=== PATIENT | female | born 1990 | race Caucasian/White ===

== ENCOUNTER 2016-12-01 09:09 | Emergency (ER) | payer OTHER ==
[2016-12-01 09:19] VITALS: RESP 18
--- NOTE | 2016-12-01 09:49 | ED ---
General Adult HPI - General Chief complaint: ENT Stated complaint: Cough/sore throat/headaches Time Seen by Provider: 12/01/16 09:20 Source: patient, RN notes reviewed Mode of arrival: ambulatory Limitations: no limitations - History of Present Illness Initial comments: 26-year-old female presents emergency Department with chief complaint of URI symptoms. Patient states that she just generally does not feel well. She is complaining of body aches, headaches, runny nose, sore throat, cough. She states she has asthma states she has not been wheezing. She's been using her Qvar daily as directed. Patient denies any known fever but states she does feel hot and cold. Patient denies any nausea vomiting diarrhea constipation. Patient denies any ubma-foe-umyrlmh medication use. - Related Data Home Medications Medication Instructions Recorded Confirmed Ibuprofen [Motrin] 200 mg PO ONCE PRN 12/01/16 12/01/16 Previous Rx's Medication Instructions Recorded Promethaz-Cod 6.25-10 mg/5 ml 5 ml PO Q6HR PRN #120 ml 12/01/16 [Phenergan with Codeine] methylPREDNISolone [Medrol Dose 4 mg PO DIRECTED #1 pack 12/01/16 Pack] Allergies Allergy/AdvReac Type Severity Reaction Status Date / Time egg Allergy Unknown Verified 12/01/16 10:24 milk Allergy Unknown Verified 02/14/16 14:38 peanut Allergy Unknown Verified 12/01/16 10:24 pineapple Allergy Swelling Verified 09/11/15 16:25 Review of Systems ROS Statement: Those systems with pertinent positive or pertinent negative responses have been documented in the HPI. ROS Other: All systems not noted in ROS Statement are negative. Past Medical History Additional Past Medical History / Comment(s): BRONCHTIS History of Any Multi-Drug Resistant Organisms: None Reported Past Surgical History: Section Past Psychological History: No Psychological Hx Reported Smoking Status: Former smoker Past Alcohol Use History: Rare Past Drug Use History: None Reported General Exam Limitations: no limitations General appearance: alert, in no apparent distress Head exam: Present: atraumatic, normocephalic, normal inspection Eye exam: Present: normal appearance, PERRL, EOMI. Absent: scleral icterus, conjunctival injection, periorbital swelling ENT exam: Present: normal exam, normal oropharynx, mucous membranes moist, TM's normal bilaterally, normal external ear exam Neck exam: Present: normal inspection, full ROM. Absent: tenderness, meningismus, lymphadenopathy Respiratory exam: Present: normal lung sounds bilaterally. Absent: respiratory distress, wheezes, rales, rhonchi, stridor Cardiovascular Exam: Present: regular rate, normal rhythm, normal heart sounds. Absent: systolic murmur, diastolic murmur, rubs, gallop, clicks GI/Abdominal exam: Present: soft, normal bowel sounds. Absent: distended, tenderness, guarding, rebound, rigid Course Vital Signs 12/01/16 09:17 Temperature 98.2 F Pulse Rate 89 Respiratory 18 Rate Blood Pressure 127/75 O2 Sat by Pulse 98 Oximetry Medical Decision Making - Lab Data Lab Results 12/01/16 12/01/16 Range/Units 09:40 09:40 Influenza Type A RNA Not Detected (Not Detectd) Influenza Type B (PCR) Not Detected (Not Detectd) Group A Strep Rapid Negative (Negative) Disposition Clinical Impression: URI (upper respiratory infection), Asthma Disposition: HOME SELF-CARE Condition: Stable Instructions: Asthma (ED) Additional Instructions: Please return to the Emergency Department if symptoms worsen or any other concerns. Prescriptions: Promethaz-Cod 6.25-10 mg/5 ml [Phenergan with Codeine] 5 ml PO Q6HR PRN #120 ml PRN Reason: Cough methylPREDNISolone [Medrol Dose Pack] 4 mg PO DIRECTED #1 pack Time of Disposition: 11:39
--- NOTE | 2016-12-01 11:22 | XR ---
EXAMINATION TYPE: XR chest 2V DATE OF EXAM: 12/01/2016 10:19 AM COMPARISON: NONE INDICATION: Pain cough congestion TECHNIQUE: Single frontal view of the chest is obtained. FINDINGS: The heart size is normal. The pulmonary vasculature is normal. The lungs are clear. IMPRESSION: 1. No acute pulmonary process.
[2016-12-01 11:52] VITALS: BP 146/67; PULSE 93; TEMP 98.1
== END 2016-12-01 11:52 | disposition home or self-care (01) ==
LOC: EC 09:09
DX: J06.9 Acute upper respiratory infection, unspecified (principal); J45.909 Unspecified asthma, uncomplicated; Z79.51 Long term (current) use of inhaled steroids; Z91.012 Allergy to eggs; Z91.011 Allergy to milk products; Z91.010 Allergy to peanuts; Z91.018 Allergy to other foods; Z87.891 Personal history of nicotine dependence
CPT/HCPCS: 71020; 87081; 87430; 87502; 99283; 99284

== ENCOUNTER 2017-04-12 21:33 | Emergency (ER) | payer OTHER ==
[2017-04-12 21:44] VITALS: TEMP 98.6
[2017-04-12] MEDS ORDERED: SODIUM CHLORIDE 0.9% 500 ML IV STA (21:48)
[2017-04-12] MEDS ORDERED: DICYCLOMINE 20 MG TAB PO STA (21:48)
--- NOTE | 2017-04-12 21:55 | ED ---
Abdominal Pain HPI - General Chief Complaint: Abdominal Pain Stated Complaint: abdominal and back pain Time Seen by Provider: 04/12/17 21:45 Source: patient, RN notes reviewed Mode of arrival: ambulatory Limitations: no limitations - History of Present Illness Initial Comments: 27 -year-old female presents emergency Department chief complaint of abdominal pain over the last few days. Patient states started with left flank pain and now has progressed to diffuse abdominal discomfort. She denies any nausea vomiting diarrhea constipation. She states she initially thought she just slept wrong because she slept in a chair. Patient states that she's had no fever or chills. She states nothing seems to make her symptoms feel better or worse. She does have a history of GERD states that she is having no difficulty with that at this time. Patient states that she has been trying to increase her fluid intake. Patient denies any chest pain, shortness breath some dysuria or hematuria. Denies any chance . Patient did 2 prior sections no other abdominal surgeries. - Related Data Home Medications Medication Instructions Recorded Confirmed Albuterol Sulfate [Ventolin Hfa] 1 - 2 puff INHALATION RT-Q6H PRN 04/12/1704/12 Beclomethasone Dipropionate [Qvar 1 puff INHALATION RT-BID 04/12/17 04/12/17 80 mcg] Previous Rx's Medication Instructions Recorded Dicyclomine [Bentyl] 20 mg PO TID #30 tablet 04/12/17 Allergies Allergy/AdvReac Type Severity Reaction Status Date / Time egg Allergy Unknown Verified 04/12/17 21:46 milk Allergy Unknown Verified 04/12/17 21:46 peanut Allergy Unknown Verified 04/12/17 21:46 pineapple Allergy Swelling Verified 04/12/17 21:46 Review of Systems ROS Statement: Those systems with pertinent positive or pertinent negative responses have been documented in the HPI. ROS Other: All systems not noted in ROS Statement are negative. Past Medical History Past Medical History: Asthma Additional Past Medical History / Comment(s): BRONCHTIS History of Any Multi-Drug Resistant Organisms: None Reported Past Surgical History: Section Additional Past Surgical History / Comment(s): c-sect x 2 Past Psychological History: No Psychological Hx Reported Smoking Status: Current every day smoker Past Alcohol Use History: Rare Past Drug Use History: Marijuana General Exam Limitations: no limitations General appearance: alert, in no apparent distress Neck exam: Present: normal inspection. Absent: tenderness, meningismus, lymphadenopathy Respiratory exam: Present: normal lung sounds bilaterally. Absent: respiratory distress, wheezes, rales, rhonchi, stridor Cardiovascular Exam: Present: regular rate, normal rhythm, normal heart sounds. Absent: systolic murmur, diastolic murmur, rubs, gallop, clicks GI/Abdominal exam: Present: soft, tenderness (mild diffuse), normal bowel sounds. Absent: distended, guarding, rebound, rigid Back exam: Absent: CVA tenderness (R), CVA tenderness (L) Neurological exam: Present: alert, oriented X3, CN II-XII intact Skin exam: Present: warm, dry, intact, normal color. Absent: rash Course Vital Signs 04/12/17 21:40 Temperature 98.6 F Pulse Rate 69 Respiratory 18 Rate Blood Pressure 116/67 O2 Sat by Pulse 98 Oximetry Medical Decision Making - Medical Decision Making 27-year-old female presented emergency from for abdominal pain which is mild in nature and diffuse. This most likely is a viral illness enteritis type picture. Patient lab work within normal limits. Patient be discharged on Bentyl advise increased fluids return parameters were discussed. - Lab Data Result diagrams: 04/12/17 21:55 04/12/17 21:55 Lab Results 04/12/17 04/12/17 04/12/17 Range/Units 21:55 21:55 21:55 WBC 7.7 (3.8-10.6) k/uL RBC 4.51 (3.80-5.40) m/uL Hgb 12.7 (11.4-16.0) gm/dL Hct 38.4 (34.0-46.0) % MCV 85.1 (80.0-100.0) fL MCH 28.2 (25.0-35.0) pg MCHC 33.1 (31.0-37.0) g/dL RDW 14.2 (11.5-15.5) % Plt Count 207 (150-450) k/uL Neutrophils % 67 % Lymphocytes % 23 % Monocytes % 4 % Eosinophils % 5 % Basophils % 0 % Neutrophils # 5.1 (1.3-7.7) k/uL Lymphocytes # 1.8 (1.0-4.8) k/uL Monocytes # 0.3 (0-1.0) k/uL Eosinophils # 0.4 (0-0.7) k/uL Basophils # 0.0 (0-0.2) k/uL Sodium 139 (137-145) mmol/L Potassium 4.2 (3.5-5.1) mmol/L Chloride 110 H (98-107) mmol/L Carbon Dioxide 20 L (22-30) mmol/L Anion Gap 9 mmol/L BUN 12 (7-17) mg/dL Creatinine 0.70 (0.52-1.04) mg/dL Est GFR (MDRD) Af Amer >60 (>60 ml/min/1.73 sqM) Est GFR (MDRD) Non-Af >60 (>60 ml/min/1.73 sqM) Glucose 94 (74-99) mg/dL Calcium 9.1 (8.4-10.2) mg/dL Total Bilirubin 0.4 (0.2-1.3) mg/dL AST 19 (14-36) U/L ALT 28 (9-52) U/L Alkaline Phosphatase 65 (38-126) U/L Total Protein 6.7 (6.3-8.2) g/dL Albumin 4.0 (3.5-5.0) g/dL Amylase 35 (30-110) U/L Lipase 35 (23-300) U/L Urine Color Urine Appearance (Clear) Urine pH (5.0-8.0) Ur Specific [place] (1.001-1.035) Urine Protein (Negative) Urine Glucose (UA) (Negative) Urine Ketones (Negative) Urine Blood (Negative) Urine Nitrite (Negative) Urine Bilirubin (Negative) Urine Urobilinogen (<2.0) mg/dL Ur Leukocyte Esterase (Negative) Urine HCG, Qual Not Detected (Not Detectd) 04/12/17 Range/Units 21:55 WBC (3.8-10.6) k/uL RBC (3.80-5.40) m/uL Hgb (11.4-16.0) gm/dL Hct (34.0-46.0) % MCV (80.0-100.0) fL MCH (25.0-35.0) pg MCHC (31.0-37.0) g/dL RDW (11.5-15.5) % Plt Count (150-450) k/uL Neutrophils % % Lymphocytes % % Monocytes % % Eosinophils % % Basophils % % Neutrophils # (1.3-7.7) k/uL Lymphocytes # (1.0-4.8) k/uL Monocytes # (0-1.0) k/uL Eosinophils # (0-0.7) k/uL Basophils # (0-0.2) k/uL Sodium (137-145) mmol/L Potassium (3.5-5.1) mmol/L Chloride (98-107) mmol/L Carbon Dioxide (22-30) mmol/L Anion Gap mmol/L BUN (7-17) mg/dL Creatinine (0.52-1.04) mg/dL Est GFR (MDRD) Af Amer (>60 ml/min/1.73 sqM) Est GFR (MDRD) Non-Af (>60 ml/min/1.73 sqM) Glucose (74-99) mg/dL Calcium (8.4-10.2) mg/dL Total Bilirubin (0.2-1.3) mg/dL AST (14-36) U/L ALT (9-52) U/L Alkaline Phosphatase (38-126) U/L Total Protein (6.3-8.2) g/dL Albumin (3.5-5.0) g/dL Amylase (30-110) U/L Lipase (23-300) U/L Urine Color Yellow Urine Appearance Clear (Clear) Urine pH 6.0 (5.0-8.0) Ur Specific [place] 1.027 (1.001-1.035) Urine Protein Trace H (Negative) Urine Glucose (UA) Negative (Negative) Urine Ketones Negative (Negative) Urine Blood Negative (Negative) Urine Nitrite Negative (Negative) Urine Bilirubin Negative (Negative) Urine Urobilinogen 2.0 (<2.0) mg/dL Ur Leukocyte Esterase Negative (Negative) Urine HCG, Qual (Not Detectd) Disposition Clinical Impression: Abdominal pain Disposition: HOME SELF-CARE Condition: Stable Instructions: Abdominal Pain (ED) Additional Instructions: Please return to the Emergency Department if symptoms worsen or any other concerns. Prescriptions: Dicyclomine [Bentyl] 20 mg PO TID #30 tablet Referrals: Chace Meng MD [Primary Care Provider] - 1-2 days Time of Disposition: 22:45
[2017-04-12 22:12] LABS: Appearance,Urine Clear (Clear); Bilirubin,Urine Negative (Negative); Glucose,Urine (UA) Negative (Negative); Ketones,Urine Negative (Negative); Leukocyte Esterase,Urine Negative (Negative); Nitrite,Urine Negative (Negative); Protein,Urine Trace (Negative); Specific Gravity,Urine 1.027 (1.001-1.035); UA Billing (MACRO vs. MICRO) CHEM
[2017-04-12 22:14] LABS: Basophils % (A) 0 %; CH 27.9; Eosinophils # (A) 0.4 k/uL (0-0.7); Eosinophils % (A) 5 %; HCT 38.4 % (34.0-46.0); HDW 2.52; HGB 12.7 gm/dL (11.4-16.0); Luc % (Auto) 1; Lymphocytes # (A) 1.8 k/uL (1.0-4.8); Lymphocytes % (A) 23 %; MCH 28.2 pg (25.0-35.0); MCHC 33.1 g/dL (31.0-37.0); MCV 85.1 fL (80.0-100.0); Mean Platelet Volume 8.5; Monocytes # (A) 0.3 k/uL (0-1.0); Monocytes % (A) 4 %; Neutrophils # (A) 5.1 k/uL (1.3-7.7); Neutrophils % (A) 67 %; RBC 4.51 m/uL (3.80-5.40); RDW 14.2 % (11.5-15.5); WBC 7.7 k/uL (3.8-10.6); WBC (Perox) 8.14
[2017-04-12 22:22] LABS: ALT 28 U/L (9-52); AST 19 U/L (14-36); Alkaline Phosphatase 65 U/L (38-126); Amylase 35 U/L (30-110); Anion Gap 9 mmol/L; Blood Urea Nitrogen 12 mg/dL (7-17); Calcium 9.1 mg/dL (8.4-10.2); Carbon Dioxide 20 mmol/L (22-30); Chloride 110 mmol/L (98-107); Glucose 94 mg/dL (74-99); Non-African American GFR(MDRD) >60 (>60 ml/min/1.73 sqM); Potassium 4.2 mmol/L (3.5-5.1); Sodium 139 mmol/L (137-145); Total Bilirubin 0.4 mg/dL (0.2-1.3); Total Protein 6.7 g/dL (6.3-8.2)
[2017-04-12 23:08] VITALS: BP 111/74; PULSE 77; RESP 16
--- NOTE | 2017-04-13 02:58 | XR ---
EXAM: XR Abdomen, 1 View. CLINICAL HISTORY: Reason: abdominal pain TECHNIQUE: Frontal supine view of the abdomen/pelvis. COMPARISON: No relevant prior studies available. FINDINGS: Gastrointestinal tract: Unremarkable. No dilation. Bones: Unremarkable. No acute fracture. IMPRESSION: Normal abdomen and pelvis.
== END 2017-04-12 23:07 | disposition home or self-care (01) ==
LOC: EC 21:33
DX: R10.84 Generalized abdominal pain (principal); J45.909 Unspecified asthma, uncomplicated; Z79.51 Long term (current) use of inhaled steroids; F17.200 Nicotine dependence, unspecified, uncomplicated; Z91.010 Allergy to peanuts; Z91.011 Allergy to milk products; Z91.012 Allergy to eggs; Z91.018 Allergy to other foods
CPT/HCPCS: 36415; 74000; 80053; 81003; 81025; 82150; 83690; 85025; 96360; 99284

== ENCOUNTER 2017-04-28 18:30 | Emergency (ER) | payer OTHER ==
[2017-04-28 18:39] VITALS: BP 128/63; PULSE 76; RESP 18; TEMP 97.5
--- NOTE | 2017-04-28 18:49 | ED ---
General Adult HPI - General Chief complaint: Dental/Oral Stated complaint: Dental Time Seen by Provider: 04/28/17 18:40 Source: patient, RN notes reviewed Mode of arrival: ambulatory Limitations: no limitations - History of Present Illness Initial comments: 19-year-old female presents emergency room chief complaint of left-sided dental pain. Patient states this started about 3 days ago. Patient states that she continues to have throbbing and irritation to the left side of her mouth. Patient states that there is been no drainage or discharge patient denies any fever or chills. Patient states she doesn't currently have dental insurance. Patient was concerned due to her symptoms so she thought that she should be evaluated. Patient states she is not currently having any other symptoms at this time.Patient denies any recent fever, chills, shortness of breath, chest pain, back pain, abdominal pain, nausea vomiting, numbness or tingling, dysuria or hematuria, constipation or diarrhea, headaches or visual changes, or any other current symptoms. - Related Data Home Medications Medication Instructions Recorded Confirmed Albuterol Sulfate [Ventolin Hfa] 1 - 2 puff INHALATION RT-Q6H PRN 04/12/1704/12 Beclomethasone Dipropionate [Qvar 1 puff INHALATION RT-BID 04/12/17 04/12/17 80 mcg] Previous Rx's Medication Instructions Recorded Dicyclomine [Bentyl] 20 mg PO TID #30 tablet 04/12/17 Penicillin V Potassium [Pen Vee K] 500 mg PO TID #40 tab 04/28/17 traMADol HCl [Ultram] 50 mg PO Q4H PRN #20 tab 04/28/17 Allergies Allergy/AdvReac Type Severity Reaction Status Date / Time egg Allergy Unknown Verified 04/28/17 18:39 milk Allergy Unknown Verified 04/28/17 18:39 peanut Allergy Unknown Verified 04/28/17 18:39 pineapple Allergy Swelling Verified 04/28/17 18:39 Review of Systems ROS Statement: Those systems with pertinent positive or pertinent negative responses have been documented in the HPI. ROS Other: All systems not noted in ROS Statement are negative. Past Medical History Past Medical History: Asthma Additional Past Medical History / Comment(s): BRONCHITIS History of Any Multi-Drug Resistant Organisms: None Reported Past Surgical History: Section Additional Past Surgical History / Comment(s): c-sect x 2 Past Psychological History: No Psychological Hx Reported Smoking Status: Current every day smoker Past Alcohol Use History: Occasional Past Drug Use History: Marijuana General Exam Limitations: no limitations General appearance: alert Head exam: Present: atraumatic, normocephalic, normal inspection ENT exam: Present: normal exam, mucous membranes moist, other (Patient does appear to have a fracture to tooth #16 no obvious abscess identified) Neck exam: Present: normal inspection. Absent: tenderness, meningismus, lymphadenopathy Respiratory exam: Present: normal lung sounds bilaterally. Absent: respiratory distress, wheezes, rales, rhonchi, stridor Cardiovascular Exam: Present: regular rate, normal rhythm, normal heart sounds. Absent: systolic murmur, diastolic murmur, rubs, gallop, clicks Neurological exam: Present: alert, oriented X3 Psychiatric exam: Present: normal affect, normal mood Skin exam: Present: warm, dry, intact, normal color. Absent: rash Course Vital Signs 04/28/17 18:36 Temperature 97.5 F L Pulse Rate 76 Respiratory 18 Rate Blood Pressure 128/63 O2 Sat by Pulse 98 Oximetry Medical Decision Making - Medical Decision Making 19-year-old female presents for dental pain. This and will start her on antibiotics and pain medication. We did discuss close follow-up with the dentist we did discuss return parameters all the questions. She stated that she understood and she is in splint. This time patient will be discharged home. Disposition Clinical Impression: Dental caries Disposition: HOME SELF-CARE Condition: Stable Instructions: Dental Caries (ED) Additional Instructions: Please use medication as discussed. Please follow up with family doctor if symptoms have not improved over the next two days. Please return to the emergency room if your symptoms increase or worsen or for any other concerns. [facility] [place] [address] [phone] (existing clients only) For new clients: [phone] 1st consult: $50 (includes Xrays) Usually 30% less then private dentist for visits after. [employer] Have to pay $50 for Xrays anmd rest is covered. [phone] Prescriptions: Penicillin V Potassium [Pen Vee K] 500 mg PO TID #40 tab traMADol HCl [Ultram] 50 mg PO Q4H PRN #20 tab PRN Reason: Pain Referrals: Chace Meng MD [Primary Care Provider] - 1-2 days Time of Disposition: 18:49
== END 2017-04-28 18:55 | disposition home or self-care (01) ==
LOC: EC 18:30
DX: K02.9 Dental caries, unspecified (principal); J45.909 Unspecified asthma, uncomplicated; F17.200 Nicotine dependence, unspecified, uncomplicated; Z79.51 Long term (current) use of inhaled steroids; Z91.012 Allergy to eggs; Z91.011 Allergy to milk products; Z91.010 Allergy to peanuts; Z91.018 Allergy to other foods
CPT/HCPCS: 99282

== ENCOUNTER 2017-05-22 10:46 | Emergency (ER) | payer BC, OTHER ==
[2017-05-22 12:34] VITALS: PULSE 74; TEMP 98.2
[2017-05-22 12:50] LABS: Basophils % (A) 0 %; CH 28.9; CHCM 33.5; Eosinophils # (A) 0.4 k/uL (0-0.7); Eosinophils % (A) 5 %; HCT 38.9 % (34.0-46.0); HDW 2.29; HGB 13.1 gm/dL (11.4-16.0); Luc # (Auto) 0.08; Luc % (Auto) 1; Lymphocytes # (A) 1.5 k/uL (1.0-4.8); Lymphocytes % (A) 20 %; MCH 29.3 pg (25.0-35.0); MCHC 33.7 g/dL (31.0-37.0); MCV 86.7 fL (80.0-100.0); Mean Platelet Volume 8.3; Monocytes # (A) 0.3 k/uL (0-1.0); Monocytes % (A) 4 %; Neutrophils # (A) 5.1 k/uL (1.3-7.7); Neutrophils % (A) 69 %; RBC 4.49 m/uL (3.80-5.40); RDW 14.7 % (11.5-15.5); WBC 7.3 k/uL (3.8-10.6); WBC (Perox) 7.44
[2017-05-22 13:31] LABS: Appearance,Urine Cloudy (Clear); Bilirubin,Urine Negative (Negative); Glucose,Urine (UA) Negative (Negative); Ketones,Urine Negative (Negative); Leukocyte Esterase,Urine Trace (Negative); Mucus,Urine Occasional /hpf; Nitrite,Urine Negative (Negative); PH, Urine 6.5 (5.0-8.0); Particle Count 5044; Protein,Urine 1+ (Negative); RBC,Urine 19 /hpf (0-5); Specific Gravity,Urine 1.021 (1.001-1.035); Squamous Epithelial Cell,Urine 8 /hpf (0-4); UA Billing (MACRO vs. MICRO) MICRO; WBC,Urine 3 /hpf (0-5)
--- NOTE | 2017-05-22 13:40 | US ---
EXAMINATION TYPE: US OB <= 14 wk fetus DATE OF EXAM: 05/22/2017 COMPARISON: NONE CLINICAL HISTORY: Pain. Pelvic cramping and bleeding x 1 day, 6, para 3, 1, miscarri age 1, history of 2 c-sections EXAM PERFORMED: Transabdominal (TA) EXAM MEASUREMENTS: GESTATIONAL AGE / DATING Physician Established: ( 8 weeks/5 days) EDC: 12/27/2017 Dates by LMP: Unknown Dates by First Scan: No previous Dates by Current Scan for: (9 weeks/1 days) EDC: 12/24/2017 MATERNAL ANATOMY Uterus: 12.3 x 6.1 x 6.9cm, anteverted Right Ovary: 3.2 x 1.5 x 1.7cm Left Ovary: 2.7 x 1.6 x 2.8cm Post CDS / Adnexa: wnl Presence of free fluid: no Presence of corpus luteal cyst: left ovary: 1.4 x 1.2 x 1.1cm hypoechoic area with peripheral vascula rity, probable corpus luteum Presence of subchorionic bleed: 2.5 x 1.0 x 2.2cm hypoechoic area inferior to gestational sac, relati ng to subchorionic hemorrhage GESTATION / SURVEY CRL: 2.5cm (9 weeks/1 days) Yolk Sac (normal less than 6mm): 3.7mm Heart Rate: 175 bpm Rhythm: Normal IUP: Viable IUP Date of LMP: Unknown Beta HcG (if available): Not available at time of exam Viable single IUP measuring 9 weeks 1 day with a heart rate of 175bpm and an estimated delivery date of 12/24/2017, 2.5cm hypoechoic area inferior to gestational sac, probable subchorionic bleed. IMPRESSION: 1. Single live intrauterine with a sonographic age of 9 weeks and 1 day and estimated date of delivery of 12/24/2017. Small subchorionic hemorrhage is seen that is approximately 25% the gestati onal sac diameter.
[2017-05-22] MEDS ORDERED: Rhogam IMMUNE GLOBULIN 1,500 UNIT/1 ML IM ONE (13:49)
--- NOTE | 2017-05-22 13:49 | ED ---
Female Urogenital HPI - General Chief complaint: Vaginal Bleeding Stated complaint: poss miscarrage Time Seen by Provider: 05/22/17 12:04 Source: patient, RN notes reviewed, old records reviewed Mode of arrival: ambulatory Limitations: no limitations - History of Present Illness Initial comments: This is a female with CC of vaginal bleeding for one day. She states that she is 8 weeks . She reports she came home from work, and that she had a sudden hua of vaginal bleeding. Patient reports that her OBGYN is Dr. Tineo, but she has not been seen by her for this . She states that her bleeding seemed to slow down. She denies any abdominal pain, and denies any nausea, vomiting. Denies any heavy lifting or trauma to cause the bleeding. She states that she has a negative blood type. Last Menstrual Period: 03/22/17 - Related Data Home Medications Medication Instructions Recorded Confirmed Albuterol Sulfate [Ventolin Hfa] 1 - 2 puff INHALATION RT-QID PRN 04/12/1705/22 Beclomethasone Dipropionate [Qvar 1 - 2 puff INHALATION RT-BID 04/12/17 05/22/17 80 mcg] Allergies Allergy/AdvReac Type Severity Reaction Status Date / Time egg Allergy Unknown Verified 05/22/17 12:45 milk Allergy Unknown Verified 05/22/17 12:45 peanut Allergy Unknown Verified 05/22/17 12:45 pineapple Allergy Swelling Verified 05/22/17 12:45 Review of Systems ROS Statement: Those systems with pertinent positive or pertinent negative responses have been documented in the HPI. ROS Other: All systems not noted in ROS Statement are negative. Past Medical History Past Medical History: Asthma Additional Past Medical History / Comment(s): BRONCHITIS History of Any Multi-Drug Resistant Organisms: None Reported Past Surgical History: Section Additional Past Surgical History / Comment(s): c-sect x 2 Past Psychological History: No Psychological Hx Reported Smoking Status: Current every day smoker Past Alcohol Use History: Occasional Past Drug Use History: Marijuana General Exam - General Exam Comments Initial Comments: This is a well appearing 27 year old female, no distress. Limitations: no limitations General appearance: alert, in no apparent distress Head exam: Present: atraumatic, normocephalic, normal inspection Eye exam: Present: normal appearance, PERRL, EOMI. Absent: scleral icterus, conjunctival injection, periorbital swelling ENT exam: Present: normal exam, mucous membranes moist Neck exam: Present: normal inspection. Absent: tenderness, meningismus, lymphadenopathy Respiratory exam: Present: normal lung sounds bilaterally. Absent: respiratory distress, wheezes, rales, rhonchi, stridor Cardiovascular Exam: Present: regular rate, normal rhythm, normal heart sounds. Absent: systolic murmur, diastolic murmur, rubs, gallop, clicks External exam: Present: normal external exam Speculum exam: Present: vaginal bleeding (cervix appears closed, but there is some bleeding from os.). Absent: normal speculum exam Extremities exam: Present: normal inspection, full ROM, normal capillary refill. Absent: tenderness, pedal edema, joint swelling, calf tenderness Back exam: Present: normal inspection Neurological exam: Present: alert, oriented X3, CN II-XII intact Psychiatric exam: Present: normal affect, normal mood Skin exam: Present: warm, dry, intact, normal color. Absent: rash Course Vital Signs 05/22/17 05/22/17 05/22/17 11:18 12:34 15:06 Temperature 98.3 F 98.2 F Pulse Rate 98 74 74 Respiratory 20 18 17 Rate Blood Pressure 145/78 114/53 116/64 O2 Sat by Pulse 99 97 100 Oximetry Medical Decision Making - Medical Decision Making Thisis a 27 year old female with vaginal bleedling for one day. Pt states that she is around 8 weeks . She is taking prenatals. She states that she had a sudden hua of blood, has no abdominal tenderness, and no severe cramping. Patient cervix is closed, and there is some mild bleeding from the cervical os. Patient Hcg is 111,457, and blood type is O-. US shows Single live intrauterine with sonographic age of 9 weeks 1 day. Estimated date of delivery is 12/22/2017. Small subchorionic hemorrhage at the scene approximately 25% the gestational sac name. Given bleeding with , and negative Rh, patient is given Rhogam. Discussed that patient needs to repeat Hcg in 2 days. Patient informed that due to subchorionic bleed, that can be due to the bleeding at this time, however she can still be miscarrying. Patient advised on pelvic rest and that she needs to follow up with PCP. REturn parameters discussed. - Lab Data Result diagrams: 05/22/17 12:28 Lab Results 05/22/17 05/22/17 05/22/17 Range/Units 12:28 12:28 12:28 WBC 7.3 (3.8-10.6) k/uL RBC 4.49 (3.80-5.40) m/uL Hgb 13.1 (11.4-16.0) gm/dL Hct 38.9 (34.0-46.0) % MCV 86.7 (80.0-100.0) fL MCH 29.3 (25.0-35.0) pg MCHC 33.7 (31.0-37.0) g/dL RDW 14.7 (11.5-15.5) % Plt Count 215 (150-450) k/uL Neutrophils % 69 % Lymphocytes % 20 % Monocytes % 4 % Eosinophils % 5 % Basophils % 0 % Neutrophils # 5.1 (1.3-7.7) k/uL Lymphocytes # 1.5 (1.0-4.8) k/uL Monocytes # 0.3 (0-1.0) k/uL Eosinophils # 0.4 (0-0.7) k/uL Basophils # 0.0 (0-0.2) k/uL HCG, Quant 307994.0 mIU/mL Urine Color Urine Appearance (Clear) Urine pH (5.0-8.0) Ur Specific [place] (1.001-1.035) Urine Protein (Negative) Urine Glucose (UA) (Negative) Urine Ketones (Negative) Urine Blood (Negative) Urine Nitrite (Negative) Urine Bilirubin (Negative) Urine Urobilinogen (<2.0) mg/dL Ur Leukocyte Esterase (Negative) Urine RBC (0-5) /hpf Urine WBC (0-5) /hpf Ur Squamous Epith Cells (0-4) /hpf Urine Mucus (None) /hpf Blood Type O Negative Blood Type Recheck O Neg Antibody Screen 05/22/17 05/22/17 Range/Units 12:28 13:49 WBC (3.8-10.6) k/uL RBC (3.80-5.40) m/uL Hgb (11.4-16.0) gm/dL Hct (34.0-46.0) % MCV (80.0-100.0) fL MCH (25.0-35.0) pg MCHC (31.0-37.0) g/dL RDW (11.5-15.5) % Plt Count (150-450) k/uL Neutrophils % % Lymphocytes % % Monocytes % % Eosinophils % % Basophils % % Neutrophils # (1.3-7.7) k/uL Lymphocytes # (1.0-4.8) k/uL Monocytes # (0-1.0) k/uL Eosinophils # (0-0.7) k/uL Basophils # (0-0.2) k/uL HCG, Quant mIU/mL Urine Color Yellow Urine Appearance Cloudy H (Clear) Urine pH 6.5 (5.0-8.0) Ur Specific [place] 1.021 (1.001-1.035) Urine Protein 1+ H (Negative) Urine Glucose (UA) Negative (Negative) Urine Ketones Negative (Negative) Urine Blood Large H (Negative) Urine Nitrite Negative (Negative) Urine Bilirubin Negative (Negative) Urine Urobilinogen 2.0 (<2.0) mg/dL Ur Leukocyte Esterase Trace H (Negative) Urine RBC 19 H (0-5) /hpf Urine WBC 3 (0-5) /hpf Ur Squamous Epith Cells 8 H (0-4) /hpf Urine Mucus Occasional H (None) /hpf Blood Type Blood Type Recheck Antibody Screen NEGATIVE - Radiology Data Radiology results: report reviewed Single live intrauterine with sonographic age of 9 weeks 1 day. Estimated date of delivery is 12/22/2017. Small subchorionic hemorrhage at the scene approximately 25% the gestational sac name. Disposition Clinical Impression: Threatened miscarriage, Subchorionic hemorrhage in first trimester Disposition: HOME SELF-CARE Condition: Good Instructions: Miscarriage (ED) Additional Instructions: Patient needs pelvic rest, until following up with MEDICAL TECHNOLOGIST GENERALIST. No heavy lifting. Repeat blood work in 2 days. Return to the emergency department if any alarming signs or symptoms occur. Referrals: Chace Meng MD [Primary Care Provider] - 1-2 days Ruba Tineo DO [Doctor of Osteopathic Medicine] - 1-2 days Time of Disposition: 14:32
[2017-05-22 15:07] VITALS: BP 116/64; RESP 17
== END 2017-05-22 15:07 | disposition home or self-care (01) ==
LOC: EC 10:46
DX: O20.0 Threatened abortion (principal); O99.89 Other specified diseases and conditions complicating pregnancy, childbirth and the puerperium; R93.5 Abnormal findings on diagnostic imaging of other abdominal regions, including retroperitoneum; O99.331 Smoking (tobacco) complicating pregnancy, first trimester; F17.200 Nicotine dependence, unspecified, uncomplicated; Z3A.09 9 weeks gestation of pregnancy; Z91.010 Allergy to peanuts; Z91.011 Allergy to milk products; Z91.012 Allergy to eggs; Z91.018 Allergy to other foods; Z79.899 Other long term (current) drug therapy
CPT/HCPCS: 99284; 96372; 36415; 86900; 86901; 85025; 86850; 81001; 84702; 76801; J2791

== ENCOUNTER → 2017-05-24 | Outpatient (CLI) | payer BC, OTHER | END | disposition home or self-care (01) | LOC: LABMAIN 12:29 | PROVIDERS: ATTEND Family Medicine | DX: O20.0 Threatened abortion (principal) | CPT/HCPCS: 36415; 84702 ==

== ENCOUNTER 2017-06-07 22:48 | Emergency (ER) | payer BC, OTHER ==
[2017-06-07] MEDS ORDERED: IPRATROPIUM 0.5 MG/2.5 ML NEBU INHALATION STA (23:47)
[2017-06-07] MEDS ORDERED: predniSONE 20 MG TAB PO STA (23:47)
[2017-06-07] MEDS ORDERED: ALBUTEROL NEBULIZED 2.5 MG/3 ML INHALATION STA (23:47)
--- NOTE | 2017-06-07 23:50 | ED ---
General Adult HPI - General Chief complaint: Shortness of Breath Stated complaint: SOB Time Seen by Provider: 06/07/17 23:39 Source: patient, RN notes reviewed Mode of arrival: ambulatory Limitations: no limitations - History of Present Illness Initial comments: 27-year-old female presents for evaluation of cough and difficulty breathing. Patient has past medical history of asthma. She's had proximally one month history of cough and difficulty breathing. She has been using her inhaler and nebulizer peak control with minimal relief. She has not been any steroids or antibiotics. Denies fever. Denies chest pain. Patient is currently 12 weeks . Denies any abdominal pain or vaginal bleeding. Patient's cough is occasionally productive with clear phlegm. She has been hospitalized for her asthma in the past, no ICU admissions, no intubations. Patient's primary care doctor did prescribe inhaled steroids, however the patient's insurance does not cover this medication. - Related Data Home Medications Medication Instructions Recorded Confirmed Albuterol Sulfate [Ventolin Hfa] 1 - 2 puff INHALATION RT-QID PRN 04/12/1706/07 Beclomethasone Dipropionate [Qvar 1 - 2 puff INHALATION RT-BID 04/12/17 06/07/17 80 mcg] Cetirizine HCl 10 mg PO DAILY 06/07/17 06/07/17 Hab-Rvcu-Kkykn Acid 1 cap PO DAILY 06/07/17 06/07/17 [-U Capsule (formulary)] Previous Rx's Medication Instructions Recorded predniSONE 50 mg PO DAILY #5 tablet 06/08/17 Allergies Allergy/AdvReac Type Severity Reaction Status Date / Time egg Allergy Unknown Verified 06/07/17 23:34 milk Allergy Unknown Verified 06/07/17 23:34 peanut Allergy Unknown Verified 06/07/17 23:34 pineapple Allergy Swelling Verified 06/07/17 23:34 Review of Systems ROS Statement: Those systems with pertinent positive or pertinent negative responses have been documented in the HPI. ROS Other: All systems not noted in ROS Statement are negative. Past Medical History Past Medical History: Asthma Additional Past Medical History / Comment(s): BRONCHITIS History of Any Multi-Drug Resistant Organisms: None Reported Past Surgical History: Section Additional Past Surgical History / Comment(s): c-sect x 2 Past Psychological History: No Psychological Hx Reported Smoking Status: Current every day smoker Past Alcohol Use History: Occasional Past Drug Use History: Marijuana General Exam Limitations: no limitations General appearance: alert, in no apparent distress Head exam: Present: atraumatic, normocephalic Eye exam: Present: normal appearance, PERRL ENT exam: Present: normal exam, mucous membranes moist Neck exam: Present: normal inspection Respiratory exam: Present: wheezes, other (Patient has good air entry, bronchospastic cough, and scattered wheezing throughout). Absent: rales, rhonchi, accessory muscle use Cardiovascular Exam: Present: normal rhythm, tachycardia GI/Abdominal exam: Present: soft. Absent: distended, tenderness Extremities exam: Present: normal inspection, normal capillary refill. Absent: pedal edema, calf tenderness Back exam: Present: normal inspection Neurological exam: Present: alert, oriented X3 Psychiatric exam: Present: normal affect, normal mood Skin exam: Present: warm, dry. Absent: cyanosis, diaphoretic Course Vital Signs 06/07/17 06/08/17 06/08/17 23:14 00:19 00:30 Temperature 99.2 F Pulse Rate 107 H 108 H 112 H Respiratory 22 Rate Blood Pressure 130/85 O2 Sat by Pulse 100 Oximetry - Reevaluation(s) Reevaluation #1: 06/08/17 00:44 On reevaluation, patient is feeling better, good air entry bilaterally with only scattered wheeze. Medical Decision Making - Medical Decision Making 27-year-old female with history of asthma presenting with a one-month history of cough and difficulty breathing. This has significantly worsened over the past 5 days. On initial evaluation patient does have pronounced bronchospastic cough, and except for wheeze. There is no respiratory distress. She is given albuterol, Atrovent, and prednisone emergency department. On reevaluation patient has improved air entry, improve cough, there is no retractions or accessory muscle use. Patient has no conversational dyspnea. She will be given a prescription for 5 days of prednisone. She'll follow-up with her primary care physician. She states she does have both a rescue inhaler and advised albuterol at home. Diagnosis: Asthma exacerbation Disposition Clinical Impression: Asthma with exacerbation Disposition: HOME SELF-CARE Condition: Good Instructions: Asthma (ED) Prescriptions: predniSONE 50 mg PO DAILY #5 tablet Referrals: Chace Meng MD [Primary Care Provider] - 1-2 days Time of Disposition: 00:47
[2017-06-08 00:57] VITALS: BP 118/70; PULSE 78; RESP 16; TEMP 97.8
== END 2017-06-08 00:55 | disposition home or self-care (01) ==
LOC: EC 22:48
DX: O99.511 Diseases of the respiratory system complicating pregnancy, first trimester (principal); J45.901 Unspecified asthma with (acute) exacerbation; O99.331 Smoking (tobacco) complicating pregnancy, first trimester; F17.200 Nicotine dependence, unspecified, uncomplicated; Z79.51 Long term (current) use of inhaled steroids; Z79.899 Other long term (current) drug therapy; Z91.010 Allergy to peanuts; Z91.011 Allergy to milk products; Z91.012 Allergy to eggs; Z91.018 Allergy to other foods; Z3A.12 12 weeks gestation of pregnancy
CPT/HCPCS: 94640; 99284; J7512

== ENCOUNTER → 2017-06-29 | Outpatient (CLI) | payer OTHER ==
[2017-06-29 09:28] LABS: CH 29.8; HCT 38.8 % (34.0-46.0); HDW 2.61; HGB 12.5 gm/dL (11.4-16.0); MCH 29.4 pg (25.0-35.0); MCHC 32.3 g/dL (31.0-37.0); MCV 90.9 fL (80.0-100.0); Mean Platelet Volume 7.9; RBC 4.27 m/uL (3.80-5.40)
[2017-06-29 09:55] LABS: Glucose 89 mg/dL (74-99); Non-African American GFR(MDRD) >60 (>60 ml/min/1.73 sqM)
[2017-06-29 10:16] LABS: Hepatitis B Surface Ag Index 0.06
[2017-06-29 17:01] LABS: Treponemal Ab Non-Reactive (Non-Reactive)
== END | disposition home or self-care (01) ==
LOC: LABWHC1 08:43
PROVIDERS: ATTEND Obstetrics & Gynecology
DX: Z34.81 Encounter for supervision of other normal pregnancy, first trimester (principal); Z3A.00 Weeks of gestation of pregnancy not specified
CPT/HCPCS: 36415; 82565; 82947; 85027; 86762; 86780; 86850; 86870; 86880; 86900; 86901; 87340; 87390

== ENCOUNTER 2017-06-30 12:29 | Inpatient (IN) | payer OTHER ==
[2017-06-30] MEDS ORDERED: IPRATROPIUM-ALBUTEROL 3 ML NEB INHALATION STA (13:11)
--- NOTE | 2017-06-30 14:11 | XR ---
EXAMINATION TYPE: XR chest 2V DATE OF EXAM: 06/30/2017 COMPARISON: Chest x-ray December 01, 2016 HISTORY: History of asthma presents with shortness of breath. Patient orally second trimester pregnan cy. TECHNIQUE: Frontal and lateral views of the chest are obtained. FINDINGS: There is suspicious airspace opacity in the left lung base near heart border on frontal vi ew likely within the lingula on lateral view. Silhouetting of left heart border is noted. Right lung is clear. No large pleural effusion or pneumothorax is seen. The cardiac silhouette size is within no rmal limits. The osseous structures are intact. IMPRESSION: New suspicious lingular infiltrate confirmed on 2 views.
--- NOTE | 2017-06-30 14:19 | ED ---
General Adult HPI - General Source: patient, RN notes reviewed Mode of arrival: wheelchair Limitations: no limitations <Missael Mcgee - Last Filed: 06/30/17 15:09> <Ruy Whiting - Last Filed: 07/01/17 00:49> - General Chief complaint: Chest Pain Stated complaint: Chest pain/sob Time Seen by Provider: 06/30/17 12:58 - History of Present Illness Initial comments: This a 27-year-old female presents emergency Department with chief complaint of shortness breath, cough or chest congestion. Patient states she's been sick for last month. Patient states she's been having problems with her asthma. Patient is currently approximately 12 weeks. Patient states that they have been trying to switch her inhalers and updraft she's had no relief. Patient states that she has been wheezing tremendously and symptoms do get worse when she goes outside. Patient denies any current fever, chills. Denies any abdominal pain including vaginal bleeding or vaginal discharge. (Missael Mcgee) - Related Data Home Medications Medication Instructions Recorded Confirmed Albuterol Sulfate [Ventolin Hfa] 2 puff INHALATION RT-QID PRN 04/12/17 06/30/17 Beclomethasone Dipropionate [Qvar 2 puff INHALATION RT-BID 04/12/17 06/30/17 80 mcg] Cetirizine HCl 10 mg PO HS 06/07/17 06/30/17 Albuterol Nebulized [Ventolin 2.5 mg INHALATION RT-QID 06/30/17 06/30/17 Nebulized] Ipratropium Nebulized [Atrovent 0.5 mg INHALATION RT-QID 06/30/17 06/30/17 Nebulized] Allergies Allergy/AdvReac Type Severity Reaction Status Date / Time egg Allergy Unknown Verified 06/30/17 14:04 milk Allergy Unknown Verified 06/30/17 14:04 peanut Allergy Unknown Verified 06/30/17 14:04 pineapple Allergy Swelling Verified 06/30/17 14:04 Review of Systems ROS Other: All systems not noted in ROS Statement are negative. <Missael Mcgee - Last Filed: 06/30/17 15:09> ROS Other: All systems not noted in ROS Statement are negative. <Ruy Whiting - Last Filed: 07/01/17 00:49> ROS Statement: Those systems with pertinent positive or pertinent negative responses have been documented in the HPI. Past Medical History Past Medical History: Asthma Additional Past Medical History / Comment(s): BRONCHITIS History of Any Multi-Drug Resistant Organisms: None Reported Past Surgical History: Section Additional Past Surgical History / Comment(s): c-sect x 2 Past Psychological History: No Psychological Hx Reported Smoking Status: Former smoker Past Alcohol Use History: None Reported Past Drug Use History: None Reported <Missael Mcgee - Last Filed: 06/30/17 15:09> - Past Family History Mother Family Medical History: Asthma, Thyroid Disorder Additional Family Medical History / Comment(s): cholecystitis Father Family Medical History: Unable to Obtain <Ruy Whiting - Last Filed: 07/01/17 00:49> General Exam Limitations: no limitations General appearance: alert, in no apparent distress Head exam: Present: atraumatic, normocephalic, normal inspection Eye exam: Present: normal appearance, PERRL, EOMI. Absent: scleral icterus, conjunctival injection, periorbital swelling ENT exam: Present: normal exam, normal oropharynx, mucous membranes moist, TM's normal bilaterally, normal external ear exam Neck exam: Present: normal inspection, full ROM. Absent: tenderness, meningismus, lymphadenopathy Respiratory exam: Present: respiratory distress (Mild), wheezes (Diffuse bilateral). Absent: normal lung sounds bilaterally, rales, rhonchi, stridor Cardiovascular Exam: Present: normal rhythm, tachycardia, normal heart sounds. Absent: systolic murmur, diastolic murmur, rubs, gallop, clicks GI/Abdominal exam: Present: soft, normal bowel sounds. Absent: distended, tenderness, guarding, rebound, rigid Neurological exam: Present: alert, oriented X3, CN II-XII intact Skin exam: Present: warm, dry, intact, normal color. Absent: rash <Missael Mcgee - Last Filed: 06/30/17 15:09> Medical Decision Making <Missael Mcgee - Last Filed: 06/30/17 15:09> - Lab Data Result diagrams: 06/30/17 15:00 06/30/17 15:00 <Ruy Whiting - Last Filed: 07/01/17 00:49> - Medical Decision Making 27-year-old female presents from for shortness of breath, asthma. Patient appears to have lingular pneumonia. Patient is also having an asthma exacerbation. She's been minimally with treatments in the emergency department. Patient be admitted for further treatment, antibiotics and steroids. (Missael Mcgee) 19-year-old female with history of asthma presents with cough and dyspnea. Chest x-ray does show lingular pneumonia. Patient feels improved with this treatment of albuterol and Atrovent. She will be admitted for further steroids and nebulized albuterol. (Ruy Whiting) Disposition <Missael Mcgee - Last Filed: 06/30/17 15:09> <Ruy Whiting - Last Filed: 07/01/17 00:49> Clinical Impression: Asthma with exacerbation, Pneumonia, Disposition: ADMITTED IP TO THIS HOSP Condition: Fair
[2017-06-30] MEDS ORDERED: SODIUM CHLORIDE 0.9% 1,000 ML IV ONE (14:31)
[2017-06-30] MEDS ORDERED: AZITHROMYCIN 500 MG in SODIUM CHLORIDE 0.9% 250 ML IVPB STA (14:34)
[2017-06-30] MEDS ORDERED: methylPREDNISolone SOD SUCCI 125 MG/2 ML VIAL IV STA (14:36)
[2017-06-30] MEDS ORDERED: NALOXONE 0.4 MG/ML 1 ML VIAL IV PRN (15:11)
[2017-06-30] MEDS ORDERED: LEVALBUTEROL NEB 1.25 MG/3 ML AMP INHALATION PRN (15:12)
[2017-06-30] MEDS ORDERED: SODIUM CHLORIDE 0.9% 1,000 ML IV SCH (15:15)
[2017-06-30] MEDS: IPRATROPIUM-ALBUTEROL 3 ML NEB INHALATION SCH ×3 (15:19→23:44)
[2017-06-30 15:22] LABS: Appearance,Urine Clear (Clear); Bilirubin,Urine Negative (Negative); Glucose,Urine (UA) Negative (Negative); Ketones,Urine 3+ (Negative); Leukocyte Esterase,Urine Negative (Negative); Nitrite,Urine Negative (Negative); Protein,Urine Negative (Negative); Specific Gravity,Urine 1.004 (1.001-1.035); UA Billing (MACRO vs. MICRO) CHEM; Urobilinogen,Urine <2.0 mg/dL (<2.0)
[2017-06-30 15:24] LABS: Basophils % (A) 0 %; CH 30.1; CHCM 34.1; Eosinophils # (A) 0.4 k/uL (0-0.7); Eosinophils % (A) 3 %; HCT 39.2 % (34.0-46.0); HDW 2.65; HGB 12.8 gm/dL (11.4-16.0); Luc # (Auto) 0.06; Luc % (Auto) 1; Lymphocytes # (A) 0.9 k/uL (1.0-4.8); Lymphocytes % (A) 7 %; MCH 28.9 pg (25.0-35.0); MCHC 32.6 g/dL (31.0-37.0); MCV 88.5 fL (80.0-100.0); Monocytes # (A) 0.3 k/uL (0-1.0); Monocytes % (A) 2 %; Neutrophils # (A) 10.3 k/uL (1.3-7.7); Neutrophils % (A) 87 %; RBC 4.43 m/uL (3.80-5.40); RDW 14.9 % (11.5-15.5); WBC 11.9 k/uL (3.8-10.6); WBC (Perox) 12.68
[2017-06-30 15:31] LABS: ALT 33 U/L (9-52); AST 22 U/L (14-36); Alkaline Phosphatase 96 U/L (38-126); Anion Gap 13 mmol/L; Blood Urea Nitrogen 5 mg/dL (7-17); Calcium 9.2 mg/dL (8.4-10.2); Carbon Dioxide 19 mmol/L (22-30); Chloride 106 mmol/L (98-107); Glucose 85 mg/dL (74-99); Non-African American GFR(MDRD) >60 (>60 ml/min/1.73 sqM); Potassium 4.1 mmol/L (3.5-5.1); Sodium 138 mmol/L (137-145); Total Bilirubin 0.5 mg/dL (0.2-1.3); Total Protein 7.4 g/dL (6.3-8.2)
[2017-06-30] MEDS ORDERED: LEVALBUTEROL NEB 1.25 MG/3 ML AMP INHALATION SCH (20:00)
[2017-06-30 20:07] VITALS: BMI 32.1
[2017-07-01] MEDS: IPRATROPIUM-ALBUTEROL 3 ML NEB INHALATION SCH ×6 (03:43→23:49)
--- NOTE | 2017-07-01 18:51 | HP ---
HISTORY AND PHYSICAL CHIEF COMPLAINT: Difficulty breathing. HISTORY OF PRESENT ILLNESS: The patient is a 27-year-old white male who has has chronic persistent asthma. She is awake with her asthma 5 or 6 times a week. She is on a fairly good program but still has continuous trouble day and night. She came to the emergency room where she could not be reversed. REVIEW OF SYSTEMS: She denies any headaches, chest pain, cough, hemoptysis, sputum production, etc. PAST MEDICAL HISTORY, FAMILY HISTORY AND PERSONAL AND SOCIAL HISTORIES: Otherwise unremarkable and noncontributory but she does have a history of hypertension. ALLERGIC: None. MEDICATIONS: Pulmicort 180 two puffs twice a day, Ventolin HFA 2 puffs q.i.d. p.r.n., albuterol nebulizer q.i.d. p.r.n., Qvar 80 mcg 2 puffs b.i.d. She has had 4 pregnancies and 3 deliveries. She does not smoke any longer. PHYSICAL EXAM: Blood pressure 130/80 with a pulse of 94, respirations of 46 and she is afebrile. She appears slightly pale and not definitely short of breath. She had audible wheezing. Head ears eyes, nose, mouth and throat were normal. There are no neck masses. Chest demonstrated decreased breath sounds with prolonged expiratory phase. Anterior and inspiratory and expiratory wheezing. There are rales scattered throughout. Cardiac exam is normal, tachycardia. The abdomen is soft nontender. Extremities normal. Neurologic is intact. She is admitted to the hospital. DIAGNOSIS: Status asthmaticus with chronic persistent asthma. PLAN: 1. Bed rest. 2. IV fluids. 3. IV and inhaled steroids. 4. Possible candidate for Xolair after hospitalization. MMODL / IJN: [id number] /
--- NOTE | 2017-07-01 18:54 | PN ---
PROGRESS NOTE CHIEF COMPLAINT: Status asthmaticus and chronic persistent asthma. HISTORY OF PRESENT ILLNESS: This lady's a little bit better but still tight and wheezy. She has had no fever, chills, or chest pain,. PHYSICAL EXAM: He still has inspiratory and expiratory wheezing. No rales, rhonchi. Cardiac exam is normal. IMPRESSION: 1. Status asthmaticus and reactive airway disease. 2. Chronic persistent asthma. PLAN: Continue on current program. She is a candidate for [facility]. MMODL / IJN: [id number] /
[2017-07-01] MEDS ORDERED: MONTELUKAST 10 MG TAB PO SCH (21:00)
[2017-07-01] MEDS: ACETAMINOPHEN TAB 325 MG TAB PO PRN (22:28)
[2017-07-02] MEDS: IPRATROPIUM-ALBUTEROL 3 ML NEB INHALATION SCH ×3 (04:16→12:25)
[2017-07-02] MEDS: ACETAMINOPHEN TAB 325 MG TAB PO PRN (06:34)
[2017-07-02 12:44] VITALS: BP 110/63; PULSE 95; RESP 16; TEMP 98.4
--- NOTE | 2017-07-02 16:10 | DS ---
DISCHARGE SUMMARY CHIEF COMPLAINT: Status asthmaticus. HISTORY OF PRESENT ILLNESS AND PHYSICAL EXAM: Details of this lady's history and physical can be found in the initial workup. LABORATORY STUDIES: While she was in the hospital she had laboratory studies, the details of which can be found in the laboratory section of the chart. COURSE IN THE HOSPITAL: After admission, she was placed on bed rest and started on intravenous fluids and updrafts. She was improved and was up and about and feeling that she could be discharged on the . She will go home on her usual activity and diet and medications and she will continue on her updrafts and MDIs. She has felt that QVAR has not helped her, so we will see her in the office in a day or 2 and consider a different steroid inhaler. FINAL DIAGNOSES: 1. Status asthmaticus. 2. Intrauterine . OPERATIONS: None. CONSULTATIONS: None. She is improved. JOLYNN / FLYNN: [id number] /
== END 2017-07-02 12:50 | disposition home or self-care (01) | DRG 781 ==
LOC: EC 12:29 → 6PED 14:57
PROVIDERS: ADMIT Family Medicine; ATTEND Family Medicine
DX: O99.511 Diseases of the respiratory system complicating pregnancy, first trimester (principal); J45.902 Unspecified asthma with status asthmaticus; O34.211 Maternal care for low transverse scar from previous cesarean delivery; Z79.51 Long term (current) use of inhaled steroids; Z87.891 Personal history of nicotine dependence; Z3A.12 12 weeks gestation of pregnancy; Z82.5 Family history of asthma and other chronic lower respiratory diseases
CPT/HCPCS: 71020; 80053; 81003; 85025; 87040; 93005; 94640; 94760; 96365; 96366; 96367; 96375; 99285

== ENCOUNTER 2017-08-22 18:27 | Emergency (ER) | payer OTHER ==
[2017-08-22] MEDS ORDERED: IPRATROPIUM-ALBUTEROL 3 ML NEB INHALATION STA (18:36)
[2017-08-22] MEDS ORDERED: ALBUTEROL NEBULIZED 2.5 MG/3 ML INHALATION STA (18:40)
[2017-08-22] MEDS ORDERED: IPRATROPIUM 0.5 MG/2.5 ML NEBU INHALATION STA (18:40)
[2017-08-22] MEDS ORDERED: methylPREDNISolone SOD SUCCI 125 MG/2 ML VIAL IV STA (18:40)
--- NOTE | 2017-08-22 18:46 | ED ---
General Adult HPI - General Chief complaint: Shortness of Breath Stated complaint: Diff Breathing Time Seen by Provider: 08/22/17 18:35 Source: patient, RN notes reviewed Mode of arrival: ambulatory Limitations: no limitations - History of Present Illness Initial comments: 27 yo female presents to the ER with cc of shortness of breath. Patient is 22 weeks . She suffers from asthma. She's been doing with asthma exacerbations and has been at home after being placed for 1 week for about one month. She was getting better they took her off her steroids she was doing left breathing treatments and then her asthma has flared up. She states that now she is feeling very short of breath she's having dizzy episodes at home. Patient states that her breathing treatments at home were not helping. She states that she just feels like she's having very hard time breathing so she thought that she should be seen.Patient denies any recent fever, chills, chest pain, back pain, abdominal pain, nausea vomiting, numbness or tingling, dysuria or hematuria, constipation or diarrhea, headaches or visual changes, or any other current symptoms. - Related Data Home Medications Medication Instructions Recorded Confirmed Albuterol Sulfate [Ventolin HFA] 2 puff INHALATION RT-QID PRN 04/12/17 08/22/17 Cetirizine HCl 10 mg PO HS 06/07/17 08/22/17 Albuterol Nebulized [Ventolin 2.5 mg INHALATION RT-QID 06/30/17 08/22/17 Nebulized] Ipratropium Nebulized [Atrovent 0.5 mg INHALATION RT-QID 06/30/17 08/22/17 Nebulized] Budesonide [Pulmicort Flexhaler] 2 puff INHALATION RT-BID 08/22/17 08/22/17 Pnv No.95/Ferrous Fum/Folic AC 1 tab PO HS 08/22/17 08/22/17 [ Multivitamin Tablet] Previous Rx's Medication Instructions Recorded Ipratropium-Albuterol Nebulize 3 ml INHALATION RT-QID #120 neb 07/10/17 [Duoneb 0.5 mg-3 mg/3 ml Soln] Montelukast [Singulair] 10 mg PO HS #30 tab 07/10/17 predniSONE 20 mg PO DAILY #10 tab 07/10/17 predniSONE 50 mg PO DAILY #5 tab 08/22/17 Allergies Allergy/AdvReac Type Severity Reaction Status Date / Time bee venom protein (honey bee) AdvReac Anaphylaxis Verified 08/22/17 19:39 Review of Systems ROS Statement: Those systems with pertinent positive or pertinent negative responses have been documented in the HPI. ROS Other: All systems not noted in ROS Statement are negative. Past Medical History Past Medical History: Asthma Additional Past Medical History / Comment(s): BRONCHITIS History of Any Multi-Drug Resistant Organisms: None Reported Past Surgical History: Section Additional Past Surgical History / Comment(s): c-sect x 2 Past Anesthesia/Blood Transfusion Reactions: No Reported Reaction Past Psychological History: No Psychological Hx Reported Smoking Status: Former smoker Past Alcohol Use History: None Reported Past Drug Use History: None Reported - Past Family History Mother Family Medical History: Asthma, Thyroid Disorder Additional Family Medical History / Comment(s): cholecystitis Father Family Medical History: Unable to Obtain General Exam - General Exam Comments Initial Comments: General: The patient is awake and alert, in no distress, and does not appear acutely ill. Eye: Pupils are equal, round and reactive to light, extra-ocular movements are intact; there is normal conjunctiva bilaterally. No signs of icterus. Ears, nose, mouth and throat: There are moist mucous membranes. Neck: The neck is supple, there is no tenderness. Cardiovascular: There is a regular rate and rhythm. No murmur, rub or gallop is appreciated. Respiratory: Patient's lung sounds are diminished with diffuse wheeze. Patient does appear to have labored breathing. Gastrointestinal: Soft, non-distended, non-tender abdomen without masses or organomegaly noted. There is no rebound or guarding present. No CVA tenderness. Bowel sounds are unremarkable. Back: There is no tenderness to palpation in the midline. There is no obvious deformity. No rashes noted. Musculoskeletal: Normal ROM, no tenderness, There is no pedal edema. There is no calf tenderness or swelling. Sensation intact. Pulses equal bilaterally 2+. Neurological: CN II-XII intact, There are no obvious motor or sensory deficits. Coordination appears grossly intact. Speech is normal. Skin: Skin is warm and dry and no rashes or lesions are noted. Psychiatric: Cooperative, appropriate mood & affect, normal judgment. Limitations: no limitations Course Vital Signs 08/22/17 08/22/17 08/22/17 18:29 18:44 19:08 Temperature 98.8 F Pulse Rate 129 H 130 H 130 H Respiratory 28 H Rate Blood Pressure 135/72 O2 Sat by Pulse 95 Oximetry 08/22/17 08/22/17 19:11 19:17 Temperature 98.3 F Pulse Rate 144 H 121 H Respiratory 22 22 Rate Blood Pressure 141/76 O2 Sat by Pulse 97 99 Oximetry Medical Decision Making - Medical Decision Making 27-year-old female presents for asthma exacerbation. At this time the patient was reassessed and is feeling much better. Patient is no longer any distress and wheezing has cleared. This time did discuss that we could contact her admitting physician to look into admission however she states she symmetrically home. We will put her on steroids for home. We discussed the risk of these in . This and the patient is negative this plan all questions have been answered. She'll be discharged. - Lab Data Result diagrams: 08/22/17 19:15 08/22/17 19:15 Lab Results 08/22/17 08/22/17 08/22/17 Range/Units 19:15 19:15 19:15 WBC 10.8 H (3.8-10.6) k/uL RBC 3.96 (3.80-5.40) m/uL Hgb 11.6 (11.4-16.0) gm/dL Hct 34.4 (34.0-46.0) % MCV 87.0 (80.0-100.0) fL MCH 29.4 (25.0-35.0) pg MCHC 33.8 (31.0-37.0) g/dL RDW 14.1 (11.5-15.5) % Plt Count 197 (150-450) k/uL Neutrophils % 76 % Lymphocytes % 15 % Monocytes % 3 % Eosinophils % 5 % Basophils % 0 % Neutrophils # 8.2 H (1.3-7.7) k/uL Lymphocytes # 1.6 (1.0-4.8) k/uL Monocytes # 0.4 (0-1.0) k/uL Eosinophils # 0.5 (0-0.7) k/uL Basophils # 0.0 (0-0.2) k/uL Sodium 137 (137-145) mmol/L Potassium 4.0 (3.5-5.1) mmol/L Chloride 107 (98-107) mmol/L Carbon Dioxide 20 L (22-30) mmol/L Anion Gap 10 mmol/L BUN 8 (7-17) mg/dL Creatinine 0.50 L (0.52-1.04) mg/dL Est GFR (MDRD) Af Amer >60 (>60 ml/min/1.73 sqM) Est GFR (MDRD) Non-Af >60 (>60 ml/min/1.73 sqM) Glucose 107 H (74-99) mg/dL Calcium 9.1 (8.4-10.2) mg/dL Total Bilirubin 0.3 (0.2-1.3) mg/dL AST 18 (14-36) U/L ALT 25 (9-52) U/L Alkaline Phosphatase 59 (38-126) U/L Total Protein 6.3 (6.3-8.2) g/dL Albumin 3.4 L (3.5-5.0) g/dL Urine Color Yellow Urine Appearance Clear (Clear) Urine pH 6.0 (5.0-8.0) Ur Specific [place] 1.013 (1.001-1.035) Urine Protein Negative (Negative) Urine Glucose (UA) Negative (Negative) Urine Ketones Negative (Negative) Urine Blood Negative (Negative) Urine Nitrite Negative (Negative) Urine Bilirubin Negative (Negative) Urine Urobilinogen <2.0 (<2.0) mg/dL Ur Leukocyte Esterase Negative (Negative) Disposition Clinical Impression: Asthma with exacerbation Disposition: HOME SELF-CARE Condition: Stable Instructions: Asthma (ED) Additional Instructions: Please use medication as discussed. Please follow up with family doctor if symptoms have not improved over the next two days. Please return to the emergency room if your symptoms increase or worsen or for any other concerns. Prescriptions: predniSONE 50 mg PO DAILY #5 tab Referrals: Chace Meng MD [Primary Care Provider] - 1-2 days Time of Disposition: 20:29
[2017-08-22 19:32] LABS: Basophils % (A) 0 %; CH 29.4; Eosinophils # (A) 0.5 k/uL (0-0.7); Eosinophils % (A) 5 %; HCT 34.4 % (34.0-46.0); HDW 2.75; HGB 11.6 gm/dL (11.4-16.0); Luc % (Auto) 1; Lymphocytes # (A) 1.6 k/uL (1.0-4.8); Lymphocytes % (A) 15 %; MCH 29.4 pg (25.0-35.0); MCHC 33.8 g/dL (31.0-37.0); Mean Platelet Volume 8.1; Monocytes # (A) 0.4 k/uL (0-1.0); Monocytes % (A) 3 %; Neutrophils # (A) 8.2 k/uL (1.3-7.7); Neutrophils % (A) 76 %; RBC 3.96 m/uL (3.80-5.40); RDW 14.1 % (11.5-15.5); WBC 10.8 k/uL (3.8-10.6); WBC (Perox) 10.39
[2017-08-22 19:46] LABS: ALT 25 U/L (9-52); AST 18 U/L (14-36); Alkaline Phosphatase 59 U/L (38-126); Anion Gap 10 mmol/L; Blood Urea Nitrogen 8 mg/dL (7-17); Calcium 9.1 mg/dL (8.4-10.2); Carbon Dioxide 20 mmol/L (22-30); Chloride 107 mmol/L (98-107); Glucose 107 mg/dL (74-99); Non-African American GFR(MDRD) >60 (>60 ml/min/1.73 sqM); Sodium 137 mmol/L (137-145); Total Bilirubin 0.3 mg/dL (0.2-1.3); Total Protein 6.3 g/dL (6.3-8.2)
[2017-08-22 19:48] LABS: Appearance,Urine Clear (Clear); Bilirubin,Urine Negative (Negative); Glucose,Urine (UA) Negative (Negative); Ketones,Urine Negative (Negative); Leukocyte Esterase,Urine Negative (Negative); Nitrite,Urine Negative (Negative); Protein,Urine Negative (Negative); Specific Gravity,Urine 1.013 (1.001-1.035); UA Billing (MACRO vs. MICRO) CHEM; Urobilinogen,Urine <2.0 mg/dL (<2.0)
[2017-08-22 20:30] VITALS: BP 132/83; PULSE 133; RESP 18; TEMP 97.6
== END 2017-08-22 20:38 | disposition home or self-care (01) ==
LOC: EC 18:27
DX: O99.512 Diseases of the respiratory system complicating pregnancy, second trimester (principal); J45.901 Unspecified asthma with (acute) exacerbation; Z87.891 Personal history of nicotine dependence; Z79.51 Long term (current) use of inhaled steroids; Z79.899 Other long term (current) drug therapy; Z91.030 Bee allergy status; Z3A.22 22 weeks gestation of pregnancy
CPT/HCPCS: 36415; 94640; 80053; 85025; 81003; 87086; 99285; 96374; J2930

== ENCOUNTER 2017-09-22 18:36 | Emergency (ER) | payer OTHER ==
[2017-09-22] MEDS ORDERED: IPRATROPIUM 0.5 MG/2.5 ML NEBU INHALATION STA (19:18)
[2017-09-22] MEDS ORDERED: ALBUTEROL NEBULIZED 2.5 MG/3 ML INHALATION STA (19:18)
--- NOTE | 2017-09-22 19:23 | ED ---
General Adult HPI - General Chief complaint: Shortness of Breath Stated complaint: Sob Time Seen by Provider: 09/22/17 19:13 Source: patient, RN notes reviewed Mode of arrival: ambulatory Limitations: no limitations - History of Present Illness Initial comments: 27 yo female presents to the ER with cc of SOB. Patient has a long history of asthma and has been having this asthma throughout this . She was seen here last month for this and she received and treatment and steroids and it cleared up. She states that it seems to be flaring up again at this time. SHe was concerned because her breathing just does not seem to be getting better. THere has been no nausea or vomiting. She states she did cough hard once causing left sided rib pain that radiates into the abdomen. She is and has already been cleared by mother baby. She states she tried her inhaler and treatments at home without improvement. THey were concerned due to continued symptoms and SOB so she thought jos we could help her. Patient denies any recent fever, chills, chest pain, back pain, abdominal pain, nausea vomiting, numbness or tingling, dysuria or hematuria, constipation or diarrhea, headaches or visual changes, or any other current symptoms. - Related Data Home Medications Medication Instructions Recorded Confirmed Albuterol Sulfate [Ventolin HFA] 2 puff INHALATION RT-QID PRN 04/12/17 09/22/17 Cetirizine HCl 10 mg PO HS 06/07/17 09/22/17 Budesonide [Pulmicort Flexhaler] 2 puff INHALATION RT-BID 08/22/17 09/22/17 Pnv No.95/Ferrous Fum/Folic AC 1 tab PO HS 08/22/17 09/22/17 [ Multivitamin Tablet] Previous Rx's Medication Instructions Recorded Ipratropium-Albuterol Nebulize 3 ml INHALATION RT-QID #120 neb 07/10/17 [Duoneb 0.5 mg-3 mg/3 ml Soln] Montelukast [Singulair] 10 mg PO HS #30 tab 07/10/17 Albuterol Nebulized [Ventolin 2.5 mg INHALATION Q4H #20 nebu 09/22/17 Nebulized] predniSONE 50 mg PO DAILY #5 tab 09/22/17 Allergies Allergy/AdvReac Type Severity Reaction Status Date / Time bee venom protein (honey bee) AdvReac Anaphylaxis Verified 09/22/17 19:15 Review of Systems ROS Statement: Those systems with pertinent positive or pertinent negative responses have been documented in the HPI. ROS Other: All systems not noted in ROS Statement are negative. Past Medical History Past Medical History: Asthma Additional Past Medical History / Comment(s): BRONCHITIS History of Any Multi-Drug Resistant Organisms: None Reported Past Surgical History: Section Additional Past Surgical History / Comment(s): c-sect x 2 Past Anesthesia/Blood Transfusion Reactions: No Reported Reaction Past Psychological History: No Psychological Hx Reported Smoking Status: Former smoker Past Alcohol Use History: None Reported Past Drug Use History: None Reported - Past Family History Mother Family Medical History: Asthma, Thyroid Disorder Additional Family Medical History / Comment(s): cholecystitis Father Family Medical History: Unable to Obtain General Exam - General Exam Comments Initial Comments: General: The patient is awake and alert, in no distress, and does not appear acutely ill. Eye: Pupils are equal, round and reactive to light. Ears, nose, mouth and throat: There are moist mucous membranes. Neck: The neck is supple, there is no tenderness. Cardiovascular: There is a regular rate and rhythm. No murmur, rub or gallop is appreciated. Respiratory: Lungs are clear to auscultation, respirations are non-labored, breath sounds are equal. Diffuse inspiratory and expiratory wheeze, no stridor , rales, or rhonchi. Gastrointestinal: Soft, non-distended, non-tender abdomen without masses or organomegaly noted. There is no rebound or guarding present. No CVA tenderness. Bowel sounds are unremarkable. Back: There is no tenderness to palpation in the midline. There is no obvious deformity. No rashes noted. Musculoskeletal: Normal ROM, no tenderness, There is no pedal edema. There is no calf tenderness or swelling. Sensation intact. Pulses equal bilaterally 2+. Neurological: CN II-XII intact, There are no obvious motor or sensory deficits. Coordination appears grossly intact. Speech is normal. Skin: Skin is warm and dry and no rashes or lesions are noted. Psychiatric: Cooperative, appropriate mood & affect, normal judgment. Limitations: no limitations Course Vital Signs 09/22/17 09/22/17 09/22/17 19:00 19:29 20:01 Temperature 99.0 F Pulse Rate 126 H 118 H 118 H Respiratory 24 Rate Blood Pressure 131/58 O2 Sat by Pulse 95 Oximetry 09/22/17 09/22/17 09/22/17 21:02 21:28 21:43 Temperature Pulse Rate 122 H 120 H 120 H Respiratory 24 Rate Blood Pressure 141/65 O2 Sat by Pulse 95 Oximetry 09/22/17 22:16 Temperature Pulse Rate 124 H Respiratory Rate Blood Pressure O2 Sat by Pulse Oximetry Medical Decision Making - Medical Decision Making 27-year-old female presents for shortness of breath. This patient has had 2 breathing treatments and she is about 94 and room air during my examination. At this time she is feeling better and she was given a dose of time.. We did discuss that we would like to keep her for continued breathing treatments and steroids. She states that she does not want states she's feeling much better she has machine at home and the treatment that she can do at home. She states she just would like her prescription for steroids. We did discuss this could worsen and that she requires hospitalization. We did discuss that if anything worsens she wakes up with any shortness of breath that she needs to return immediately. The patient does agree with this plan and all of her questions have been answered. She will leave even though we have requested her to be admitted. We will respect her wishes. At this time patient will be discharged with prescription for steroids. - Lab Data Result diagrams: 09/22/17 20:27 09/22/17 20:27 Lab Results 09/22/17 09/22/17 Range/Units 20:27 20:27 WBC 9.1 (3.8-10.6) k/uL RBC 4.00 (3.80-5.40) m/uL Hgb 11.7 (11.4-16.0) gm/dL Hct 35.8 (34.0-46.0) % MCV 89.5 (80.0-100.0) fL MCH 29.2 (25.0-35.0) pg MCHC 32.6 (31.0-37.0) g/dL RDW 15.6 H (11.5-15.5) % Plt Count 224 (150-450) k/uL Neutrophils % 76 % Lymphocytes % 15 % Monocytes % 3 % Eosinophils % 6 % Basophils % 0 % Neutrophils # 6.9 (1.3-7.7) k/uL Lymphocytes # 1.3 (1.0-4.8) k/uL Monocytes # 0.3 (0-1.0) k/uL Eosinophils # 0.5 (0-0.7) k/uL Basophils # 0.0 (0-0.2) k/uL Sodium 139 (137-145) mmol/L Potassium 3.7 (3.5-5.1) mmol/L Chloride 107 (98-107) mmol/L Carbon Dioxide 24 (22-30) mmol/L Anion Gap 8 mmol/L BUN 6 L (7-17) mg/dL Creatinine 0.50 L (0.52-1.04) mg/dL Est GFR (MDRD) Af Amer >60 (>60 ml/min/1.73 sqM) Est GFR (MDRD) Non-Af >60 (>60 ml/min/1.73 sqM) Glucose 110 H (74-99) mg/dL Calcium 8.9 (8.4-10.2) mg/dL Total Bilirubin 0.2 (0.2-1.3) mg/dL AST 18 (14-36) U/L ALT 28 (9-52) U/L Alkaline Phosphatase 72 (38-126) U/L Total Protein 6.4 (6.3-8.2) g/dL Albumin 3.5 (3.5-5.0) g/dL Disposition Clinical Impression: Asthma with exacerbation Disposition: HOME SELF-CARE Condition: Stable Instructions: Asthma (ED) Additional Instructions: Please use medication as discussed. Please follow up with family doctor if symptoms have not improved over the next two days. Please return to the emergency room if your symptoms increase or worsen or for any other concerns. Prescriptions: Albuterol Nebulized [Ventolin Nebulized] 2.5 mg INHALATION Q4H #20 nebu predniSONE 50 mg PO DAILY #5 tab Referrals: Chace Meng MD [Primary Care Provider] - 1-2 days Time of Disposition: 22:34
[2017-09-22] MEDS ORDERED: methylPREDNISolone SOD SUCCI 125 MG/2 ML VIAL IV STA (20:15)
[2017-09-22 20:34] LABS: Basophils % (A) 0 %; CH 29.2; CHCM 32.9; Eosinophils # (A) 0.5 k/uL (0-0.7); Eosinophils % (A) 6 %; HCT 35.8 % (34.0-46.0); HDW 2.74; HGB 11.7 gm/dL (11.4-16.0); Luc # (Auto) 0.05; Luc % (Auto) 1; Lymphocytes # (A) 1.3 k/uL (1.0-4.8); Lymphocytes % (A) 15 %; MCH 29.2 pg (25.0-35.0); MCHC 32.6 g/dL (31.0-37.0); MCV 89.5 fL (80.0-100.0); Mean Platelet Volume 8.5; Monocytes # (A) 0.3 k/uL (0-1.0); Monocytes % (A) 3 %; Neutrophils # (A) 6.9 k/uL (1.3-7.7); Neutrophils % (A) 76 %; RDW 15.6 % (11.5-15.5); WBC 9.1 k/uL (3.8-10.6); WBC (Perox) 9.67
[2017-09-22 20:48] LABS: ALT 28 U/L (9-52); AST 18 U/L (14-36); Alkaline Phosphatase 72 U/L (38-126); Anion Gap 8 mmol/L; Blood Urea Nitrogen 6 mg/dL (7-17); Calcium 8.9 mg/dL (8.4-10.2); Carbon Dioxide 24 mmol/L (22-30); Chloride 107 mmol/L (98-107); Glucose 110 mg/dL (74-99); Non-African American GFR(MDRD) >60 (>60 ml/min/1.73 sqM); Potassium 3.7 mmol/L (3.5-5.1); Sodium 139 mmol/L (137-145); Total Bilirubin 0.2 mg/dL (0.2-1.3); Total Protein 6.4 g/dL (6.3-8.2)
[2017-09-22] MEDS ORDERED: ALBUTEROL NEBULIZED 7.5 MG, IPRATROPIUM NEBULIZED 0.5 MG, SODIUM CHLORIDE 0.9% NEBULIZ ... INHALATION ONE ×3 (21:07)
[2017-09-22 22:45] VITALS: BP 137/87; PULSE 125; RESP 20; TEMP 98.6
== END 2017-09-22 22:40 | disposition home or self-care (01) ==
LOC: EC 18:36
DX: O99.512 Diseases of the respiratory system complicating pregnancy, second trimester (principal); J45.901 Unspecified asthma with (acute) exacerbation; Z3A.27 27 weeks gestation of pregnancy; Z87.891 Personal history of nicotine dependence; Z79.51 Long term (current) use of inhaled steroids; Z79.899 Other long term (current) drug therapy; Z91.030 Bee allergy status
CPT/HCPCS: 36415; 94640; 94644; 80053; 85025; 99285; 96374; J2930

== ENCOUNTER 2017-11-09 16:58 | Outpatient (CLI) | payer OTHER ==
[2017-11-09 17:19] LABS: Glucose,Whole Blood 83 mg/dL (75-99)
[2017-11-09 17:43] VITALS: BP 138/69; PULSE 104; RESP 18; TEMP 98.7
--- NOTE | 2017-11-10 06:44 | P.MSEPDOC ---
Presenting Problems - Arrival Data Date of Arrival on Unit: 11/09/17 Time of Arrival on Unit: 17:00 Mode of Transport: Ambulatory - Complaint OB-Reason for Admission/Chief Complaint: Rule Out SROM Comment: leaking fluid all day, + intercourse this morning, NST in office earlier today Medical History - Information : 4 Para: 3 Term: 3 : 0 Abortions: Spontaneous or Elective: 0 Number of Living Children: 3 - Gestational Age Gestational Age by AILIN (wks/days): 33 Weeks and 4 Days - History Complications: GDM, Prior Comment: + asthma on steroids Review of Systems - Review of Systems Constitutional: No problems Breast: No problems ENT: No problems Cardiovascular: No problems Respiratory: No problems Gastrointestinal: No problems Genitourinary: No problems Musculoskeletal: No problems Neurological: No problems Skin: No problems Vital Signs - Temperature Temperature: 98.7 F Temperature Source: Oral - Pulse Right Sitting Brachial Pulse Rate: 104 Pulse Assessment Method: Automatic Cuff - Respirations Respiratory Rate: 18 Oxygen Delivery Method: Room Air O2 Sat by Pulse Oximetry: 95 - Blood Pressure Right Arm Sitting Blood Pressure: 138/69 Blood Pressure Mean: 92 Blood Pressure Source: Automatic Cuff Medical Screen Scoring (Pre) - Cervical Exam Dilation: 0 cm = 0 Membranes: Intact - Uterine Contractions Frequency: > 5 minutes apart = 1 Duration: N/A Intensity: N/A - Maternal Vital Signs Maternal Temperature: N/A Maternal Blood Pressure: N/A Signs of Preeclampsia: N/A Maternal Respirations: N/A - Pain Assessment Pain Scale Used: Numeric (1 - 10) Pain Intensity: 3 Pain Description: Cramping Pain Frequency: Intermittent Pain Behavior: None Exhibited - Maternal Trauma Maternal Trauma: N/A - Assessment Baseline FHR: 135 Heart Rate - NICHD Category: Category I (Normal) = 0 NST: Reactive Position: N/A Station: N/A - Total Score Total Score (Pre): 1 - Level of Risk Level of Risk: Low (0-5) Physician Notification (Pre) - Physician Notified Physician Notified Date: 11/09/17 Physician Notified Time: 17:42 Physician/Practitioner Notifed:: Dr Lopez Spoke With: Dr Lopez New Order Received: Yes - Notification Comment Comment: amnisure neg, ok to discharge home after reactive NST. Disposition - Disposition OB Disposition: Discharge to home Discharge Date: 11/09/17 Discharge Time: 17:42 I agree with the RN Medical Screening Exam: Yes Risk & Benefit of care provided described in d/c instruction: Yes Diagnosis: FALSE LABOR AT OR AFTER 37 COMPLETED WEEKS OF GESTATION
== END 2017-11-09 17:52 | disposition home or self-care (01) ==
LOC: FBPOP 16:58
PROVIDERS: ATTEND Obstetrics & Gynecology
DX: O47.1 False labor at or after 37 completed weeks of gestation (principal); Z3A.33 33 weeks gestation of pregnancy
CPT/HCPCS: 59025; 84112; G0463; 99213

== ENCOUNTER 2017-11-29 19:20 | Outpatient (CLI) | payer OTHER ==
[2017-11-29 21:08] VITALS: BP 129/76; PULSE 114; RESP 16; TEMP 97.8
--- NOTE | 2017-11-30 06:24 | P.MSEPDOC ---
Presenting Problems - Arrival Data Date of Arrival on Unit: 11/29/17 Time of Arrival on Unit: 19:24 Mode of Transport: Ambulatory - Complaint OB-Reason for Admission/Chief Complaint: Possible Onset of Labor Comment: 5 contx in the last hour, pelvic pressure and lower back pain. Medical History - Information : 4 Para: 3 Term: 3 : 0 Abortions: Spontaneous or Elective: 0 Number of Living Children: 3 - Gestational Age Gestational Age by AILIN (wks/days): 36 Weeks and 3 Days - History Complications: GDM, Prior Review of Systems - Review of Systems Constitutional: No problems Breast: No problems ENT: No problems Cardiovascular: No problems Respiratory: No problems Gastrointestinal: No problems Genitourinary: No problems Musculoskeletal: No problems Neurological: No problems Skin: No problems Vital Signs - Temperature Temperature: 97.8 F Temperature Source: Temporal Artery Scan - Pulse Right Sitting Brachial Pulse Rate: 114 Pulse Assessment Method: Automatic Cuff - Respirations Respiratory Rate: 16 Oxygen Delivery Method: Room Air O2 Sat by Pulse Oximetry: 97 - Blood Pressure Right Arm Sitting Blood Pressure: 129/76 Blood Pressure Mean: 93 Blood Pressure Source: Automatic Cuff Medical Screen Scoring (Pre) - Cervical Exam Dilation: 0 cm = 0 Membranes: Intact - Uterine Contractions Frequency: > 5 minutes apart = 1 Duration: > 40 seconds = 2 - Pain Assessment Pain Location and Character: Lower, Back Pain Scale Used: Numeric (1 - 10) Pain Intensity: 10 Pain Management Goal: 4 Pain Description: Cramping Pain Radiation Location: n/a Pain Frequency: Intermittent Pain Duration: 1 Pain Duration Units: Hours Pain Behavior: Vocalization Pain Aggravating Factors: Activity Non-Pharmacological Interventions: Position/Reposition - Assessment Baseline FHR: 135 Heart Rate - NICHD Category: Category I (Normal) = 0 NST: Reactive - Total Score Total Score (Pre): 3 - Level of Risk Level of Risk: Low (0-5) Physician Notification (Pre) - Physician Notified Physician Notified Date: 11/29/17 Physician Notified Time: 20:42 Physician/Practitioner Notifed:: edie Spoke With: edie New Order Received: Yes - Notification Comment Comment: discharge home. f/u at scheduled apt with jamir tomorrow. Disposition - Disposition OB Disposition: Discharge to home Discharge Date: 11/29/17 Discharge Time: 20:50 I agree with the RN Medical Screening Exam: Yes Risk & Benefit of care provided described in d/c instruction: Yes Diagnosis: FALSE LABOR AT OR AFTER 37 COMPLETED WEEKS OF GESTATION
== END 2017-11-29 20:50 | disposition home or self-care (01) ==
LOC: FBPOP 19:20
PROVIDERS: ATTEND Obstetrics & Gynecology
DX: O47.03 False labor before 37 completed weeks of gestation, third trimester (principal); Z3A.36 36 weeks gestation of pregnancy
CPT/HCPCS: 59025; G0463; 99213

== ENCOUNTER 2017-12-17 05:52 | Inpatient (IN) | payer OTHER ==
[2017-12-15 12:11] VITALS: BMI 40.0
--- NOTE | 2017-12-16 20:34 | P.HPOB ---
History of Present Illness H&P Date: 12/16/17 Chief Complaint: Scheduled repeat section with tubal This is a 27-year-old female 5 para 3, with an estimated date of confinement of 12/24/2017, estimated gestational age of 39-0/7 weeks, who presents for scheduled repeat section with bilateral partial salpingectomy for family planning. She admits to good movement. She has been feeling frequent irregular contractions. Her has been complicated by gestational diabetes on insulin. She also has history of severe asthma and has been treated with steroids throughout her . labs: GC/Chlamydia-negative HIV-nonreactive Rubella-immune Syphilis antibody-nonreactive Random glucose-89 Hepatitis B surface antigen-negative Hemoglobin-12.5 Blood type-O- Antibody screen-positive due to RhoGAM, antibody screen negative at 28 weeks and RhoGAM was given Obstetrical ultrasound-normal anatomy One hour Glucola-160 Group B streptococcus-negative Obstetrical history: . History of 3 sections and 1 miscarriage. Gynecologic history: No history of sexual transmitted diseases. Social history: She is engaged and currently not working. Review of Systems Constitutional: Denies chills, Denies fever Eyes: denies blurred vision, denies pain Ears, nose, mouth and throat: Denies headache, Denies sore throat Cardiovascular: Denies chest pain, Denies shortness of breath Respiratory: Denies cough Gastrointestinal: Reports abdominal pain (Irregular contractions) Genitourinary: Reports pelvic pain, Reports Musculoskeletal: Reports low back pain Integumentary: Reports as per HPI Neurological: Denies numbness, Denies weakness Psychiatric: Denies anxiety, Denies depression Past Medical History Past Medical History: Asthma, Diabetes Mellitus Additional Past Medical History / Comment(s): BRONCHITIS. GESTATIONAL DIABETES History of Any Multi-Drug Resistant Organisms: None Reported Past Surgical History: Section Additional Past Surgical History / Comment(s): c-sect x 2 Past Anesthesia/Blood Transfusion Reactions: No Reported Reaction Past Psychological History: No Psychological Hx Reported Smoking Status: Former smoker Past Alcohol Use History: None Reported Past Drug Use History: None Reported - Past Family History Mother Family Medical History: Asthma, Thyroid Disorder Additional Family Medical History / Comment(s): cholecystitis Father Family Medical History: Unable to Obtain Medications and Allergies Home Medications Medication Instructions Recorded Confirmed Type Albuterol Sulfate [Ventolin HFA] 2 puff INHALATION RT-QID PRN 04/12/17 12/15/17 History Cetirizine HCl 10 mg PO HS 06/07/17 12/15/17 History Montelukast [Singulair] 10 mg PO HS #30 tab 07/10/17 12/15/17 Rx Budesonide [Pulmicort Flexhaler] 2 puff INHALATION RT-BID 08/22/17 12/15/17 History Pnv No.95/Ferrous Fum/Folic AC 1 tab PO HS 08/22/17 12/15/17 History [ Multivitamin Tablet] Ergocalciferol (Vitamin D2) 1 tab PO WEEKLY 11/29/17 12/15/17 History [Vitamin D2] predniSONE 12.5 mg PO DAILY 11/29/17 12/15/17 History Insulin Regular [HumuLIN R] 16 units SQ BID 12/15/17 12/15/17 History Allergies Allergy/AdvReac Type Severity Reaction Status Date / Time bee venom protein (honey bee) AdvReac Anaphylaxis Verified 12/15/17 12:05 Exam Osteopathic Statement: *. No significant issues noted on an osteopathic structural exam other than those noted in the History and Physical/Consult. HEENT: Within normal limits Heart: Regular rate and rhythm Lungs: Clear to auscultation bilaterally Abdomen: Cervix: Closed/50%/-3 heart tones: 140s by Doppler Extremities: Negative Homans Assessment and Plan (1) 39 weeks gestation of Status: Acute Code(s): Z3A.39 - 39 WEEKS GESTATION OF SNOMED Code( s): 88924635 (2) Previous delivery affecting Status: Acute Code(s): O34.219 - MATERNAL CARE FOR UNSP TYPE SCAR FROM PREVIOUS DEL SNOMED Code(s): 686602434 (3) Family planning Status: Acute Code(s): Z30.09 - ENCOUNTER FOR OTH GENERAL CNSL AND ADVICE ON CONTRACEPTION SNOMED Code(s): 500494595 Plan: Proceed with repeat section with bilateral partial salpingectomy. Will give stress dose steroids. I have discussed the risks, benefits, and alternative therapies for the above- mentioned procedure and for both sedation/anesthesia as well as necessary blood products administration, if indicated, as they pertain to this patient. The patient has indicated her understanding and acceptance of the risks and procedures discussed.
[2017-12-17] MEDS ORDERED: ceFAZolin IN SWFI 2 GM/20 ML SYRINGE IVP ONE (05:59)
[2017-12-17] MEDS ORDERED: methylPREDNISolone SOD SUCCI 250 MG in SODIUM CHLORIDE 0.9% 100 ML IVPB STA (05:59)
[2017-12-17] MEDS ORDERED: CITRIC ACID-SODIUM CITRATE 15 ML CUP PO ONE (05:59)
[2017-12-17] MEDS ORDERED: LIDOCAINE 1% 20 ML VIAL (10MG/ML) FOR IV START INTRADERMA PRN (05:59)
[2017-12-17] MEDS ORDERED: LACTATED RINGERS 1,000 ML IV ONE (05:59)
[2017-12-17] MEDS ORDERED: LACTATED RINGERS 1,000 ML IV SCH (05:59)
[2017-12-17 06:28] LABS: Basophils % (A) 0 %; Eosinophils # (A) 0.1 k/uL (0-0.7); Eosinophils % (A) 1 %; HCT 39.9 % (34.0-46.0); HGB 13.4 gm/dL (11.4-16.0); Lymphocytes # (A) 1.3 k/uL (1.0-4.8); Lymphocytes % (A) 14 %; MCH 28.6 pg (25.0-35.0); MCHC 33.6 g/dL (31.0-37.0); MCV 85.1 fL (80.0-100.0); Mean Platelet Volume 9.1; Monocytes # (A) 0.4 k/uL (0-1.0); Monocytes % (A) 4 %; Neutrophils # (A) 7.4 k/uL (1.3-7.7); Neutrophils % (A) 80 %; Platelet Count 194 k/uL (150-450); RBC 4.69 m/uL (3.80-5.40); RDW 15.4 % (11.5-15.5); WBC 9.3 k/uL (3.8-10.6)
[2017-12-17 07:05] LABS: Glucose,Whole Blood 84 mg/dL (75-99)
[2017-12-17] MEDS ORDERED: KETOROLAC 30 MG/ML 1 ML VIAL ONE (07:53)
[2017-12-17] MEDS ORDERED: NALBUPHINE 10 MG/ML AMPUL ONE (07:53)
[2017-12-17] MEDS ORDERED: MORPHINE SULFATE (PF) 0.3 MG/0.3 ML SYR ONE (07:53)
[2017-12-17] MEDS ORDERED: ONDANSETRON 4 MG/2 ML VIAL ONE (07:53)
[2017-12-17] MEDS ORDERED: OXYTOCIN 10 UNIT/ML 1 ML VIAL ONE (07:53)
[2017-12-17] MEDS ORDERED: diphenhydrAMINE 50 MG/ML 1 ML VIAL IVP PRN ×3 (08:19→10:41)
[2017-12-17] MEDS ORDERED: MORPHINE SULFATE 4 MG/ML SYRINGE IVP PRN (08:19)
[2017-12-17] MEDS ORDERED: NALOXONE 0.4 MG/ML 1 ML VIAL IV PRN ×2 (08:19→10:41)
[2017-12-17] MEDS ORDERED: ONDANSETRON 4 MG/2 ML VIAL IVP PRN ×2 (08:19→10:41)
--- NOTE | 2017-12-17 08:41 | P.OP ---
Date of Procedure: 12/17/17 Preoperative Diagnosis: 1. Intrauterine at 39-0/7 weeks. 2. History of previous section. 3. Family-planning. 4. Gestational diabetes on insulin. 5. Asthma, on steroids Postoperative Diagnosis: Same Procedure(s) Performed: Repeat low transverse section with bilateral partial salpingectomy Anesthesia: spinal (Duramorph) Surgeon: Ruba Tineo Sign Language Instructor #1: Iban Lopez Estimated Blood Loss (ml): 500 Pathology: other (Placenta, portions of right and left fallopian tubes) Condition: stable Disposition: floor Indications for Procedure: This is a 27-year-old female 5 para 3 at 39-0/7 weeks who presents for scheduled repeat section and lateral partial salpingectomy. She is feeling stronger contractions today. course has been complicated by asthma on steroids and gestational diabetes on insulin. I have discussed the risks, benefits, and alternative therapies for the above- mentioned procedure and for both sedation/anesthesia as well as necessary blood products administration, if indicated, as they pertain to this patient. The patient has indicated her understanding and acceptance of the risks and procedures discussed. Operative Findings: A viable female is noted in the vertex presentation with scores of 8 at 1 minute and 9 at 5 minutes and infant weight of 9 lbs. 10 oz. Normal uterus tubes and ovaries are noted. Description of Procedure: The patient is taken to the operating room where she is placed in the dorsal supine position with leftward tilt after spinal Duramorph anesthesia is given. She is prepped and draped in the normal sterile fashion. Skin was tested and found to be adequately anesthetized. A Pfannenstiel skin incision was made with a scalpel through the previous laparotomy scar. A second knife was used to carry the incision down to the underlying layer of fascia. The fascia was nicked in the midline with a scalpel and then extended laterally bilaterally with Crane scissors. The anterior lip of the fascia was grasped with 2 Romi clamps and then dissected off the underlying rectus muscle in the midline with Crane scissors. The inferior aspect of the fascial incision was grasped with 2 Romi clamps and dissected off the underlying rectus muscle and the midline with Crane scissors. Next the peritoneum layer was tented up with 2 hemostats and then entered sharply with the scalpel. The incision is extended superiorly and inferiorly with Metzenbaum scissors. Next a DeLee retractor is placed. The vesicouterine peritoneum is entered sharply with Metzenbaum scissors and extended laterally bilaterally with Metzenbaum scissors and then the bladder flap is pushed inferiorly. The lower uterine segment is incised in transverse fashion with the scalpel and then bluntly entered with a hemostat. Clear fluid is noted. The incision was then extended laterally bilaterally with 2 fingers. Next the infant's head is delivered through the incision in a right occiput posterior lie. Nose and mouth are bulb suctioned. The remainder of the is easily delivered and placed on mother's abdomen. Cord is clamped and cut. Infant is taken to warmer by nursing staff. Cord blood is obtained secondary to Rh- status. Uterine fundus is gently massaged and placenta is delivered manually. Uterus is exteriorized and cleared of all clots and debris. Uterine incision is closed with 0 Vicryl suture in a running locked fashion. A second layer of 0 Vicryl suture is used in a running fashion for hemostasis. Next attention is turned to the tubes. The right fallopian tube is grasped in the midportion with a hemostat. The mesosalpinx is entered with Bovie cautery. 0 Vicryl suture is tied 2 times around both the proximal and distal portion of the tube. Next the knuckle of tube is removed with Metzenbaum scissors and sent to pathology. Next the ends of the tube are cauterized with Bovie cautery. The same procedure is carried out on the left fallopian tube. Posterior cul-de-sac is suctioned of all clots and debris. Uterus is returned to the abdomen. Incision is noted to be hemostatic. Both tubal areas are visualized and appear to be hemostatic. Peritoneal layer is closed with 0 Vicryl suture in a running fashion. Muscle layer is reapproximated with 0 Vicryl suture in interrupted fashion. Fascia layer is then closed with 0 PDS suture with 2 sutures meeting in the midline and the knots buried in either side and in the midline. The subcutaneous tissue was then closed with 2-0 Vicryl suture. Skin layer was then closed with janelle. All sponge and needle counts are correct. The patient is taken to recovery room in stable condition.
[2017-12-17] MEDS ORDERED: diphenhydrAMINE 50 MG CAP PO PRN (10:41)
[2017-12-17] MEDS ORDERED: SIMETHICONE 80 MG CHEWABLE PO PRN (10:41)
[2017-12-17] MEDS ORDERED: diphenhydrAMINE 25 MG CAP PO PRN (10:41)
[2017-12-17] MEDS ORDERED: OXYTOCIN 20 UNITS/1000 ML NS 1,000 ML IV SCH (10:41)
[2017-12-17] MEDS ORDERED: METOCLOPRAMIDE 5 MG/ML 2 ML VIAL IVP PRN (10:41)
[2017-12-17] MEDS ORDERED: ALBUTEROL NEBULIZED 2.5 MG/3 ML INHALATION PRN (10:41)
[2017-12-17] MEDS ORDERED: ZOLPIDEM 5 MG TAB PO PRN (10:41)
[2017-12-17] MEDS ORDERED: Acetaminophen-Codeine 300-30mg TAB PO PRN ×2 (10:41)
[2017-12-17] MEDS ORDERED: predniSONE 5 MG TAB PO SCH (11:00)
[2017-12-17 11:42] LABS: Glucose,Whole Blood 105 mg/dL (75-99)
[2017-12-17 16:39] LABS: Glucose,Whole Blood 115 mg/dL (75-99)
[2017-12-17] MEDS: BUDESONIDE 1 MG/2 ML NEBU INHALATION SCH (19:43)
[2017-12-17 20:44] LABS: Glucose,Whole Blood 82 mg/dL (75-99)
[2017-12-17] MEDS: LORATADINE 10 MG TAB PO SCH (20:46)
[2017-12-17] MEDS: SENNOSIDES-DOCUSATE SODIUM 1 EACH TAB PO SCH ×2 (20:46→23:08)
[2017-12-17] MEDS: MONTELUKAST 10 MG TAB PO SCH (20:47)
[2017-12-17] MEDS: predniSONE 5 MG TAB PO SCH (20:47)
[2017-12-17 22:23] LABS: Hemoglobin A1C 5.1 % (4.0-6.0)
[2017-12-18] MEDS: KETOROLAC 30 MG/ML 1 ML VIAL IVP PRN ×2 (00:09→06:00)
[2017-12-18 07:40] LABS: Basophils % (A) 0 %; Eosinophils # (A) 0.2 k/uL (0-0.7); Eosinophils % (A) 2 %; HCT 34.9 % (34.0-46.0); HGB 11.6 gm/dL (11.4-16.0); Lymphocytes # (A) 1.4 k/uL (1.0-4.8); Lymphocytes % (A) 11 %; MCH 28.6 pg (25.0-35.0); MCHC 33.3 g/dL (31.0-37.0); MCV 85.8 fL (80.0-100.0); Mean Platelet Volume 8.6; Monocytes # (A) 0.5 k/uL (0-1.0); Monocytes % (A) 4 %; Neutrophils # (A) 10.1 k/uL (1.3-7.7); Neutrophils % (A) 82 %; Platelet Count 184 k/uL (150-450); RBC 4.07 m/uL (3.80-5.40); RDW 15.6 % (11.5-15.5); WBC 12.4 k/uL (3.8-10.6)
--- NOTE | 2017-12-18 08:38 | P.PNOBGPC ---
Subjective - Subjective Principal diagnosis: Status post section with tubal ligation postoperative day #1 Interval history: Patient is doing well. She is ambulating. She is passing flatus but no bowel movement yet. Pain is fairly well controlled with Toradol. She is breast- feeding. Lochia is decreasing. Patient reports: Reports appetite normal, Reports voiding normally, Reports pain well controlled, Reports ambulating normally : doing well, nursing well Objective - Vital Signs Latest vital signs: Vital Signs Temp Pulse Resp BP Pulse Ox 12/18/17 05:00 16 12/18/17 04:00 98.1 F 94 16 118/71 96 12/18/17 03:00 18 12/18/17 01:00 18 12/18/17 00:00 98.1 F 76 16 127/68 95 12/17/17 23:00 16 12/17/17 21:00 16 97 12/17/17 20:00 98.1 F 86 16 120/69 97 12/17/17 19:00 16 12/17/17 16:42 16 97 12/17/17 15:51 98 12/17/17 15:46 97.8 F 85 16 123/66 98 12/17/17 14:27 16 12/17/17 13:00 16 12/17/17 12:00 97.5 F L 84 16 99/62 12/17/17 11:19 16 97 12/17/17 10:46 84 16 95/56 12/17/17 10:41 97 12/17/17 10:16 96.5 F L 75 16 111/55 97 12/17/17 09:36 67 16 110/61 97 12/17/17 09:31 103 H 16 106/59 12/17/17 09:19 16 98 12/17/17 09:10 77 16 104/64 12/17/17 08:55 78 16 102/51 98 12/17/17 08:40 98.1 F 90 16 114/56 97 Intake and Output 12/17/17 12/18/17 12/18/17 22:59 06:59 14:59 Output Total 1100 500 Balance -1100 -500 Output: Urine 1100 500 Uretheral (Cobos) 300 Other: # Voids 1 1 - Exam Extremities: Present: normal, edema (Trace). Absent: tenderness Abdomen: Present: normal appearance, soft (Positive bowel sounds 4). Absent: distention, tenderness Incision: Present: normal, dry (Dried serosanguineous discharge is noted on the bandage.), intact Uterus: Present: normal, firm. Absent: tenderness - Labs Labs: Abnormal Lab Results - Last 24 Hours (Table) 12/17/17 12/17/17 12/18/17 Range/Units 11:35 16:34 07:24 WBC 12.4 H (3.8-10.6) k/uL RDW 15.6 H (11.5-15.5) % Neutrophils # 10.1 H (1.3-7.7) k/uL POC Glucose (mg/dL) 105 H 115 H (75-99) mg/dL Assessment and Plan Assessment: Impression is status post repeat section with tubal ligation postoperative day #1 (1) 39 weeks gestation of Current Visit: Yes Status: Acute Code(s): Z3A.39 - 39 WEEKS GESTATION OF SNOMED Code(s): 36627943 (2) Previous delivery affecting Current Visit: Yes Status: Acute Code(s): O34.219 - MATERNAL CARE FOR UNSP TYPE SCAR FROM PREVIOUS DEL SNOMED Code(s): 077915193 (3) Family planning Current Visit: Yes Status: Acute Code(s): Z30.09 - ENCOUNTER FOR OTH GENERAL CNSL AND ADVICE ON CONTRACEPTION SNOMED Code(s): 111133083 Plan: Continue with postoperative care. Will advance diet as tolerated.
[2017-12-18] MEDS: SENNOSIDES-DOCUSATE SODIUM 1 EACH TAB PO SCH ×2 (08:53→20:36)
[2017-12-18] MEDS: BUDESONIDE 1 MG/2 ML NEBU INHALATION SCH ×2 (09:03→19:46)
--- NOTE | 2017-12-18 09:17 | P.PN ---
Progress Note - Text Anesthesia POD 1. Patient is status post section under spinal anesthesia with intra-thecal preservative free morphine 300 g. Minimal pruritus, good post-op analgesia, and no headache or other complication.
[2017-12-18] MEDS: IBUPROFEN 600 MG TAB PO PRN ×2 (12:17→18:46)
[2017-12-18] MEDS: predniSONE 5 MG TAB PO SCH (20:36)
[2017-12-18] MEDS: LORATADINE 10 MG TAB PO SCH (20:36)
[2017-12-18] MEDS: MONTELUKAST 10 MG TAB PO SCH (20:36)
[2017-12-18] MEDS: ACETAMINOPHEN TAB 325 MG TAB PO PRN (20:41)
[2017-12-19] MEDS: IBUPROFEN 600 MG TAB PO PRN (04:36)
[2017-12-19] MEDS: ACETAMINOPHEN TAB 325 MG TAB PO PRN (07:59)
[2017-12-19] MEDS: SENNOSIDES-DOCUSATE SODIUM 1 EACH TAB PO SCH (08:00)
[2017-12-19] MEDS: BUDESONIDE 1 MG/2 ML NEBU INHALATION SCH (08:01)
[2017-12-19 08:04] VITALS: BP 121/82; PULSE 84; RESP 16; TEMP 98
--- NOTE | 2017-12-19 10:11 | P.DS ---
Providers Date of admission: 12/17/17 05:52 Expected date of discharge: 12/19/17 Attending physician: Ruba Tineo Primary care physician: Stated None Hospital Course: Eun is doing very well post op day 3. She is ambulating, voiding, and she is tolerating her diet. She voices no complaints. Her was, K by gestational diabetes for which she received insulin. However since delivery her sugars have been well maintained and insulin as well as Accu-Cheks have been discontinued. She will need follow-up with Dr. Wheeler in 6 weeks for likely to hour Glucola screen. She will also follow-up with Dr. Wheeler in a week first incision check. She is requesting discharge home today prescription for Motrin and Tylenol No. 3 has been provided. She is aware to have no heavy lifting, limit stairs and driving and pelvic rest. If she should have any high temperatures, heavy bleeding, or severe pain or other symptoms she is to notify our office or report to the emergency room. On physical exam vital signs are stable and she is afebrile. Heart regular, lungs clear, extremities are without pain. Abdomen soft uterus is firm and incision is otherwise clean dry and intact. We'll plan to remove janelle today and apply Steri-Strips. Assessment postop day 3. Plan discharged home follow up with Dr. Wheeler in 1 week. Patient Condition at Discharge: Good Plan - Discharge Summary Discharge Rx Participant: Yes New Discharge Prescriptions: New Acetaminophen-Codeine 300-30mg [Tylenol w/codeine #3] 1 each PO Q4HR PRN #30 tab PRN Reason: Mild Pain Ibuprofen [Motrin] 600 mg PO Q6HR PRN #60 tab PRN Reason: Mild Pain Or Fever >= 100.5 Continue Albuterol Sulfate [Ventolin HFA] 2 puff INHALATION RT-QID PRN PRN Reason: Shortness Of Breath Cetirizine HCl 10 mg PO HS Montelukast [Singulair] 10 mg PO HS #30 tab Budesonide [Pulmicort Flexhaler] 2 puff INHALATION RT-BID Pnv No.95/Ferrous Fum/Folic AC [ Multivitamin Tablet] 1 tab PO HS predniSONE 12.5 mg PO DAILY Ergocalciferol (Vitamin D2) [Vitamin D2] 1 tab PO WEEKLY Discontinued Insulin Regular [HumuLIN R] 16 units SQ BID Discharge Medication List Albuterol Sulfate [Ventolin HFA] 2 puff INHALATION RT-QID PRN 04/12/17 [History] Cetirizine HCl 10 mg PO HS 06/07/17 [History] Montelukast [Singulair] 10 mg PO HS #30 tab 07/10/17 [Rx] Budesonide [Pulmicort Flexhaler] 2 puff INHALATION RT-BID 08/22/17 [History] Pnv No.95/Ferrous Fum/Folic AC [ Multivitamin Tablet] 1 tab PO HS [History] Ergocalciferol (Vitamin D2) [Vitamin D2] 1 tab PO WEEKLY 11/29/17 [History] predniSONE 12.5 mg PO DAILY 11/29/17 [History] Acetaminophen-Codeine 300-30mg [Tylenol w/codeine #3] 1 each PO Q4HR PRN #30 tab 12/18/17 [Rx] Ibuprofen [Motrin] 600 mg PO Q6HR PRN #60 tab 12/18/17 [Rx] Follow up Appointment(s)/Referral(s): Ruba Tineo DO [Doctor of Osteopathic Medicine] - 1 Week Activity/Diet/Wound Care/Special Instructions: Instructions 1. Do not begin any exercise program for 3 weeks. 2. Do not resume sexual relations for 3 weeks or longer if uncomfortable. 3. You may take tub baths or showers at any time. 4. You may use tampons if desired after 3 weeks. 5. Keep the area of episiotomy (stitches) clean and dry. 6. If you are not nursing, wear a good fitting, supportive bra during the day and limit fluid intake for at least 1 week to prevent breast engorgement. 7. Call the office, [phone], within the next week to make appointment for your 6 week checkup if it has not already been made. 8. Report any of the following occurrences to the doctor promptly: a. Heavy, excessive bleeding b. Chills, fever c. Burning or frequency of urination d. Pain or redness and breasts if nursing e. Increasing pain or swelling in episiotomy (stitches). In addition to the above instructions, the following additional should be followed: 1. No heavy lifting or straining (exercising) until after 6 week checkup. 2. Keep abdominal incision clean and dry: You may wear a dressing if more comfortable. 3. Make office appointment for 10 days after going home or as instructed by her doctor. Discharge Disposition: HOME SELF-CARE
== END 2017-12-19 14:48 | disposition home or self-care (01) | DRG 766 ==
LOC: 4FBP 05:52
PROVIDERS: ADMIT Obstetrics & Gynecology; ATTEND Obstetrics & Gynecology
PROC: 0UB70ZZ Excision of Bilateral Fallopian Tubes, Open Approach (ICD-10-PCS; 2017-12-17)
PROC: 10D00Z1 Extraction of Products of Conception, Low, Open Approach (ICD-10-PCS; principal; 2017-12-17 08:00)
DX: O34.211 Maternal care for low transverse scar from previous cesarean delivery (principal); O24.424 Gestational diabetes mellitus in childbirth, insulin controlled; J45.909 Unspecified asthma, uncomplicated; Z37.0 Single live birth; O26.893 Other specified pregnancy related conditions, third trimester; O99.52 Diseases of the respiratory system complicating childbirth; Z3A.39 39 weeks gestation of pregnancy; Z87.891 Personal history of nicotine dependence; Z79.4 Long term (current) use of insulin; Z79.899 Other long term (current) drug therapy; Z79.52 Long term (current) use of systemic steroids; Z91.030 Bee allergy status; Z67.91 Unspecified blood type, Rh negative; Z82.5 Family history of asthma and other chronic lower respiratory diseases; Z84.89 Family history of other specified conditions; Z30.2 Encounter for sterilization
CPT/HCPCS: 83036; 85025; 86850; 86870; 86880; 86900; 86901; 88302; 88307

== ENCOUNTER 2018-10-28 12:24 | Inpatient (IN) | payer OTHER ==
[2018-10-28] MEDS ORDERED: SODIUM CHLORIDE 0.9% 500 ML 500 ML IV STA (12:45)
[2018-10-28] MEDS ORDERED: IPRATROPIUM-ALBUTEROL 3 ML NEB INHALATION STA (12:45)
[2018-10-28] MEDS ORDERED: methylPREDNISolone SOD SUCCI 125 MG/2 ML VIAL IV STA (12:45)
[2018-10-28 13:11] LABS: Anisocytosis Slight; Basophils % (A) 0 %; Eosinophils # (A) 0.5 k/uL (0-0.7); Eosinophils % (A) 4 %; HGB 12.9 gm/dL (11.4-16.0); Lymphocytes # (A) 1.2 k/uL (1.0-4.8); Lymphocytes % (A) 9 %; MCH 26.2 pg (25.0-35.0); MCHC 31.5 g/dL (31.0-37.0); Mean Platelet Volume 7.1; Monocytes # (A) 0.4 k/uL (0-1.0); Monocytes % (A) 3 %; Neutrophils # (A) 11.4 k/uL (1.3-7.7); Neutrophils % (A) 83 %; Platelet Count 254 k/uL (150-450); RBC 4.94 m/uL (3.80-5.40); RDW 16.4 % (11.5-15.5); WBC 13.7 k/uL (3.8-10.6)
[2018-10-28 13:19] LABS: ALT 38 U/L (9-52); AST 21 U/L (14-36); Albumin 4.3 g/dL (3.5-5.0); Alkaline Phosphatase 77 U/L (38-126); Anion Gap 6 mmol/L; Blood Urea Nitrogen 9 mg/dL (7-17); Calcium 9.2 mg/dL (8.4-10.2); Carbon Dioxide 24 mmol/L (22-30); Chloride 109 mmol/L (98-107); Glucose 93 mg/dL (74-99); Magnesium 1.7 mg/dL (1.6-2.3); Potassium 4.1 mmol/L (3.5-5.1); Sodium 139 mmol/L (137-145); Total Bilirubin 0.9 mg/dL (0.2-1.3); Total Protein 7.4 g/dL (6.3-8.2)
--- NOTE | 2018-10-28 13:48 | XR ---
EXAMINATION TYPE: XR chest 2V DATE OF EXAM: 10/28/2018 COMPARISON: 07/07/2017 HISTORY: Shortness of breath, cough and asthma TECHNIQUE: Frontal and lateral views of the chest are obtained. FINDINGS: There is no focal air space opacity, pleural effusion, or pneumothorax seen. The cardiac silhouette size is within normal limits. The osseous structures are intact. IMPRESSION: No acute cardiopulmonary process.
[2018-10-28] MEDS ORDERED: ALBUTEROL NEBULIZED 2.5 MG/3 ML INHALATION STA ×2 (13:55→15:17)
[2018-10-28] MEDS ORDERED: LORazepam 2 MG/ML INJ IV STA (13:55)
--- NOTE | 2018-10-28 14:14 | ED ---
General Adult HPI - General Chief complaint: Shortness of Breath Stated complaint: asthma/SOB Time Seen by Provider: 10/28/18 12:34 Source: patient, RN notes reviewed Mode of arrival: wheelchair Limitations: no limitations - History of Present Illness Initial comments: 28-year-old female presents emergency department chief complaint of shortness of breath. Patient states she had some wheezing yesterday which is mildly worse today. Patient states she cannot get any air in or out. She is an asthmatic states that she's been multiple weeks in the hospital in the past. Patient states that she did use her inhaler and nebulizer with minimal relief. Patient states that when she went outside symptoms to get worse. Patient reports no fever or chills. She states she does have chest tightness. Patient was scheduled appointment with Dr. Restrepo today at 3:30 but cannot wait. - Related Data Home Medications Medication Instructions Recorded Confirmed Albuterol Sulfate [Ventolin HFA] 2 puff INHALATION RT-QID PRN 04/12/17 10/28/18 Albuterol Nebulized [Ventolin 2.5 mg INHALATION RT-Q6H PRN 10/28/18 10/28/18 Nebulized] Fluticasone/Salmeterol 2 puff INHALATION RT-DAILY 10/28/18 10/28/18 [Fluticasone-Salmeterol 113-14] Ipratropium Nebulized [Atrovent 0.5 mg INHALATION RT-Q6H PRN 10/28/18 10/28/18 Nebulized 0.2 MG/ML] Previous Rx's Medication Instructions Recorded Montelukast [Singulair] 10 mg PO HS #30 tab 07/10/17 Allergies Allergy/AdvReac Type Severity Reaction Status Date / Time bee venom protein (honey bee) AdvReac Anaphylaxis Verified 10/28/18 12:56 Review of Systems ROS Statement: Those systems with pertinent positive or pertinent negative responses have been documented in the HPI. ROS Other: All systems not noted in ROS Statement are negative. Past Medical History Past Medical History: Asthma Additional Past Medical History / Comment(s): BRONCHITIS History of Any Multi-Drug Resistant Organisms: None Reported Past Surgical History: Section Additional Past Surgical History / Comment(s): c-sect x 2 Past Anesthesia/Blood Transfusion Reactions: No Reported Reaction Past Psychological History: No Psychological Hx Reported Smoking Status: Never smoker Past Alcohol Use History: None Reported Past Drug Use History: None Reported - Past Family History Mother Family Medical History: Asthma, Thyroid Disorder Additional Family Medical History / Comment(s): cholecystitis Father Family Medical History: Unable to Obtain General Exam Limitations: no limitations General appearance: alert, in no apparent distress Head exam: Present: atraumatic, normocephalic, normal inspection Eye exam: Present: normal appearance, PERRL, EOMI. Absent: scleral icterus, conjunctival injection, periorbital swelling ENT exam: Present: normal exam, normal oropharynx, mucous membranes moist, TM's normal bilaterally, normal external ear exam Neck exam: Present: normal inspection, full ROM. Absent: tenderness, meningismus, lymphadenopathy Respiratory exam: Present: respiratory distress (Moderate), wheezes (Bilateral throughout). Absent: normal lung sounds bilaterally, rales, rhonchi, stridor Cardiovascular Exam: Present: normal rhythm, tachycardia, normal heart sounds. Absent: systolic murmur, diastolic murmur, rubs, gallop, clicks GI/Abdominal exam: Present: soft, normal bowel sounds. Absent: distended, tenderness, guarding, rebound, rigid Course Vital Signs 10/28/18 10/28/18 10/28/18 12:26 13:02 13:22 Temperature 99.3 F Pulse Rate 131 H 129 H 134 H Respiratory 28 H Rate Blood Pressure 130/65 O2 Sat by Pulse 97 Oximetry 10/28/18 10/28/18 10/28/18 13:31 14:07 14:17 Temperature Pulse Rate 137 H 115 H 126 H Respiratory 18 Rate Blood Pressure 138/80 O2 Sat by Pulse 96 Oximetry 10/28/18 14:27 Temperature 99.5 F Pulse Rate 125 H Respiratory 20 Rate Blood Pressure 133/83 O2 Sat by Pulse 93 L Oximetry Medical Decision Making - Medical Decision Making 28-year-old female presented emergency department for shortness of breath. Patient is found to be tachypneic, tachycardic. Patient is having severe asthma exacerbation. Patient was given multiple treatments of albuterol and Atrovent. Patient had slight improvement. Patient chest x-ray was reviewed no acute abnormality. Patient we given magnesium additional treatments and admitted for management of asthma exacerbation - Lab Data Result diagrams: 10/28/18 12:55 10/28/18 12:55 Lab Results 10/28/18 10/28/18 Range/Units 12:55 12:55 WBC 13.7 H (3.8-10.6) k/uL RBC 4.94 (3.80-5.40) m/uL Hgb 12.9 (11.4-16.0) gm/dL Hct 41.0 (34.0-46.0) % MCV 83.0 (80.0-100.0) fL MCH 26.2 (25.0-35.0) pg MCHC 31.5 (31.0-37.0) g/dL RDW 16.4 H (11.5-15.5) % Plt Count 254 (150-450) k/uL Neutrophils % 83 % Lymphocytes % 9 % Monocytes % 3 % Eosinophils % 4 % Basophils % 0 % Neutrophils # 11.4 H (1.3-7.7) k/uL Lymphocytes # 1.2 (1.0-4.8) k/uL Monocytes # 0.4 (0-1.0) k/uL Eosinophils # 0.5 (0-0.7) k/uL Basophils # 0.0 (0-0.2) k/uL Anisocytosis Slight Sodium 139 (137-145) mmol/L Potassium 4.1 (3.5-5.1) mmol/L Chloride 109 H (98-107) mmol/L Carbon Dioxide 24 (22-30) mmol/L Anion Gap 6 mmol/L BUN 9 (7-17) mg/dL Creatinine 0.56 (0.52-1.04) mg/dL Est GFR (CKD-EPI)AfAm >90 (>60 ml/min/1.73 sqM) Est GFR (CKD-EPI)NonAf >90 (>60 ml/min/1.73 sqM) Glucose 93 (74-99) mg/dL Calcium 9.2 (8.4-10.2) mg/dL Magnesium 1.7 (1.6-2.3) mg/dL Total Bilirubin 0.9 (0.2-1.3) mg/dL AST 21 (14-36) U/L ALT 38 (9-52) U/L Alkaline Phosphatase 77 (38-126) U/L Total Protein 7.4 (6.3-8.2) g/dL Albumin 4.3 (3.5-5.0) g/dL - Radiology Data Chest x-ray no acute cardiopulmonary process Disposition Clinical Impression: Asthma with status asthmaticus Disposition: ADMITTED IP TO THIS HOSP Condition: Fair Referrals: Chace Meng MD [Primary Care Provider] - 1-2 days
[2018-10-28] MEDS ORDERED: SODIUM CHLORIDE 0.9% 500 ML 500 ML IV ONE (15:17)
[2018-10-28] MEDS ORDERED: LORazepam 0.5 MG TAB PO PRN (15:21)
[2018-10-28] MEDS: MAGNESIUM SULFATE-D5W PMX 1 GM in DEXTROSE/WATER 1 100ML.BAG IVPB SCH ×2 (15:53→18:06)
[2018-10-28 16:21] VITALS: BMI 36.9
--- NOTE | 2018-10-28 17:01 | P.CNPUL ---
History of Present Illness Consult date: 10/28/18 Reason for consult: other (Acute asthma exacerbation) Chief complaint: Shortness of breath cough and wheeze History of present illness: This is a 28-year-old female with history of severe persistent asthma, follows up normally with Dr. Coy on a regular basis, she actually sees him almost on a monthly basis. Patient is maintained on Ventolin, Symbicort, Singulair, she is also on albuterol and Atrovent updrafts 4 times a day and when necessary. Patient was supposed to see Dr. Coy today for 2 days history of cough wheezing shortness of breath, however her condition became much worse later this afternoon, and her appointment was supposed to be at 3:30 PM in our office. Patient also felt lightheaded, and had a near syncopal episode. This happened while she was coughing and she was having significant chest tightness. At any rate patient was seen in the ER, placed on multiple bronchodilators, given IV Solu-Medrol, chest x-ray was basically negative for pneumonia, patient was admitted and this consult was initiated. Since her arrival to the ER until now, the patient showed a significant improvement. Continues to cough and wheeze, denies any fever or chills, cough is productive with whitish phlegm, denies any chest pain, no hemoptysis, no nausea no vomiting no abdominal pain. Patient was admitted to the hospital back in 2017, and she was seen at the time by Dr. Coy on consultation, and she has been seeing since then on a regular basis. Patient used to smoke, but she doesn't smoke at present. She may be exposed to secondhand smoke. She has strong family history of asthma/but mother. She has symptoms of chronic GERD, takes Tums quite frequently for her symptoms of acid reflux. Seems to use her rescue inhaler frequently on a regular basis. Patient was diagnosed with asthma about 4 years ago. Patient describes multiple triggers to her asthma including exposure to cats, cigarette smoke, cold air, exercise, 3 polyps, and grass weed. Review of Systems 14 point review of systems were obtained, please refer to pertinent positives in HPI, otherwise remaining systems are negative. Past Medical History Past Medical History: Asthma, Pneumonia Additional Past Medical History / Comment(s): BRONCHITIS, anemia History of Any Multi-Drug Resistant Organisms: None Reported Past Surgical History: Section, Tubal Ligation Additional Past Surgical History / Comment(s): c-sect x 3 Past Anesthesia/Blood Transfusion Reactions: No Reported Reaction Smoking Status: Former smoker - Past Family History Mother Family Medical History: Asthma, Thyroid Disorder Additional Family Medical History / Comment(s): cholecystitis Father Family Medical History: Unable to Obtain Medications and Allergies Home Medications Medication Instructions Recorded Confirmed Type Albuterol Sulfate [Ventolin HFA] 2 puff INHALATION RT-QID PRN 04/12/17 10/28/18 History Montelukast [Singulair] 10 mg PO HS #30 tab 07/10/17 10/28/18 Rx Albuterol Nebulized [Ventolin 2.5 mg INHALATION RT-Q6H PRN 10/28/18 10/28/18 History Nebulized] Fluticasone/Salmeterol 2 puff INHALATION RT-DAILY 10/28/18 10/28/18 History [Fluticasone-Salmeterol 113-14] Ipratropium Nebulized [Atrovent 0.5 mg INHALATION RT-Q6H PRN 10/28/18 10/28/18 History Nebulized 0.2 MG/ML] Allergies Allergy/AdvReac Type Severity Reaction Status Date / Time bee venom protein (honey bee) AdvReac Anaphylaxis Verified 10/28/18 16:32 Physical Exam Vitals: Vital Signs Temp Pulse Pulse Resp BP BP Pulse Ox 10/28/18 16:30 97.8 F 118 H 19 121/78 96 10/28/18 15:56 98.7 F 117 H 20 133/98 97 10/28/18 15:46 113 H 10/28/18 15:33 124 H 10/28/18 14:27 99.5 F 125 H 20 133/83 93 L 10/28/18 14:17 126 H 10/28/18 14:07 115 H 10/28/18 13:31 137 H 18 138/80 96 10/28/18 13:22 134 H 10/28/18 13:02 129 H 10/28/18 12:26 99.3 F 131 H 28 H 130/65 97 Intake and Output 10/28/18 10/28/18 10/28/18 06:59 14:59 22:59 Other: Weight 88.632 kg Physical Exam: Revealed a 28-year-old female in no distress. Head: Atraumatic normocephalic. HEENT:[Neck is supple.] [No neck masses.] [No thyromegaly.] [No JVD.] Chest: [Diminished breath sound bilaterally, rhonchi and wheezes noted bilaterally more so on forced expiratory maneuver..] Cardiac Exam: [Normal S1 and S2, no S3 gallop, no murmur.] Abdomen: [Obese, Soft, nontender, no megaly, no rebound, no guarding, normal bowel sounds.] Extremities: [No clubbing, no edema, no cyanosis.] Neurological Exam: [No focal neurologic deficit.] Skin: No rashes. Psychiatric: Normal mood, affect and mental status examination. Results - Laboratory Findings CBC and BMP: 10/28/18 12:55 10/28/18 12:55 Abnormal lab findings: Abnormal Labs 10/28/18 10/28/18 12:55 12:55 WBC 13.7 H RDW 16.4 H Neutrophils # 11.4 H Chloride 109 H - Diagnostic Findings Chest x-ray: image reviewed (No evidence of active disease) Assessment and Plan Assessment: Impression: 1 acute exacerbation of severe persistent asthma. 2 acute tracheobronchitis 3 history of severe GERD, poorly controlled. 4 history of multiple environmental ALLERGIES. Recommendation: Patient will remain on the present meds including albuterol, Atrovent updrafts, Solu-Medrol 60 mg IV push every 6 hours, resume Singulair, Symbicort, will add Protonix for her history of GERD as a baby a major contributing factor to her symptoms. We will reassess the patient in the morning, and if significantly improved consider switching IV Solu-Medrol to prednisone, and discharge planning. We'll continue to follow. Time with Patient: Greater than 30
[2018-10-28] MEDS ORDERED: IPRATROPIUM-ALBUTEROL 3 ML NEB INHALATION PRN (17:38)
[2018-10-28] MEDS: AZITHROMYCIN 500 MG TAB PO SCH (18:06)
[2018-10-28] MEDS: methylPREDNISolone SOD SUCCI 125 MG/2 ML VIAL IV SCH ×2 (18:06→23:38)
[2018-10-28] MEDS: PANTOPRAZOLE 40 MG TABLET PO SCH (18:06)
[2018-10-28] MEDS: ACETAMINOPHEN TAB 325 MG TAB PO PRN (18:41)
[2018-10-28] MEDS: LORATADINE 10 MG TAB PO SCH (18:41)
[2018-10-28] MEDS: SODIUM CHLORIDE 0.9% 500 ML 500 ML IV SCH ×2 (18:45→23:38)
[2018-10-28] MEDS: IPRATROPIUM-ALBUTEROL 3 ML NEB INHALATION SCH (20:30)
[2018-10-28 20:50] LABS: Glucose,Whole Blood 165 mg/dL (75-99)
[2018-10-28] MEDS ORDERED: MONTELUKAST 10 MG TAB PO SCH ×2 (21:00)
[2018-10-28] MEDS: INSULIN ASPART 100 UNIT/ML 1 ML 10 ML VIAL SQ SCH (21:22)
--- NOTE | 2018-10-29 00:34 | P.HPIM ---
History of Present Illness H&P Date: 10/28/18 Chief Complaint: Shortness of breath Patient is a 28-year-old female with known history of asthma, GERD, previous history of smoking follows with Dr. Coy as an outpatient came to ER with complaints of worsening shortness of breath and wheezing. Patient is supposed to see Dr. Coy at 3:30 PM today. Patient went to [employer] yesterday around 11 AM. Patient says that she did not get exposed to cold air at that time. After coming home she felt like try scratching feeling in the throat and was coughing a lot. Today morning when she woke up she felt her chest is tight and also wheezing a lot. Patient was trying to pickle maker her daughter and suddenly felt more short of breath and tightness. Patient tried using breathing treatments at home but did not help. Patient presented to ER with worsening shortness of breath. Patient was given multiple breathing treatments in the ER with some improvement and was admitted to the hospital for further management. Chest x-ray showed no acute cardiopulmonary process. Patient denied any fever or chills. Patient does have cough but no sputum production. No nausea vomiting or abdominal pain. No headache or dizziness or lightheadedness. Patient describes multiple triggers to her asthma including exposure to cats, cigarette smoke, cold air, exercise, 3 polyps, and grass weed. Patient does have severe persistent asthma. Review of Systems Constitutional: Patient denies any fever or chills . No generalized weakness or weight loss. Abdomen: Patient denied nausea vomiting and diarrhea and abdominal pain. Cardiovascular: Patient denies any chest pain or short of breath no palpitations. Respiratory: Patient does have shortness breath and cough. No sputum production. Neurologic: Patient denied any numbness or tingling headache. Musculoskeletal: Patient denies any complaints of joint swelling or deformity. Skin: Negative Psychiatric: Negative Endocrine: No heat or cold intolerance. No recent weight gain. Genitourinary: No dysuria or hematuria. All other 14 point ROS negative except the above Past Medical History Past Medical History: Asthma, Pneumonia Additional Past Medical History / Comment(s): BRONCHITIS, anemia History of Any Multi-Drug Resistant Organisms: None Reported Past Surgical History: Section, Tubal Ligation Additional Past Surgical History / Comment(s): c-sect x 3 Past Anesthesia/Blood Transfusion Reactions: No Reported Reaction Smoking Status: Former smoker - Past Family History Mother Family Medical History: Asthma, Thyroid Disorder Additional Family Medical History / Comment(s): cholecystitis Father Family Medical History: Unable to Obtain Medications and Allergies Home Medications Medication Instructions Recorded Confirmed Type Albuterol Sulfate [Ventolin HFA] 2 puff INHALATION RT-QID PRN 04/12/17 10/28/18 History Montelukast [Singulair] 10 mg PO HS #30 tab 07/10/17 10/28/18 Rx Albuterol Nebulized [Ventolin 2.5 mg INHALATION RT-Q6H PRN 10/28/18 10/28/18 History Nebulized] Fluticasone/Salmeterol 2 puff INHALATION RT-DAILY 10/28/18 10/28/18 History [Fluticasone-Salmeterol 113-14] Ipratropium Nebulized [Atrovent 0.5 mg INHALATION RT-Q6H PRN 10/28/18 10/28/18 History Nebulized 0.2 MG/ML] Allergies Allergy/AdvReac Type Severity Reaction Status Date / Time bee venom protein (honey bee) AdvReac Anaphylaxis Verified 10/28/18 16:32 Physical Exam Vitals: Vital Signs Temp Pulse Pulse Resp BP BP Pulse Ox 10/28/18 20:40 118 H 10/28/18 20:30 115 H 97 10/28/18 16:30 97.8 F 118 H 19 121/78 96 10/28/18 15:56 98.7 F 117 H 20 133/98 97 10/28/18 15:46 113 H 10/28/18 15:33 124 H 10/28/18 14:27 99.5 F 125 H 20 133/83 93 L 10/28/18 14:17 126 H 10/28/18 14:07 115 H 10/28/18 13:31 137 H 18 138/80 96 10/28/18 13:22 134 H 10/28/18 13:02 129 H 10/28/18 12:26 99.3 F 131 H 28 H 130/65 97 Intake and Output 10/28/18 10/28/18 10/28/18 06:59 14:59 22:59 Other: Weight 88.632 kg PHYSICAL EXAMINATION: Patient is lying in the bed comfortably, no acute distress, awake alert and oriented.. HEENT: Normocephalic. Neck is supple. Pupils reactive. Nostrils clear. Oral cavity is moist. Ears reveal no drainage. Neck reveals no JVD, carotid bruits, or thyromegaly. CHEST EXAMINATION: Trachea is central. Symmetrical expansion. Bilateral diminished air entry and prolonged expiration and wheezing. CARDIAC: Normal S1, S2 with no gallops. No murmurs ABDOMEN: Soft. Bowel sounds normal. No organomegaly. No abdominal bruits. Extremities: reveal no edema. No clubbing or cyanosis Neurologically awake, alert, oriented x3 with well-coordinated movements. No focal deficits noted Skin: No rash or skin lesions. Psychiatric: Coperative. Nonsuicidal Musculoskeletal: No joint swelling or deformity. Normal range of motion. Results CBC & Chem 7: 10/28/18 12:55 10/28/18 12:55 Labs: Abnormal Lab Results - Last 24 Hours (Table) 10/28/18 10/28/18 10/28/18 Range/Units 12:55 12:55 20:48 WBC 13.7 H (3.8-10.6) k/uL RDW 16.4 H (11.5-15.5) % Neutrophils # 11.4 H (1.3-7.7) k/uL Chloride 109 H (98-107) mmol/L POC Glucose (mg/dL) 165 H (75-99) mg/dL Thrombosis Risk Factor Assmnt - DVT/VTE Prophylaxis DVT/VTE Prophylaxis: Pharmacologic Prophylaxis ordered - Choose All That Apply Any of the Below Risk Factors Present?: Yes Each Factor Represents 1 point: Abnormal pulmonary function (COPD), Obesity ( BMI >25) Thrombosis Risk Factor Assessment Total Risk Factor Score: 2 Thrombosis Risk Factor Assessment Level: Low Risk Assessment and Plan Assessment: Acute severe persistent asthma exacerbation Possible tracheobronchitis GERD Previous history of smoking Multiple environmental ALLERGIES GI DVT prophylaxis Plan: Patient will be continued on Solu-Medrol 60 mg IV every 6 hourly. DuoNeb's and Symbicort and Singulair will be continued. Continue PPI. Pulmonary was consulted. Further recommendations based on the clinical course. Time with Patient: Greater than 30
[2018-10-29 00:57] LABS: Hemoglobin A1C 5.6 % (4.0-6.0)
[2018-10-29] MEDS: methylPREDNISolone SOD SUCCI 125 MG/2 ML VIAL IV SCH ×2 (05:52→11:54)
[2018-10-29 06:41] LABS: Glucose,Whole Blood 121 mg/dL (75-99)
[2018-10-29] MEDS: INSULIN ASPART 100 UNIT/ML 1 ML 10 ML VIAL SQ SCH ×2 (06:44→11:58)
[2018-10-29] MEDS: PANTOPRAZOLE 40 MG TABLET PO SCH ×2 (06:48→16:02)
[2018-10-29] MEDS ORDERED: SYMBICORT 160-4.5 MCG INHALER INHALATION SCH (08:00)
[2018-10-29] MEDS: IPRATROPIUM-ALBUTEROL 3 ML NEB INHALATION SCH ×3 (08:06→16:11)
[2018-10-29] MEDS: LORATADINE 10 MG TAB PO SCH (08:23)
[2018-10-29] MEDS: AZITHROMYCIN 500 MG TAB PO SCH (08:23)
[2018-10-29] MEDS: ACETAMINOPHEN TAB 325 MG TAB PO PRN (08:27)
[2018-10-29] MEDS: SODIUM CHLORIDE 0.9% 500 ML 500 ML IV SCH (09:08)
--- NOTE | 2018-10-29 11:55 | P.PN ---
Subjective Progress Note Date: 10/29/18 Principal diagnosis: Acute exacerbation of chronic moderate persistent bronchial asthma This is a 28-year-old female with history of severe persistent asthma, follows up normally with Dr. Coy on a regular basis, she actually sees him almost on a monthly basis. Patient is maintained on Ventolin, Symbicort, Singulair, she is also on albuterol and Atrovent updrafts 4 times a day and when necessary. Patient was supposed to see Dr. Coy today for 2 days history of cough wheezing shortness of breath, however her condition became much worse later this afternoon, and her appointment was supposed to be at 3:30 PM in our office. Patient also felt lightheaded, and had a near syncopal episode. This happened while she was coughing and she was having significant chest tightness. At any rate patient was seen in the ER, placed on multiple bronchodilators, given IV Solu-Medrol, chest x-ray was basically negative for pneumonia, patient was admitted and this consult was initiated. Since her arrival to the ER until now, the patient showed a significant improvement. Continues to cough and wheeze, denies any fever or chills, cough is productive with whitish phlegm, denies any chest pain, no hemoptysis, no nausea no vomiting no abdominal pain. Patient was admitted to the hospital back in 2016, and she was seen at the time by Dr. Coy on consultation, and she has been seeing since then on a regular basis. Patient used to smoke, but she doesn't smoke at present. She may be exposed to secondhand smoke. She has strong family history of asthma/but mother. She has symptoms of chronic GERD, takes Tums quite frequently for her symptoms of acid reflux. Seems to use her rescue inhaler frequently on a regular basis. Patient was diagnosed with asthma about 4 years ago. Patient describes multiple triggers to her asthma including exposure to cats, cigarette smoke, cold air, exercise, 3 polyps, and grass weed. He is seen again today 10/29/2018 in follow-up on the pediatric unit. She is awake and alert in no acute distress. She is doing quite a bit better today as compared to yesterday. We'll short of breath. Less bronchospastic and wheezing. She is maintaining good O2 saturations in the mid 90s on room air. She's been afebrile. Hemodynamically stable. His been initiated on DuoNeb inhalations, Symbicort, IV Solu-Medrol, Singulair, Claritin. She is also on empiric antibiotics in the form of azithromycin. Objective - Vital Signs Vital signs: Vital Signs Temp 97.9 F 10/29/18 08:19 Pulse 100 10/29/18 08:20 Resp 16 10/29/18 08:19 BP 132/78 10/29/18 08:19 Pulse Ox 95 10/29/18 08:19 Intake & Output 10/28/18 10/29/18 10/29/18 18:59 06:59 18:59 Intake Total 500 Balance 500 Weight 88.632 kg Intake: Oral 500 Other: Voiding Method Toilet # Voids 1 1 # Bowel Movements 1 - Exam GENERAL EXAM: Alert, active, comfortable in no apparent distress. HEAD: Normocephalic. EYES: Normal reaction of pupils, equal size. NOSE: Clear with pink turbinates. THROAT: No erythema or exudates. NECK: No masses, no JVD. CHEST: No chest wall deformity. LUNGS: Equal air entry with faint end expiratory wheeze. CVS: S1 and S2 normal with no audible murmur, regular rhythm. ABDOMEN: No hepatosplenomegaly, normal bowel sounds, no guarding or rigidity. SPINE: No scoliosis or deformity SKIN: No rashes CENTRAL NERVOUS SYSTEM: No focal deficits, tone is normal in all 4 extremities. EXTREMITIES: There is no peripheral edema. No clubbing, no cyanosis. Peripheral pulses are intact. - Labs CBC & Chem 7: 10/28/18 12:55 10/28/18 12:55 Labs: Abnormal Lab Results - Last 24 Hours (Table) 10/28/18 10/28/18 10/28/18 Range/Units 12:55 12:55 20:48 WBC 13.7 H (3.8-10.6) k/uL RDW 16.4 H (11.5-15.5) % Neutrophils # 11.4 H (1.3-7.7) k/uL Chloride 109 H (98-107) mmol/L POC Glucose (mg/dL) 165 H (75-99) mg/dL 10/29/18 Range/Units 06:41 WBC (3.8-10.6) k/uL RDW (11.5-15.5) % Neutrophils # (1.3-7.7) k/uL Chloride (98-107) mmol/L POC Glucose (mg/dL) 121 H (75-99) mg/dL Assessment and Plan Assessment: Impression: #1 Acute exacerbation of chronic moderate persistent bronchial asthma complicated by purulent tracheobronchitis. #2 Gastroesophageal reflux disease. #3 History of multiple environmental ALLERGIES. Plan: The patient was seen and evaluated by Dr. Mao. She is improved quite a bit today as compared to yesterday. Not quite back to her baseline. We'll continue with her current treatment plan. We will increase her activity as tolerated. We'll continue to follow and make further recommendations based on her clinical status. I, the cosigning physician, performed a history & physical examination of the patient. Lungs sounds with faint end expiratory wheeze. Maintaining good O2 saturations in the 90s on room air. I discussed the assessment and plan of care with my nurse practitioner, Joelle Thomas. I attest to the above note as dictated by her.
[2018-10-29 12:08] LABS: Glucose,Whole Blood 104 mg/dL (75-99)
[2018-10-29 15:52] VITALS: BP 116/73; RESP 20; TEMP 98.1
[2018-10-29] MEDS ORDERED: predniSONE 50 MG TAB PO SCH (16:00)
[2018-10-29 16:24] VITALS: PULSE 94
== END 2018-10-29 17:15 | disposition home or self-care (01) | DRG 203 ==
LOC: EC 12:24 → 6PED 15:23
PROVIDERS: ADMIT Internal Medicine; ATTEND Internal Medicine
DX: J45.52 Severe persistent asthma with status asthmaticus (principal); J20.9 Acute bronchitis, unspecified; K21.9 Gastro-esophageal reflux disease without esophagitis; Z77.22 Contact with and (suspected) exposure to environmental tobacco smoke (acute) (chronic); Z79.899 Other long term (current) drug therapy; Z82.5 Family history of asthma and other chronic lower respiratory diseases; Z87.891 Personal history of nicotine dependence; Z79.51 Long term (current) use of inhaled steroids; Z91.030 Bee allergy status
CPT/HCPCS: 36415; 71046; 80053; 83036; 83735; 85025; 94640; 96361; 96374; 96375; 99285

== ENCOUNTER 2019-01-18 10:39 | Day surgery (SDC) | payer OTHER ==
[2019-01-17 08:30] VITALS: BMI 35.6
[~2019-01-18 10:39] MED LIST: ALBUTEROL NEB (CONC) 2.5 MG/0.5 ML INHALATION ONE; ATROPINE SULFATE 0.4 MG/ML 1 ML VIAL IM ONE; DEXAMETHASONE SOD PHOSPHATE 10 MG/ML 1 ML VIAL IV ONE; LACTATED RINGERS 1,000 ML IV SCH; LIDOCAINE 2% (PF) 20 MG/ML 10 ML AMP INHALATION ONE; LIDOCAINE VISCOUS 300 MG/15 ML CUP MUCOUS MEM ONE; MORPHINE SULFATE 2 MG/ML SYRINGE IV PRN; ONDANSETRON 4 MG/2 ML VIAL IVP ONE; SODIUM CHLORIDE 0.9% 1,000 ML IV SCH
[2019-01-18] MEDS ORDERED: LIDOCAINE 1% 20 ML VIAL (10MG/ML) FOR IV START INTRADERMA ONE (11:28)
[2019-01-18 11:30] VITALS: RESP 16; TEMP 97.1
[2019-01-18 11:32] LABS: Glucose,Whole Blood 97 mg/dL (75-99)
[2019-01-18] MEDS ORDERED: fentaNYL (PF) 50 MCG/ML 2 ML AMP ONE (12:01)
[2019-01-18] MEDS ORDERED: LIDOCAINE 1% INJ 10MG/ML (20 ML MDV) ONE (12:01)
[2019-01-18] MEDS ORDERED: PROPOFOL 10 MG/ML 20 ML VIAL IV ONE (12:01)
[2019-01-18] MEDS ORDERED: LIDOCAINE 2% INJ 20 MG/ML INTRATRACH ONE (12:14)
--- NOTE | 2019-01-18 12:45 | PCN ---
PROCEDURE NOTE PROCEDURE: Bronchoscopy, airway examination, therapeutic lavage, BAL right middle lobe. PREOPERATIVE DIAGNOSIS: Severe persistent asthma. POSTOPERATIVE DIAGNOSIS: Severe persistent asthma. OPERATORS: Dr. Coy and Dr. Thomas. PROCEDURE: The SCHOOL SUPERVISOR provided genera anesthesia/unconscious sedation. There was informed consent and universal timeout. After the patient was adequately sedated and being fully monitored, the bronchoscope was inserted without difficulty through the right nostril. It passed through the right nasopharynx into the oropharynx. The hypopharynx was identified and topicalized. The anterior commissure, true cords, false cords, arytenoids, piriform sinuses, right and left vallecula and epiglottis all appeared normal. After topicalization, the bronchoscope was pushed through the glottic opening into the trachea. The trachea appeared normal. Tracheal viviana was sharp. The right and left mainstem were topicalized. The right upper lobe and its 3 segments, right middle lobe and its 2 segments, right lower lobe and its 5 segments the left upper lobe proper and its 2 segments, the lingula and its 2 segments and the left lower lobe and its 4 segments all had similar findings of moderate to severe hyperemia and erythema of the airways. There was vascular engorgement. There was some thin secretions noted throughout. There was no dominant mass or tumor. The mucosa was not particularly friable and did not bleed very easily. After the secretions were suctioned, the bronchoscope was wedged into the right middle lobe. The BAL was accomplished. There was no immediate complication. The patient tolerated the procedure well. The bronchoscope was withdrawn. The specimens will be sent to the laboratory and the patient will be recovered. MMODL / IJN: [id number] /
[2019-01-18 12:54] VITALS: BP 109/67; PULSE 103
[2019-01-18 15:53] LABS: Appearance,BF Cloudy; Nucleated Cells, Body Fluid 160 /uL; RBC, Body Fluid 1170 /uL
[2019-01-18 15:56] LABS: Mononuclear WBC,Body Fluid 87 %; Polynuclear WBC,Body Fluid 13 %; Total Cells Counted,Body Fluid 100
== END 2019-01-18 13:01 | disposition home or self-care (01) ==
LOC: ORWHC2ENDO 10:39
PROVIDERS: ATTEND Internal Medicine Critical Care Medicine
DX: J45.50 Severe persistent asthma, uncomplicated (principal); K21.9 Gastro-esophageal reflux disease without esophagitis; Z79.51 Long term (current) use of inhaled steroids; Z79.52 Long term (current) use of systemic steroids; Z79.899 Other long term (current) drug therapy; Z87.891 Personal history of nicotine dependence; Z82.5 Family history of asthma and other chronic lower respiratory diseases; Z87.01 Personal history of pneumonia (recurrent); Z91.030 Bee allergy status
CPT/HCPCS: 94640; 81025; 87798 ×3; 87496; 87498; 87529; 88108; 88305; 89050; 87252; 87502; 87634; 87070; 87205; 87116; 87102; 87206; 31624; J2001 ×3; J0461; J3010; J2704

== ENCOUNTER 2019-05-27 08:16 | Emergency (ER) | payer OTHER ==
[2019-05-27] MEDS ORDERED: SODIUM CHLORIDE 0.9% 1,000 ML IV STA ×2 (08:34)
[2019-05-27] MEDS ORDERED: PANTOPRAZOLE 40 MG/10 ML VIAL IVP STA (08:35)
[2019-05-27] MEDS ORDERED: diphenhydrAMINE 50 MG/ML 1 ML VIAL IVP STA (08:35)
[2019-05-27] MEDS ORDERED: METOCLOPRAMIDE 5 MG/ML 2 ML VIAL IVP STA (08:35)
[2019-05-27] MEDS ORDERED: ACETAMINOPHEN TAB 500 MG TAB PO STA (08:36)
--- NOTE | 2019-05-27 08:41 | ED ---
Dizziness HPI - General Chief Complaint: Dizziness Stated Complaint: Dizziness Time Seen by Provider: 05/27/19 08:26 Source: patient, RN notes reviewed, old records reviewed Mode of arrival: ambulatory Limitations: no limitations - History of Present Illness Initial Comments: 29 year female presents today for complaints of dizziness, episode of chest pain nausea and vomiting and she was at work today. She complains of a mild headache. Patient reports that she has had no fevers or chills. Patient reports that this morning before where she had breakfast. She did have 2 episodes of diarrhea. Patient reports that she did vomit today at work she did have an episode of bright red blood in it. Patient has a long history of asthma but no other syncope medical history. Denies chance of . Patient states that she has mainly a headache at this time. She reports she's had history of migraine headaches in the past but has not been evaluated by neurology or any other specialties due to this. - Related Data Home Medications Medication Instructions Recorded Confirmed Budesonide-Formot 160-4.5 Mcg 2 puff INHALATION RT-BID 05/27/19 05/27/19 [Symbicort 160-4.5 Mcg Inhaler] Previous Rx's Medication Instructions Recorded Montelukast [Singulair] 10 mg PO HS #30 tab 07/10/17 Albuterol Inhaler [Ventolin Hfa 2 puff INHALATION RT-Q6H PRN #1 10/29/18 Inhaler] inhaler Famotidine [Pepcid] 20 mg PO BID #20 tablet 05/27/19 Allergies Allergy/AdvReac Type Severity Reaction Status Date / Time bee venom protein (honey bee) Allergy Anaphylaxis Verified 05/27/19 09:01 Review of Systems ROS Statement: Those systems with pertinent positive or pertinent negative responses have been documented in the HPI. ROS Other: All systems not noted in ROS Statement are negative. Past Medical History Past Medical History: Asthma, Pneumonia Additional Past Medical History / Comment(s): BRONCHITIS, anemia History of Any Multi-Drug Resistant Organisms: None Reported Past Surgical History: Section, Tubal Ligation Additional Past Surgical History / Comment(s): c-sect x 3 Past Anesthesia/Blood Transfusion Reactions: No Reported Reaction Past Psychological History: No Psychological Hx Reported Smoking Status: Former smoker Past Alcohol Use History: Occasional Past Drug Use History: Marijuana - Past Family History Mother Family Medical History: Asthma, Thyroid Disorder Additional Family Medical History / Comment(s): cholecystitis Father Family Medical History: Unable to Obtain General Exam - General Exam Comments Initial Comments: 29-year-old female. Alert and oriented 3. No distress. Limitations: no limitations General appearance: alert, in no apparent distress Head exam: Present: atraumatic, normocephalic, normal inspection Eye exam: Present: normal appearance ENT exam: Present: normal exam, mucous membranes moist Neck exam: Present: normal inspection. Absent: tenderness, meningismus, lymphadenopathy Respiratory exam: Present: normal lung sounds bilaterally. Absent: respiratory distress, wheezes, rales, rhonchi, stridor Cardiovascular Exam: Present: regular rate, normal rhythm, normal heart sounds. Absent: systolic murmur, diastolic murmur, rubs, gallop, clicks GI/Abdominal exam: Present: soft, normal bowel sounds. Absent: distended, tenderness, guarding, rebound, rigid Extremities exam: Present: normal inspection, full ROM, normal capillary refill. Absent: tenderness, pedal edema, joint swelling, calf tenderness Back exam: Present: normal inspection Neurological exam: Present: alert, oriented X3, CN II-XII intact Psychiatric exam: Present: normal affect, normal mood Skin exam: Present: warm, dry, intact, normal color. Absent: rash Course Vital Signs 05/27/19 08:19 Temperature 98 F Pulse Rate 74 Respiratory 18 Rate Blood Pressure 118/74 O2 Sat by Pulse 99 Oximetry EKG Findings - EKG Comments: EKG Findings:: Sinus rhythm with marked sinus arrythmia. Normal EKG. Vent rate 60, VA interval 134 ms. 92 ms QRS duration. Qt/Qtc 396. Medical Decision Making - Medical Decision Making This Patient is a 29-year-old female with episode of dizziness, nausea and vomiting today was she was at work. She complained at that time she has had some chest discomfort complaints of headache. This time she has no focal physical exam findings. No neurological deficits. She otherwise appears clinically well. Patient is given IV fluids, given Tylenol, Protonix, Reglan Benadryl. Patient did have some mild epigastric tenderness. Patient reported some blood in her vomit. Discusses could likely be related to some gastritis or possibly peptic ulcer disease. Patient at this time is normal lab work, and EKG. Chest x-ray she had unremarkable. This time Patient does feel better after receiving Reglan Benadryl and Tylenol for headache. I discussed giving the Patient a work note for 2 days until she can follow-up with her primary care provider. I discussed return parameters. No questions answered. We'll start her on Pepcid for possibly peptic ulcer disease. - Lab Data Result diagrams: 05/27/19 08:42 05/27/19 08:42 Lab Results 05/27/19 05/27/19 05/27/19 Range/Units 08:42 08:42 08:42 WBC 5.2 (3.8-10.6) k/uL RBC 4.59 (3.80-5.40) m/uL Hgb 12.3 (11.4-16.0) gm/dL Hct 39.1 (34.0-46.0) % MCV 85.1 (80.0-100.0) fL MCH 26.8 (25.0-35.0) pg MCHC 31.6 (31.0-37.0) g/dL RDW 14.7 (11.5-15.5) % Plt Count 194 (150-450) k/uL Neutrophils % 63 % Lymphocytes % 26 % Monocytes % 4 % Eosinophils % 5 % Basophils % 0 % Neutrophils # 3.3 (1.3-7.7) k/uL Lymphocytes # 1.3 (1.0-4.8) k/uL Monocytes # 0.2 (0-1.0) k/uL Eosinophils # 0.3 (0-0.7) k/uL Basophils # 0.0 (0-0.2) k/uL Sodium 142 (137-145) mmol/L Potassium 3.6 (3.5-5.1) mmol/L Chloride 108 H (98-107) mmol/L Carbon Dioxide 25 (22-30) mmol/L Anion Gap 9 mmol/L BUN 10 (7-17) mg/dL Creatinine 0.60 (0.52-1.04) mg/dL Est GFR (CKD-EPI)AfAm >90 (>60 ml/min/1.73 sqM) Est GFR (CKD-EPI)NonAf >90 (>60 ml/min/1.73 sqM) Glucose 93 (74-99) mg/dL Calcium 8.7 (8.4-10.2) mg/dL Total Bilirubin 0.5 (0.2-1.3) mg/dL AST 17 (14-36) U/L ALT 19 (9-52) U/L Alkaline Phosphatase 63 (38-126) U/L Troponin I <0.012 (0.000-0.034) ng/mL Total Protein 7.0 (6.3-8.2) g/dL Albumin 4.0 (3.5-5.0) g/dL Urine Color Urine Appearance (Clear) Urine pH (5.0-8.0) Ur Specific [place] (1.001-1.035) Urine Protein (Negative) Urine Glucose (UA) (Negative) Urine Ketones (Negative) Urine Blood (Negative) Urine Nitrite (Negative) Urine Bilirubin (Negative) Urine Urobilinogen (<2.0) mg/dL Ur Leukocyte Esterase (Negative) Urine WBC (0-5) /hpf Ur Squamous Epith Cells (0-4) /hpf Urine Mucus (None) /hpf 05/27/19 Range/Units 08:42 WBC (3.8-10.6) k/uL RBC (3.80-5.40) m/uL Hgb (11.4-16.0) gm/dL Hct (34.0-46.0) % MCV (80.0-100.0) fL MCH (25.0-35.0) pg MCHC (31.0-37.0) g/dL RDW (11.5-15.5) % Plt Count (150-450) k/uL Neutrophils % % Lymphocytes % % Monocytes % % Eosinophils % % Basophils % % Neutrophils # (1.3-7.7) k/uL Lymphocytes # (1.0-4.8) k/uL Monocytes # (0-1.0) k/uL Eosinophils # (0-0.7) k/uL Basophils # (0-0.2) k/uL Sodium (137-145) mmol/L Potassium (3.5-5.1) mmol/L Chloride (98-107) mmol/L Carbon Dioxide (22-30) mmol/L Anion Gap mmol/L BUN (7-17) mg/dL Creatinine (0.52-1.04) mg/dL Est GFR (CKD-EPI)AfAm (>60 ml/min/1.73 sqM) Est GFR (CKD-EPI)NonAf (>60 ml/min/1.73 sqM) Glucose (74-99) mg/dL Calcium (8.4-10.2) mg/dL Total Bilirubin (0.2-1.3) mg/dL AST (14-36) U/L ALT (9-52) U/L Alkaline Phosphatase (38-126) U/L Troponin I (0.000-0.034) ng/mL Total Protein (6.3-8.2) g/dL Albumin (3.5-5.0) g/dL Urine Color Yellow Urine Appearance Clear (Clear) Urine pH 6.5 (5.0-8.0) Ur Specific [place] 1.034 (1.001-1.035) Urine Protein 1+ H (Negative) Urine Glucose (UA) Negative (Negative) Urine Ketones Negative (Negative) Urine Blood Negative (Negative) Urine Nitrite Negative (Negative) Urine Bilirubin Negative (Negative) Urine Urobilinogen 3.0 (<2.0) mg/dL Ur Leukocyte Esterase Negative (Negative) Urine WBC 1 (0-5) /hpf Ur Squamous Epith Cells 2 (0-4) /hpf Urine Mucus Many H (None) /hpf Disposition Clinical Impression: Episode of dizziness, Epigastric pain, Headache Disposition: HOME SELF-CARE Condition: Good Instructions (If sedation given, give patient instructions): Abdominal Pain (ED) Additional Instructions: Patient has a follow-up with your primary care physician. Return to emergency department if any alarming signs or symptoms occur. Prescriptions: Famotidine [Pepcid] 20 mg PO BID #20 tablet Is patient prescribed a controlled substance at d/c from ED?: No Referrals: Chace Meng MD [Primary Care Provider] - 1-2 days Time of Disposition: 10:23
[2019-05-27 08:54] LABS: Basophils % (A) 0 %; Eosinophils # (A) 0.3 k/uL (0-0.7); Eosinophils % (A) 5 %; HCT 39.1 % (34.0-46.0); HGB 12.3 gm/dL (11.4-16.0); Lymphocytes # (A) 1.3 k/uL (1.0-4.8); Lymphocytes % (A) 26 %; MCH 26.8 pg (25.0-35.0); MCHC 31.6 g/dL (31.0-37.0); MCV 85.1 fL (80.0-100.0); Mean Platelet Volume 9.2; Monocytes # (A) 0.2 k/uL (0-1.0); Monocytes % (A) 4 %; Neutrophils # (A) 3.3 k/uL (1.3-7.7); Neutrophils % (A) 63 %; Platelet Count 194 k/uL (150-450); RBC 4.59 m/uL (3.80-5.40); RDW 14.7 % (11.5-15.5); WBC 5.2 k/uL (3.8-10.6)
[2019-05-27 09:03] LABS: Appearance,Urine Clear (Clear); Bilirubin,Urine Negative (Negative); Blood,Urine Negative (Negative); Color,Urine Yellow; Glucose,Urine (UA) Negative (Negative); Ketones,Urine Negative (Negative); Leukocyte Esterase,Urine Negative (Negative); Mucus,Urine Many /hpf; Nitrite,Urine Negative (Negative); PH, Urine 6.5 (5.0-8.0); Protein,Urine 1+ (Negative); Specific Gravity,Urine 1.034 (1.001-1.035); Squamous Epithelial Cell,Urine 2 /hpf (0-4); WBC,Urine 1 /hpf (0-5)
[2019-05-27 09:05] LABS: ALT 19 U/L (9-52); AST 17 U/L (14-36); African American GFR (CKD) >90 (>60 ml/min/1.73 sqM); Alkaline Phosphatase 63 U/L (38-126); Anion Gap 9 mmol/L; Blood Urea Nitrogen 10 mg/dL (7-17); Calcium 8.7 mg/dL (8.4-10.2); Carbon Dioxide 25 mmol/L (22-30); Chloride 108 mmol/L (98-107); Glucose 93 mg/dL (74-99); Potassium 3.6 mmol/L (3.5-5.1); Sodium 142 mmol/L (137-145); Total Bilirubin 0.5 mg/dL (0.2-1.3)
--- NOTE | 2019-05-27 09:14 | XR ---
EXAMINATION TYPE: XR chest 2V DATE OF EXAM: 05/27/2019 COMPARISON: 10/28/2018 HISTORY: Chest pain TECHNIQUE: Frontal and lateral views of the chest are obtained. FINDINGS: There is no focal air space opacity. No evidence for pneumothorax. No pleural effusion. The cardiac silhouette size is within normal limits. The osseous structures are grossly intact. IMPRESSION: 1. No acute cardiopulmonary process.
[2019-05-27 10:38] VITALS: BP 117/68; PULSE 57; RESP 17; TEMP 98.6
== END 2019-05-27 10:38 | disposition home or self-care (01) ==
LOC: EC 08:16
DX: R42 Dizziness and giddiness (principal); R10.13 Epigastric pain; R51 Headache; R11.2 Nausea with vomiting, unspecified; R10.816 Epigastric abdominal tenderness; R07.89 Other chest pain; R19.7 Diarrhea, unspecified; J45.909 Unspecified asthma, uncomplicated; Z79.51 Long term (current) use of inhaled steroids; Z91.030 Bee allergy status; Z87.891 Personal history of nicotine dependence
CPT/HCPCS: 99284; 96374; 96375 ×2; 36415; 93005; 80053; 84484; 85025; 81001; 71046; 96361 ×2; J1200; J2765; C9113

== ENCOUNTER 2019-07-30 18:06 | Emergency (ER) | payer OTHER ==
[2019-07-30 18:17] VITALS: TEMP 98.6
[2019-07-30] MEDS ORDERED: methylPREDNISolone SOD SUCCI 125 MG/2 ML VIAL IM ONE (18:40)
[2019-07-30] MEDS ORDERED: IPRATROPIUM-ALBUTEROL 3 ML NEB INHALATION STA (18:40)
--- NOTE | 2019-07-30 18:58 | XR ---
EXAMINATION TYPE: XR chest 2V DATE OF EXAM: 07/30/2019 COMPARISON: 05/27/2019 INDICATION: Cough, asthma TECHNIQUE: Frontal and lateral views of the chest are obtained. FINDINGS: The heart size is normal. The pulmonary vasculature is normal. The lungs are clear. IMPRESSION: 1. No acute pulmonary process.
--- NOTE | 2019-07-30 19:15 | ED ---
General Adult HPI - General Chief complaint: Shortness of Breath Stated complaint: SHRUTI h/o asthma Time Seen by Provider: 07/30/19 18:18 Source: patient, RN notes reviewed Mode of arrival: ambulatory Limitations: no limitations - History of Present Illness Initial comments: 29-year-old female with a past medical history of asthma, pneumonia presents to the emergency department for a chief complaint of shortness of breath. Patient states she has had a cough and asthma exacerbation for the past 4 days. Patient states she was at work today and this is worsening. 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 States that when he gets this point she usually needs steroids. States this feels exactly similar with previous asthma exacerbations.Patient has no other complaints at this time including chest pain, abdominal pain, nausea or vomiting, headache, or visual changes. - Related Data Home Medications Medication Instructions Recorded Confirmed Budesonide-Formot 160-4.5 Mcg 2 puff INHALATION RT-BID 05/27/19 05/27/19 [Symbicort 160-4.5 Mcg Inhaler] Previous Rx's Medication Instructions Recorded Montelukast [Singulair] 10 mg PO HS #30 tab 07/10/17 Albuterol Inhaler [Ventolin Hfa 2 puff INHALATION RT-Q6H PRN #1 10/29/18 Inhaler] inhaler Famotidine [Pepcid] 20 mg PO BID #20 tablet 05/27/19 predniSONE 50 mg PO DAILY #5 tablet 07/30/19 Allergies Allergy/AdvReac Type Severity Reaction Status Date / Time bee venom protein (honey bee) Allergy Anaphylaxis Verified 07/30/19 18:17 Review of Systems ROS Statement: Those systems with pertinent positive or pertinent negative responses have been documented in the HPI. ROS Other: All systems not noted in ROS Statement are negative. Past Medical History Past Medical History: Asthma, Pneumonia Additional Past Medical History / Comment(s): BRONCHITIS, anemia History of Any Multi-Drug Resistant Organisms: None Reported Past Surgical History: Section, Tubal Ligation Additional Past Surgical History / Comment(s): c-sect x 3 Past Anesthesia/Blood Transfusion Reactions: No Reported Reaction Past Psychological History: No Psychological Hx Reported Smoking Status: Former smoker Past Alcohol Use History: Occasional Past Drug Use History: Marijuana - Past Family History Mother Family Medical History: Asthma, Thyroid Disorder Additional Family Medical History / Comment(s): cholecystitis Father Family Medical History: Unable to Obtain General Exam Limitations: no limitations General appearance: alert, in no apparent distress Head exam: Present: atraumatic, normocephalic, normal inspection Eye exam: Present: normal appearance, PERRL, EOMI. Absent: scleral icterus, conjunctival injection, periorbital swelling ENT exam: Present: normal exam, mucous membranes moist Neck exam: Present: normal inspection, full ROM. Absent: tenderness, meningismus, lymphadenopathy Respiratory exam: Present: wheezes, decreased breath sounds. Absent: respiratory distress, rales, rhonchi, stridor, accessory muscle use Cardiovascular Exam: Present: regular rate, normal rhythm, normal heart sounds. Absent: systolic murmur, diastolic murmur, rubs, gallop, clicks Neurological exam: Present: alert Psychiatric exam: Present: normal affect, normal mood Course Vital Signs 07/30/19 07/30/19 07/30/19 18:15 18:56 18:57 Temperature 98.6 F Pulse Rate 118 H 118 H Respiratory 20 18 Rate Blood Pressure 129/80 O2 Sat by Pulse 95 Oximetry 07/30/19 19:04 Temperature Pulse Rate 120 H Respiratory Rate Blood Pressure O2 Sat by Pulse Oximetry Medical Decision Making - Medical Decision Making Patient initially tachycardic however this did improve to 96 her stay. Patient has maintained 95-96 on room air. Chest x-ray was performed which showed no acute pulmonary process. Patient was given a 6 mL DuoNeb treatment and steroids. Patient had significant improvement in air movement. States she is actually feeling much better and does not have the chest tightness she has had over the past few days anymore. Patient feels comfortable being discharged home and will start steroids tomorrow. Patient is reliable and is knowledgeable about when she needs to return to the emergency department. Discussed strict return parameters. Disposition Clinical Impression: Asthma exacerbation Disposition: HOME SELF-CARE Condition: Good Instructions (If sedation given, give patient instructions): Asthma (ED) Additional Instructions: Please take steroid as directed. These were prescribed to Gabe on . Continue breathing treatments as prescribed. Follow-up with primary care in 1- 2 days. If you are having worsening symptoms or symptoms are not improving return to the emergency department. Prescriptions: predniSONE 50 mg PO DAILY #5 tablet Is patient prescribed a controlled substance at d/c from ED?: No Referrals: Chace Meng MD [Primary Care Provider] - 1-2 days Time of Disposition: 19:14
[2019-07-30 19:24] VITALS: BP 119/86; PULSE 96; RESP 20
== END 2019-07-30 19:30 | disposition home or self-care (01) ==
LOC: EC 18:06
DX: J45.901 Unspecified asthma with (acute) exacerbation (principal); Z79.51 Long term (current) use of inhaled steroids; Z91.030 Bee allergy status; Z87.891 Personal history of nicotine dependence
CPT/HCPCS: 94640; 71046; 99285; 96372; J2930

== ENCOUNTER 2019-12-19 18:00 | Emergency (ER) | payer OTHER ==
[2019-12-19 18:04] VITALS: BP 113/75; PULSE 91; TEMP 99.2
[2019-12-19 18:34] VITALS: RESP 16
--- NOTE | 2019-12-19 18:37 | XR ---
EXAMINATION TYPE: XR chest 2V DATE OF EXAM: 12/19/2019 COMPARISON: 07/30/2019 HISTORY: Cough TECHNIQUE: 2 views FINDINGS: Heart and mediastinum are normal. Lungs are clear. Diaphragm is normal. Bony thorax appears normal. IMPRESSION: Normal chest. No change.
--- NOTE | 2019-12-19 19:06 | ED ---
URI HPI - General Chief Complaint: Upper Respiratory Infection Stated Complaint: Fever/cough/SOB Time Seen by Provider: 12/19/19 18:06 Source: patient Mode of arrival: ambulatory Limitations: no limitations - History of Present Illness Initial Comments: Patient is a 29-year-old female presenting to emergency Department with complaints of a cough, body aches, headache that started today. Patient states she had a mild cough yesterday but then today she feels much worse. Patient states she did take some Tylenol prior to arrival. She states "she feels like getting hit by a truck." She denies any chest pain, shortness of breath, abdominal pain, nausea, vomiting. She does have history of mild asthma. She has no other complaints at this time. Upon arrival to the ER, vital signs are stable. - Related Data Home Medications Medication Instructions Recorded Confirmed Budesonide-Formot 160-4.5 Mcg 2 puff INHALATION RT-BID 05/27/19 05/27/19 [Symbicort 160-4.5 Mcg Inhaler] Previous Rx's Medication Instructions Recorded Montelukast [Singulair] 10 mg PO HS #30 tab 07/10/17 Albuterol Inhaler [Ventolin Hfa 2 puff INHALATION RT-Q6H PRN #1 10/29/18 Inhaler] inhaler Famotidine [Pepcid] 20 mg PO BID #20 tablet 05/27/19 predniSONE 50 mg PO DAILY #5 tablet 07/30/19 Oseltamivir [Tamiflu] 75 mg PO Q12HR #10 cap 12/19/19 Allergies Allergy/AdvReac Type Severity Reaction Status Date / Time bee venom protein (honey bee) Allergy Anaphylaxis Verified 12/19/19 18:04 Review of Systems ROS Statement: Those systems with pertinent positive or pertinent negative responses have been documented in the HPI. ROS Other: All systems not noted in ROS Statement are negative. Past Medical History Past Medical History: Asthma, Pneumonia Additional Past Medical History / Comment(s): BRONCHITIS, anemia History of Any Multi-Drug Resistant Organisms: None Reported Past Surgical History: Section, Tubal Ligation Additional Past Surgical History / Comment(s): c-sect x 3 Past Anesthesia/Blood Transfusion Reactions: No Reported Reaction Past Psychological History: No Psychological Hx Reported Smoking Status: Former smoker Past Alcohol Use History: Occasional Past Drug Use History: Marijuana - Past Family History Mother Family Medical History: Asthma, Thyroid Disorder Additional Family Medical History / Comment(s): cholecystitis Father Family Medical History: Unable to Obtain General Exam - General Exam Comments Initial Comments: GENERAL: Well-appearing, well-nourished and in no acute distress. HEAD: Atraumatic, normocephalic. EYES: Pupils equal round and reactive to light, extraocular movements intact, sclera anicteric, conjunctiva are normal. ENT: TMs normal, nares patent, oropharynx clear without exudates. Moist mucous membranes. NECK: Normal range of motion, supple without lymphadenopathy or JVD. LUNGS: Breath sounds clear to auscultation bilaterally and equal. No wheezes rales or rhonchi. HEART: Regular rate and rhythm without murmurs, rubs or gallops. ABDOMEN: Soft, nontender, normoactive bowel sounds. No guarding, no rebound. No masses appreciated. : Deferred EXTREMITIES: Normal range of motion, no pitting or edema. No clubbing or cyanosis. NEUROLOGICAL: Normal speech, normal gait. PSYCH: Normal mood, normal affect. SKIN: Warm, Dry, normal turgor, no rashes or lesions noted. Limitations: no limitations Course Vital Signs 12/19/19 12/19/19 18:02 18:32 Temperature 99.2 F Pulse Rate 91 Respiratory 20 16 Rate Blood Pressure 113/75 O2 Sat by Pulse 98 Oximetry Medical Decision Making - Medical Decision Making Patient is a 29-year-old female presenting with flulike symptoms x 1 day. Vital signs are stable. Exam is unremarkable. Chest x-ray shows no acute findings. Patient is influenza positive for type B. She wishes to start Tamiflu. She'll continue with Motrin. Patient stable for discharge at this time. Patient is in agreement with this plan of care. Return parameters were discussed with the patient she verbalized understanding. - Lab Data Lab Results 12/19/19 Range/Units 18:26 Influenza Type A RNA Not Detected (Not Detectd) Influenza Type B (PCR) Detected H (Not Detectd) Disposition Clinical Impression: Influenza Disposition: HOME SELF-CARE Condition: Stable Instructions (If sedation given, give patient instructions): Influenza (ED) Additional Instructions: Please return to the Emergency Department if symptoms worsen or any other concerns. Take Tamiflu as prescribed. Continue with Motrin and increase fluid intake. Follow-up with PCP as needed. Prescriptions: Oseltamivir [Tamiflu] 75 mg PO Q12HR #10 cap Is patient prescribed a controlled substance at d/c from ED?: No Referrals: Chace Meng MD [Primary Care Provider] - 1-2 days
== END 2019-12-19 19:12 | disposition home or self-care (01) ==
LOC: EC 18:00
DX: J10.1 Influenza due to other identified influenza virus with other respiratory manifestations (principal); J45.909 Unspecified asthma, uncomplicated; Z87.891 Personal history of nicotine dependence; Z79.899 Other long term (current) drug therapy; Z91.030 Bee allergy status
CPT/HCPCS: 71046; 87502; 99283

== ENCOUNTER 2020-09-21 17:04 | Emergency (ER) | payer OTHER ==
[2020-09-21 17:20] VITALS: BP 128/70; PULSE 95; RESP 20; TEMP 98.9
--- NOTE | 2020-09-21 17:58 | XR ---
EXAMINATION TYPE: XR soft tissue neck DATE OF EXAM: 09/21/2020 COMPARISON: NONE HISTORY: Cookie stuck in the throat TECHNIQUE: 2 views FINDINGS: Epiglottis is normal. Subglottic trachea appears normal. Prevertebral soft tissues appear n ormal. I see no sign of a radiopaque foreign body. IMPRESSION: Negative exam. No foreign body seen.
[2020-09-21] MEDS ORDERED: GLUCAGON 1 MG/ML VIAL IM STA (18:27)
--- NOTE | 2020-09-21 18:34 | ED ---
Skin/Abscess/FB HPI - General Chief complaint: Skin/Abscess/Foreign Body Stated complaint: food stuck in throat Time Seen by Provider: 09/21/20 17:23 Source: patient Mode of arrival: ambulatory Limitations: no limitations - History of Present Illness Initial comments: Patient is a 30-year-old female presenting to the emergency Department with complaints of a possible food stuck in her throat. Patient states she had some cookies at approximately 11 AM today and about an hour later she felt some scratchiness on her throat. The patient states ever since then she has been trying to cough and feels like there is a piece of the cookie stuck in her throat. She denies any trouble breathing, no acute distress. She states she has been able to swallow liquids without difficulty. She states she tried a bologna sandwich a few hours ago and was able to swallow 2 bites but felt it was difficult. She also tried drinking pop. She states she's never had this issue in the past. She denies any recent fever, chills, no chest pain or shortness of breath. She has no further complaints at this time. - Related Data Home Medications Medication Instructions Recorded Confirmed Ibuprofen [Motrin Ib] 600 mg PO Q8H PRN 09/21/20 09/21/20 Previous Rx's Medication Instructions Recorded Metoclopramide [Reglan] 10 mg PO TID PRN #10 tab 09/21/20 Allergies Allergy/AdvReac Type Severity Reaction Status Date / Time bee venom protein (honey bee) Allergy Anaphylaxis Verified 09/21/20 18:11 Review of Systems ROS Statement: Those systems with pertinent positive or pertinent negative responses have been documented in the HPI. ROS Other: All systems not noted in ROS Statement are negative. Past Medical History Past Medical History: Asthma, Pneumonia Additional Past Medical History / Comment(s): BRONCHITIS, anemia History of Any Multi-Drug Resistant Organisms: None Reported Past Surgical History: Section, Tubal Ligation Additional Past Surgical History / Comment(s): c-sect x 3 Past Anesthesia/Blood Transfusion Reactions: No Reported Reaction Past Psychological History: No Psychological Hx Reported Smoking Status: Former smoker Past Alcohol Use History: Rare Past Drug Use History: Marijuana - Past Family History Mother Family Medical History: Asthma, Thyroid Disorder Additional Family Medical History / Comment(s): cholecystitis Father Family Medical History: Unable to Obtain General Exam - General Exam Comments Initial Comments: GENERAL: Patient is well-developed and well-nourished. Patient is nontoxic and in no acute distress. HEAD: Atraumatic, normocephalic. EYES: Pupils equal round and reactive to light, extraocular movements intact, sclera anicteric, conjunctiva are normal. Eyelids were unremarkable. ENT: TMs normal, nares patent, oropharynx clear without exudates. Moist mucous membranes. NECK: Normal range of motion, supple without lymphadenopathy or JVD. LUNGS: Unlabored respirations. Breath sounds clear to auscultation bilaterally and equal. No wheezes rales or rhonchi. HEART: Regular rate and rhythm without murmurs, rubs or gallops. ABDOMEN: Soft, nontender, normoactive bowel sounds. No guarding, no rebound. No masses appreciated. : Deferred MUSCULOSKELETAL: Normal extremities with adequate strength and normal range of motion, no pitting or edema. No clubbing or cyanosis. NEUROLOGICAL: Patient is alert and oriented x 3. Motor and sensory are also intact. Cranial nerves II through XII grossly intact. Symmetrical smile. Normal speech, normal gait. PSYCH: Normal mood, normal affect. SKIN: Warm, Dry, normal turgor, no rashes or lesions noted. Limitations: no limitations Course Vital Signs 09/21/20 17:15 Temperature 98.9 F Pulse Rate 95 Respiratory 20 Rate Blood Pressure 128/70 O2 Sat by Pulse 100 Oximetry Medical Decision Making - Medical Decision Making Patient is a 30-year-old female here with feeling like a piece of cookie stuck in her throat that she ate at approximately 11 AM today. She is in no acute distress, her exam is unremarkable. She is able to swallow liquids without difficulty. I did do a soft tissue neck x-ray which reveals no acute process. I did give patient some glucagon today. She is also started to continue drink lots of fluids, carbonated beverages. She is stable for discharge. Return parameters were discussed with the patient and she verbalized understanding. Disposition Clinical Impression: Food sticks on swallowing Disposition: HOME SELF-CARE Condition: Stable Instructions (If sedation given, give patient instructions): Normal Exam (ED) Additional Instructions: Please return to the Emergency Department if symptoms worsen or any other concerns. Continue to drink a lot of fluids, carbonated beverages are great. Hot soups, hot liquids. Script for reglan for any nausea, spasm. Follow-up with your regular doctor if symptoms persist. Prescriptions: Metoclopramide [Reglan] 10 mg PO TID PRN #10 tab PRN Reason: GERD Is patient prescribed a controlled substance at d/c from ED?: No Referrals: Chace Meng MD [Primary Care Provider] - 1-2 days
== END 2020-09-21 19:00 | disposition home or self-care (01) ==
LOC: EC 17:04
DX: R13.10 Dysphagia, unspecified (principal); Z91.030 Bee allergy status; Z87.891 Personal history of nicotine dependence
CPT/HCPCS: 70360; 99283; 96372; J1610

== ENCOUNTER 2021-03-18 06:10 | Emergency (ER) | payer OTHER ==
[2021-03-18 06:17] VITALS: BP 139/78; PULSE 97; RESP 18; TEMP 98
[2021-03-18] MEDS ORDERED: ACET/COD 300 MG/30 MG STARTER PACK 6 TAB BTL PO STA (06:28)
[2021-03-18] MEDS ORDERED: PENICILLIN VK 500MG STARTER 4 TAB BTL PO STA (06:28)
--- NOTE | 2021-03-18 06:29 | ED ---
General Adult HPI - General Chief complaint: Dental/Oral Stated complaint: Dental Pain Time Seen by Provider: 03/18/21 06:19 Source: patient Mode of arrival: ambulatory Limitations: no limitations - History of Present Illness Initial comments: 31-year-old female with a past medical history of asthma, pneumonia presents for dental pain. Patient states she has left-sided lower dental pain that started last night. She states that a month ago her child hit her head against her tooth and she thinks that it may have cracked it. Patient reports that she did take Motrin last night but it did not seem to help.Patient has no other complaints at this time including shortness of breath, chest pain, abdominal pain, nausea or vomiting, headache, or visual changes. - Related Data Home Medications Medication Instructions Recorded Confirmed Ibuprofen [Motrin Ib] 600 mg PO Q8H PRN 09/21/20 09/21/20 Previous Rx's Medication Instructions Recorded Metoclopramide [Reglan] 10 mg PO TID PRN #10 tab 09/21/20 Penicillin V Potassium [Pen Vee K] 500 mg PO Q6H 10 Days #40 tablet 03/18/21 Allergies Allergy/AdvReac Type Severity Reaction Status Date / Time bee venom protein (honey bee) Allergy Anaphylaxis Verified 03/18/21 06:17 Review of Systems ROS Statement: Those systems with pertinent positive or pertinent negative responses have been documented in the HPI. ROS Other: All systems not noted in ROS Statement are negative. Past Medical History Past Medical History: Asthma, Pneumonia Additional Past Medical History / Comment(s): BRONCHITIS, anemia History of Any Multi-Drug Resistant Organisms: None Reported Past Surgical History: Section, Tubal Ligation Additional Past Surgical History / Comment(s): c-sect x 3 Past Anesthesia/Blood Transfusion Reactions: No Reported Reaction Past Psychological History: No Psychological Hx Reported Smoking Status: Current every day smoker Past Alcohol Use History: Rare Past Drug Use History: Marijuana - Past Family History Mother Family Medical History: Asthma, Thyroid Disorder Additional Family Medical History / Comment(s): cholecystitis Father Family Medical History: Unable to Obtain General Exam Limitations: no limitations General appearance: alert, in no apparent distress Head exam: Present: atraumatic Eye exam: Present: normal appearance, PERRL, EOMI. Absent: scleral icterus, conjunctival injection, periorbital swelling ENT exam: Present: normal exam, mucous membranes moist. Absent: normal orop harynx (Patient has poor. Patient does have deterioration of tooth 17, no abscess) Neck exam: Present: normal inspection, full ROM. Absent: tenderness, meningismus, lymphadenopathy Respiratory exam: Present: normal lung sounds bilaterally. Absent: respiratory distress, wheezes, rales, rhonchi, stridor Cardiovascular Exam: Present: regular rate, normal rhythm, normal heart sounds. Absent: systolic murmur, diastolic murmur, rubs, gallop, clicks Course Vital Signs 03/18/21 06:14 Temperature 98 F Pulse Rate 97 Respiratory 18 Rate Blood Pressure 139/78 O2 Sat by Pulse 100 Oximetry Medical Decision Making - Medical Decision Making Patient well-appearing. She does have deterioration of 217. No abscess. No drooling or tripoding. No facial edema or trismus. No sublingual edema. Patient was given penicillin and directed to take Motrin. If pain is severe take Tylenol 3. No driving. She will follow up with the dentist that she is aware she needs to do. She'll return here for any worsening symptoms. Disposition Clinical Impression: Pain, dental Disposition: HOME SELF-CARE Condition: Good Instructions (If sedation given, give patient instructions): Toothache (ED) Additional Instructions: Please take Motrin for pain. If pain is severe take Tylenol [address] operate machinery while taking this. Take antibiotic 4 times a day for 10 days as directed. Follow-up with dentist. Return to the emergency room for any worsening symptoms. Prescriptions: Penicillin V Potassium [Pen Vee K] 500 mg PO Q6H 10 Days #40 tablet Is patient prescribed a controlled substance at d/c from ED?: No Referrals: Mario Briceño MD [Primary Care Provider] - 1-2 days Time of Disposition: 06:28
== END 2021-03-18 06:48 | disposition home or self-care (01) ==
LOC: EC 06:10
DX: K08.89 Other specified disorders of teeth and supporting structures (principal); J45.909 Unspecified asthma, uncomplicated; F17.200 Nicotine dependence, unspecified, uncomplicated; Z91.030 Bee allergy status
CPT/HCPCS: 99282

== ENCOUNTER → 2021-03-21 | Outpatient (CLI) | payer OTHER ==
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
== END | disposition home or self-care (01) ==
LOC: RADXRMAIN 10:04
PROVIDERS: ATTEND Physician Assistant
DX: R10.0 Acute abdomen (principal)
CPT/HCPCS: 74018

== ENCOUNTER 2021-12-05 19:07 | Emergency (ER) | payer OTHER ==
[2021-12-05 19:50] VITALS: BP 121/79; PULSE 81; RESP 16; TEMP 97.7
[2021-12-05] MEDS ORDERED: KETOROLAC 15 MG/ML 1 ML VIAL IM STA (20:41)
[2021-12-05] MEDS ORDERED: methocarbamoL 750 MG TAB PO STA (20:41)
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
== END 2021-12-05 22:38 | disposition home or self-care (01) ==
LOC: EC 19:07
DX: M79.18 Myalgia, other site (principal); Z91.030 Bee allergy status; J45.909 Unspecified asthma, uncomplicated; F17.200 Nicotine dependence, unspecified, uncomplicated; V89.2XXA Person injured in unspecified motor-vehicle accident, traffic, initial encounter
CPT/HCPCS: 73030; 71046; 72128; 72125; 72131; 70450; 99284; 96372; J1885

== ENCOUNTER 2022-05-04 15:09 | Emergency (ER) | payer OTHER ==
[2022-05-04 15:13] VITALS: TEMP 98
[2022-05-04] MEDS ORDERED: methylPREDNISolone SOD SUCCI 125 MG/2 ML VIAL IV STA (15:17)
[2022-05-04] MEDS ORDERED: IPRATROPIUM-ALBUTEROL 3 ML NEB INHALATION STA (15:17)
[2022-05-04] MEDS ORDERED: SODIUM CHLORIDE 0.9% 500 ML 500 ML IV STA (15:17)
--- NOTE | 2022-05-04 16:22 | XR ---
EXAMINATION TYPE: XR chest 2V DATE OF EXAM: 05/04/2022 COMPARISON: 12/05/2021 HISTORY: Short of breath TECHNIQUE: FINDINGS: Heart and mediastinum are normal. Lungs are clear. Diaphragm is normal. Bony thorax appears normal IMPRESSION: Normal chest. No change.
--- NOTE | 2022-05-04 16:59 | ED ---
SOB HPI - General Chief Complaint: Shortness of Breath Stated Complaint: SHRUTI Time Seen by Provider: 05/04/22 15:14 Source: patient Mode of arrival: ambulatory Limitations: no limitations - History of Present Illness Initial Comments: Patient is a 32-year-old female with history of asthma presenting with chief complaint of shortness of breath. Patient states symptoms have been ongoing since yesterday. She tried using her albuterol inhaler and Symbicort inhaler, but she has had no relief. Patient states that she receives steroid injections from Dr. Coy every other month, however she missed her injection last month. She admits to coughing and wheezing. She denies any recent illness. 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 She admits to some chest tightness. She denies any abdominal pain, nausea, vomiting, chest pain, swelling of the lips or face, diarrhea, hematochezia, melena, congestion, sore throat, ear pain, sinus pain, fever, chills, numbness, tingling, weakness. - Related Data Home Medications Medication Instructions Recorded Confirmed Ibuprofen [Motrin Ib] 600 mg PO Q8H PRN 09/21/20 09/21/20 Previous Rx's Medication Instructions Recorded Metoclopramide [Reglan] 10 mg PO TID PRN #10 tab 09/21/20 Penicillin V Potassium [Pen Vee K] 500 mg PO Q6H 10 Days #40 tablet 03/18/21 methocarbamoL [Robaxin-750] 750 mg PO BID PRN 3 Days #6 tablet 12/05/21 Allergies Allergy/AdvReac Type Severity Reaction Status Date / Time bee venom protein (honey bee) Allergy Anaphylaxis Verified 05/04/22 15:13 Review of Systems ROS Statement: Those systems with pertinent positive or pertinent negative responses have been documented in the HPI. ROS Other: All systems not noted in ROS Statement are negative. Past Medical History Past Medical History: Asthma, Pneumonia Additional Past Medical History / Comment(s): BRONCHITIS, anemia History of Any Multi-Drug Resistant Organisms: None Reported Past Surgical History: Section, Tubal Ligation Additional Past Surgical History / Comment(s): c-sect x 3 Past Anesthesia/Blood Transfusion Reactions: No Reported Reaction Past Psychological History: No Psychological Hx Reported Smoking Status: Current every day smoker Past Alcohol Use History: Rare Past Drug Use History: Marijuana - Past Family History Mother Family Medical History: Asthma, Thyroid Disorder Additional Family Medical History / Comment(s): cholecystitis Father Family Medical History: Unable to Obtain General Exam Limitations: no limitations General appearance: alert, in distress (Patient is audibly wheezing and short of breath) Head exam: Present: atraumatic, normocephalic, normal inspection Eye exam: Present: normal appearance, EOMI. Absent: scleral icterus, periorbital swelling Neck exam: Present: normal inspection Respiratory exam: Present: respiratory distress, wheezes, accessory muscle use. Absent: rales, rhonchi, stridor Cardiovascular Exam: Present: regular rate, normal rhythm, normal heart sounds. Absent: systolic murmur, diastolic murmur, rubs, gallop, clicks Neurological exam: Present: alert, oriented X3, CN II-XII intact Psychiatric exam: Present: normal affect, normal mood Skin exam: Present: warm, dry, intact, normal color. Absent: rash Course Vital Signs 05/04/22 05/04/22 05/04/22 15:10 15:32 15:46 Temperature 98.0 F Pulse Rate 95 96 92 Respiratory 24 Rate Blood Pressure 125/77 O2 Sat by Pulse 99 Oximetry 05/04/22 17:29 Temperature Pulse Rate 89 Respiratory 20 Rate Blood Pressure 130/78 O2 Sat by Pulse 98 Oximetry Medical Decision Making - Medical Decision Making Patient is a 32-year-old female with history of asthma presenting for treatment of acute asthma exacerbation that started yesterday. On examination patient is audibly wheezing and clearly using accessory muscles. Diffuse wheezes are heard on auscultation. Patient is given Solu-Medrol and DuoNeb. She reports improvement in her symptoms. She is negative for coronavirus and influenza. Chest x-rays unremarkable. Patient states she has an appointment with Dr. Coy tomorrow. I offered her a Medrol Dosepak, she declined stating that she would rather wait until her appointment with Dr. Coy. Patient has adequate albuterol inhalers and Symbicort inhalers at home. Follow-up with your scheduled appointment. Report back to ER if any new or worsening symptoms. Discussed return parameters answered all questions. Patient conveyed verbal understanding and agreed to the plan. I discussed this case with my attending Dr. Amanda. - Lab Data Lab Results 05/04/22 05/04/22 Range/Units 16:10 16:11 Coronavirus (PCR) Not Detected (Not Detectd) Influenza Type A RNA Not Detected (Not Detectd) Influenza Type B (PCR) Not Detected (Not Detectd) Disposition Clinical Impression: Asthma with acute exacerbation Disposition: HOME SELF-CARE Condition: Good Instructions (If sedation given, give patient instructions): Asthma (ED) Additional Instructions: Follow-up at your appointment with Dr. Coy tomorrow. Report back to ER with any new or worsening symptoms. Is patient prescribed a controlled substance at d/c from ED?: No Referrals: Ruy Coy DO [Doctor of Osteopathic Medicine] - 1-2 days Time of Disposition: 16:59
[2022-05-04 17:29] VITALS: BP 130/78; PULSE 89; RESP 20
== END 2022-05-04 17:30 | disposition home or self-care (01) ==
LOC: EC 15:09
DX: J45.901 Unspecified asthma with (acute) exacerbation (principal); F17.200 Nicotine dependence, unspecified, uncomplicated; F12.90 Cannabis use, unspecified, uncomplicated; Z91.030 Bee allergy status; Z79.82 Long term (current) use of aspirin; Z79.899 Other long term (current) drug therapy; Z20.822 Contact with and (suspected) exposure to COVID-19
CPT/HCPCS: 94640; 87502; 87635; 71046; 99285; 96374; 96361 ×2; J2930

== ENCOUNTER 2022-06-04 09:52 | Emergency (ER) | payer OTHER ==
[2022-06-04 10:06] VITALS: PULSE 88
[2022-06-04] MEDS ORDERED: methylPREDNISolone SOD SUCCI 125 MG/2 ML VIAL IV STA (11:28)
--- NOTE | 2022-06-04 11:45 | XR ---
EXAMINATION TYPE: XR chest 2V DATE OF EXAM: 06/04/2022 COMPARISON: 05/04/2022 INDICATION: Chest pain TECHNIQUE: Frontal and lateral views of the chest are obtained. FINDINGS: The heart size is normal. The pulmonary vasculature is normal. The lungs are clear. IMPRESSION: 1. No acute pulmonary process.
--- NOTE | 2022-06-04 11:48 | ED ---
General Adult HPI - General Chief complaint: Chest Pain Stated complaint: chest pains Time Seen by Provider: 06/04/22 11:11 Source: patient, RN notes reviewed Mode of arrival: ambulatory Limitations: no limitations - History of Present Illness Initial comments: This a 32-year-old female presents emergency Department chief complaint of chest discomfort. Patient states she felt some tightness in his chest steroids she was at work she states his symptoms are improving since she has left her work environment. She does have underlying asthma and received steroid injection 2 days ago. Patient states initially helped but states she has tightness again. Patient has no history. Disease no history of PE or DVT. Patient complains of headaches no focal weakness no nausea vomiting currently no reported fever. - Related Data Home Medications Medication Instructions Recorded Confirmed Albuterol Inhaler [Ventolin Hfa 2 puff INHALATION RT-Q6H PRN 06/04/22 06/04/22 Inhaler] Budesonide-Formot 160-4.5 Mcg 2 puff INHALATION RT-BID 06/04/22 06/04/22 [Symbicort 160-4.5 Mcg Inhaler] Ipratropium-Albuterol Nebulize 3 ml INHALATION RT-DAILY 06/04/22 06/04/22 [Duoneb 0.5 mg-3 mg/3 ml Soln] Montelukast Sodium [Singulair] 10 mg PO DAILY 06/04/22 06/04/22 Previous Rx's Medication Instructions Recorded predniSONE 50 mg PO DAILY #4 tab 06/04/22 Allergies Allergy/AdvReac Type Severity Reaction Status Date / Time bee venom protein (honey bee) Allergy Anaphylaxis Verified 06/04/22 12:11 Review of Systems ROS Statement: Those systems with pertinent positive or pertinent negative responses have been documented in the HPI. ROS Other: All systems not noted in ROS Statement are negative. Past Medical History Past Medical History: Asthma, Pneumonia Additional Past Medical History / Comment(s): BRONCHITIS, anemia History of Any Multi-Drug Resistant Organisms: None Reported Past Surgical History: Section, Tubal Ligation Additional Past Surgical History / Comment(s): c-sect x 3 Past Anesthesia/Blood Transfusion Reactions: No Reported Reaction Past Psychological History: No Psychological Hx Reported Smoking Status: Current every day smoker Past Alcohol Use History: Rare Past Drug Use History: Marijuana - Past Family History Mother Family Medical History: Asthma, Thyroid Disorder Additional Family Medical History / Comment(s): cholecystitis Father Family Medical History: Unable to Obtain General Exam Limitations: no limitations General appearance: alert, in no apparent distress Head exam: Present: atraumatic, normocephalic, normal inspection Eye exam: Present: normal appearance, PERRL, EOMI. Absent: scleral icterus, conjunctival injection, periorbital swelling ENT exam: Present: normal exam, mucous membranes moist Neck exam: Present: normal inspection, full ROM. Absent: tenderness, meningismus, lymphadenopathy Respiratory exam: Present: normal lung sounds bilaterally. Absent: respiratory distress, wheezes, rales, rhonchi, stridor Cardiovascular Exam: Present: regular rate, normal rhythm, normal heart sounds. Absent: systolic murmur, diastolic murmur, rubs, gallop, clicks Neurological exam: Present: alert, oriented X3, CN II-XII intact, reflexes normal. Absent: motor sensory deficit Skin exam: Present: warm, dry, intact, normal color. Absent: rash Course Vital Signs 06/04/22 10:04 Temperature 98.9 F Pulse Rate 88 Respiratory 20 Rate Blood Pressure 119/80 O2 Sat by Pulse 99 Oximetry Medical Decision Making - Medical Decision Making 32-year-old presented for chest tightness. Patient for workup including labs, chest x-ray with no acute findings. Patient does feel improved after IV steroids have a history of asthma. Patient we continued on steroids and asked 4 days. Patient refuses plan will follow-up return parameters were discussed. - Lab Data Result diagrams: 06/04/22 12:01 06/04/22 12:01 Lab Results 06/04/22 06/04/22 06/04/22 Range/Units 12:01 12:01 12:01 WBC 3.8 (3.8-10.6) k/uL RBC 4.23 (3.80-5.40) m/uL Hgb 12.4 (11.4-16.0) gm/dL Hct 37.6 (34.0-46.0) % MCV 89.0 (80.0-100.0) fL MCH 29.4 (25.0-35.0) pg MCHC 33.1 (31.0-37.0) g/dL RDW 14.4 (11.5-15.5) % Plt Count 182 (150-450) k/uL MPV 9.1 Neutrophils % 77 % Lymphocytes % 10 % Monocytes % 6 % Eosinophils % 4 % Basophils % 1 % Neutrophils # 3.0 (1.3-7.7) k/uL Lymphocytes # 0.4 L (1.0-4.8) k/uL Monocytes # 0.3 (0-1.0) k/uL Eosinophils # 0.1 (0-0.7) k/uL Basophils # 0.0 (0-0.2) k/uL PT 10.2 (9.0-12.0) sec INR 0.9 (<1.2) D-Dimer <0.17 (<0.60) mg/L FEU Sodium 139 (137-145) mmol/L Potassium 3.8 (3.5-5.1) mmol/L Chloride 102 (98-107) mmol/L Carbon Dioxide 24 (22-30) mmol/L Anion Gap 13 mmol/L BUN 11 (7-17) mg/dL Creatinine 0.65 (0.52-1.04) mg/dL Est GFR (CKD-EPI)AfAm >90 (>60 ml/min/1.73 sqM) Est GFR (CKD-EPI)NonAf >90 (>60 ml/min/1.73 sqM) Glucose 82 (74-99) mg/dL Calcium 9.0 (8.4-10.2) mg/dL Magnesium 1.9 (1.6-2.3) mg/dL Total Bilirubin 0.3 (0.2-1.3) mg/dL AST 24 (14-36) U/L ALT 13 (4-34) U/L Alkaline Phosphatase 73 (38-126) U/L Troponin I (0.000-0.034) ng/mL Total Protein 7.5 (6.3-8.2) g/dL Albumin 4.6 (3.5-5.0) g/dL 06/04/22 Range/Units 12:01 WBC (3.8-10.6) k/uL RBC (3.80-5.40) m/uL Hgb (11.4-16.0) gm/dL Hct (34.0-46.0) % MCV (80.0-100.0) fL MCH (25.0-35.0) pg MCHC (31.0-37.0) g/dL RDW (11.5-15.5) % Plt Count (150-450) k/uL MPV Neutrophils % % Lymphocytes % % Monocytes % % Eosinophils % % Basophils % % Neutrophils # (1.3-7.7) k/uL Lymphocytes # (1.0-4.8) k/uL Monocytes # (0-1.0) k/uL Eosinophils # (0-0.7) k/uL Basophils # (0-0.2) k/uL PT (9.0-12.0) sec INR (<1.2) D-Dimer (<0.60) mg/L FEU Sodium (137-145) mmol/L Potassium (3.5-5.1) mmol/L Chloride (98-107) mmol/L Carbon Dioxide (22-30) mmol/L Anion Gap mmol/L BUN (7-17) mg/dL Creatinine (0.52-1.04) mg/dL Est GFR (CKD-EPI)AfAm (>60 ml/min/1.73 sqM) Est GFR (CKD-EPI)NonAf (>60 ml/min/1.73 sqM) Glucose (74-99) mg/dL Calcium (8.4-10.2) mg/dL Magnesium (1.6-2.3) mg/dL Total Bilirubin (0.2-1.3) mg/dL AST (14-36) U/L ALT (4-34) U/L Alkaline Phosphatase (38-126) U/L Troponin I <0.012 (0.000-0.034) ng/mL Total Protein (6.3-8.2) g/dL Albumin (3.5-5.0) g/dL Disposition Clinical Impression: Asthma, Atypical chest pain Disposition: HOME SELF-CARE Condition: Stable Instructions (If sedation given, give patient instructions): Chest Pain (ED) Additional Instructions: Please return to the Emergency Department if symptoms worsen or any other concerns. Prescriptions: predniSONE 50 mg PO DAILY #4 tab Is patient prescribed a controlled substance at d/c from ED?: No Referrals: None,Stated [Primary Care Provider] - 1-2 days Time of Disposition: 14:02
[2022-06-04 12:18] LABS: Basophils % (A) 1 %; Eosinophils # (A) 0.1 k/uL (0-0.7); Eosinophils % (A) 4 %; HCT 37.6 % (34.0-46.0); HGB 12.4 gm/dL (11.4-16.0); Lymphocytes # (A) 0.4 k/uL (1.0-4.8); Lymphocytes % (A) 10 %; MCH 29.4 pg (25.0-35.0); MCHC 33.1 g/dL (31.0-37.0); Mean Platelet Volume 9.1; Monocytes # (A) 0.3 k/uL (0-1.0); Monocytes % (A) 6 %; Neutrophils % (A) 77 %; Platelet Count 182 k/uL (150-450); RBC 4.23 m/uL (3.80-5.40); RDW 14.4 % (11.5-15.5); WBC 3.8 k/uL (3.8-10.6)
[2022-06-04 12:32] LABS: ALT 13 U/L (4-34); AST 24 U/L (14-36); African American GFR (CKD) >90 (>60 ml/min/1.73 sqM); Albumin 4.6 g/dL (3.5-5.0); Alkaline Phosphatase 73 U/L (38-126); Anion Gap 13 mmol/L; Blood Urea Nitrogen 11 mg/dL (7-17); Carbon Dioxide 24 mmol/L (22-30); Chloride 102 mmol/L (98-107); Glucose 82 mg/dL (74-99); Magnesium 1.9 mg/dL (1.6-2.3); Non-African American GFR(CKD) >90 (>60 ml/min/1.73 sqM); Potassium 3.8 mmol/L (3.5-5.1); Sodium 139 mmol/L (137-145); Total Bilirubin 0.3 mg/dL (0.2-1.3); Total Protein 7.5 g/dL (6.3-8.2)
[2022-06-04 12:49] LABS: INR 0.9 (<1.2); Prothrombin Time 10.2 sec (9.0-12.0)
[2022-06-04 14:12] VITALS: BP 134/78; RESP 18; TEMP 98.2
== END 2022-06-04 14:10 | disposition home or self-care (01) ==
LOC: EC 09:52
DX: J45.909 Unspecified asthma, uncomplicated (principal); F17.200 Nicotine dependence, unspecified, uncomplicated; Z91.030 Bee allergy status
CPT/HCPCS: 36415; 93005; 85379; 80053; 83735; 84484; 85025; 85610; 71046; 99285; 96374; J2930

== ENCOUNTER 2023-02-03 13:06 | Emergency (ER) | payer OTHER ==
[2023-02-03 13:12] VITALS: BP 135/78; TEMP 97.7
[2023-02-03] MEDS ORDERED: methylPREDNISolone SOD SUCCI 125 MG/2 ML VIAL IM ONE (14:40)
[2023-02-03] MEDS ORDERED: IPRATROPIUM-ALBUTEROL 3 ML NEB INHALATION STA (14:40)
--- NOTE | 2023-02-03 14:57 | XR ---
EXAMINATION TYPE: XR chest 2V DATE OF EXAM: 02/03/2023 COMPARISON: 06/04/2022 HISTORY: 32 year-old female shortness of breath TECHNIQUE: PA and lateral views FINDINGS: The cardiomediastinal silhouette, aorta, and pulmonary vasculature are within normal limits. Lungs an d pleural spaces are clear. IMPRESSION: No acute cardiopulmonary process.
[2023-02-03 15:07] VITALS: PULSE 96
--- NOTE | 2023-02-03 15:45 | ED ---
General Adult HPI - General Chief complaint: Shortness of Breath Stated complaint: sob Time Seen by Provider: 02/03/23 14:12 Source: patient, RN notes reviewed Mode of arrival: ambulatory Limitations: no limitations - History of Present Illness Initial comments: 32-year-old female presents emergency Department chief complaint shortness breath. Patient states she's been out of her Symbicort for 5 days. Patient states that she's been having increasing shortness of breath she's been using her inhaler more frequent. She has a dry cough no fevers or chills or nausea vomiting diarrhea constipation or associated symptoms. - Related Data Home Medications Medication Instructions Recorded Confirmed Albuterol Inhaler [Ventolin Hfa 2 puff INHALATION RT-Q6H PRN 06/04/22 06/04/22 Inhaler] Ipratropium-Albuterol Nebulize 3 ml INHALATION RT-DAILY 06/04/22 06/04/22 [Duoneb 0.5 mg-3 mg/3 ml Soln] Montelukast Sodium [Singulair] 10 mg PO DAILY 06/04/22 06/04/22 Previous Rx's Medication Instructions Recorded predniSONE 50 mg PO DAILY #4 tab 06/04/22 Albuterol Inhaler [Ventolin Hfa 1 - 2 puff INHALATION Q6H PRN #1 02/03/23 Inhaler] each Budesonide-Formot 160-4.5 Mcg 2 puff INHALATION RT-BID #1 each 02/03/23 [Symbicort 160-4.5 Mcg Inhaler] predniSONE 50 mg PO DAILY #5 tab 02/03/23 Allergies Allergy/AdvReac Type Severity Reaction Status Date / Time bee venom protein (honey bee) Allergy Anaphylaxis Verified 02/03/23 13:12 Review of Systems ROS Statement: Those systems with pertinent positive or pertinent negative responses have been documented in the HPI. ROS Other: All systems not noted in ROS Statement are negative. Past Medical History Past Medical History: Asthma, Pneumonia Additional Past Medical History / Comment(s): BRONCHITIS, anemia History of Any Multi-Drug Resistant Organisms: None Reported Past Surgical History: Section, Tubal Ligation Additional Past Surgical History / Comment(s): c-sect x 3 Past Anesthesia/Blood Transfusion Reactions: No Reported Reaction Past Psychological History: No Psychological Hx Reported Smoking Status: Current every day smoker Past Alcohol Use History: Rare Past Drug Use History: Marijuana - Past Family History Mother Family Medical History: Asthma, Thyroid Disorder Additional Family Medical History / Comment(s): cholecystitis Father Family Medical History: Unable to Obtain General Exam Limitations: no limitations General appearance: alert, in no apparent distress Head exam: Present: atraumatic, normocephalic, normal inspection Eye exam: Present: normal appearance, PERRL, EOMI. Absent: scleral icterus, conjunctival injection, periorbital swelling ENT exam: Present: normal exam, mucous membranes moist Neck exam: Present: normal inspection, full ROM. Absent: tenderness, meningismus, lymphadenopathy Respiratory exam: Present: respiratory distress, wheezes, decreased breath sounds. Absent: normal lung sounds bilaterally, rales, rhonchi, stridor Cardiovascular Exam: Present: regular rate, normal rhythm, normal heart sounds. Absent: systolic murmur, diastolic murmur, rubs, gallop, clicks Course Vital Signs 02/03/23 02/03/23 02/03/23 13:09 14:56 15:06 Temperature 97.7 F Pulse Rate 92 92 96 Respiratory 20 Rate Blood Pressure 135/78 O2 Sat by Pulse 100 Oximetry Medical Decision Making - Medical Decision Making Was pt. sent in by a medical professional or institution (, PA, BRINE PROCESS OPERATOR, urgent care, hospital, or half-way...) When possible be specific @ -No Did you speak to anyone other than the patient for history (EMS, parent, family, police, friend...)? What history was obtained from this source @ -No Did you review nursing and triage notes (agree or disagree)? Why? @ -I reviewed and agree with nursing and triage notes Were old charts reviewed (outside hosp., previous admission, EMS record, old EKG, old radiological studies, urgent care reports/EKG's, half-way records)? Report findings @ -No old charts were reviewed Differential Diagnosis (chest pain, altered mental status, abdominal pain women, abdominal pain men, vaginal bleeding, weakness, fever, dyspnea, syncope, heada tiburcio, dizziness, GI bleed, back pain, seizure, CVA, palpatations, mental health, musculoskeletal)? @ -Differential Dyspnea: Coronary syndrome, arrhythmia, tamponade, asthma, COPD, pulmonary embolism, pneumonia, pneumothorax, pulmonary effusion, anaphylaxis, diabetic ketoacidosis, flailed chest, pulmonary contusion, diaphragmatic rupture, anemia, neuromuscular, this is not meant to be an all-inclusive list. ble EKG interpreted by me (3pts min.). @ -None X-rays interpreted by me (1pt min.). @ -Chest x-ray shows no evidence of pneumonia, pneumothorax or other acute processes. CT interpreted by me (1pt min.). @ -None done U/S interpreted by me (1pt. min.). @ -None done What testing was considered but not performed or refused? (CT, X-rays, U/S, labs)? Why? @ -None What meds were considered but not given or refused? Why? @ -None Did you discuss the management of the patient with other professionals (professionals i.e. , PA, BRINE PROCESS OPERATOR, lab, RT, psych nurse, social service director, epic specialist, teacher, professional security officer, rn case manager hospice)? Give summary @ -No Was smoking cessation discussed for >3mins.? @ -No Was critical care preformed (if so, how long)? @ -No Were there social determinants of health that impacted care today? How? ( Homelessness, low income, unemployed, alcoholism, drug addiction, transportation, low edu. Level, literacy, decrease access to med. care, prison, rehab)? @ -No Was there de-escalation of care discussed even if they declined (Discuss DNR or withdrawal of care, Hospice)? DNR status @ -No What co-morbidities impacted this encounter? (DM, HTN, Smoking, COPD, CAD, Cancer, CVA, ARF, Chemo, Hep., AIDS, mental health diagnosis, sleep apnea, morbid obesity)? @ -Asthma Was patient admitted / discharged? Hospital course, mention meds given and route, prescriptions, significant lab abnormalities, going to OR and other pertinent info. @ -Discharged patient felt improved after DuoNeb treatment, Solu-Medrol. Patient be discharged with prednisone, Symbicort, albuterol inhaler she does have a nebulizer at home instructed to use she'll return for worsening changes symptoms. Undiagnosed new problem with uncertain prognosis? @ -No Drug Therapy requiring intensive monitoring for toxicity (Heparin, Nitro, Insulin, Cardizem)? @ -No Were any procedures done? @ -No Diagnosis/symptom? @ -Acute asthma exacerbation Acute, or Chronic, or Acute on Chronic? @ -Acute Uncomplicated (without systemic symptoms) or Complicated (systemic symptoms)? @ -, Complicated Side effects of treatment? @ -No Exacerbation, Progression, or Severe Exacerbation? @ -Exacerbation Poses a threat to life or bodily function? How? (Chest pain, [place], [place], pneumonia, PE, COPD, DKA, ARF, appy, cholecystitis, CVA, Diverticulitis, Homicidal, Suicidal, threat to staff... and all critical care pts) @ -No Disposition Clinical Impression: Asthma with exacerbation Disposition: HOME SELF-CARE Condition: Stable Instructions (If sedation given, give patient instructions): Asthma (ED) Additional Instructions: Please return to the Emergency Department if symptoms worsen or any other concerns. Prescriptions: predniSONE 50 mg PO DAILY #5 tab Budesonide-Formot 160-4.5 Mcg [Symbicort 160-4.5 Mcg Inhaler] 2 puff INHALATION RT-BID #1 each Albuterol Inhaler [Ventolin Hfa Inhaler] 1 - 2 puff INHALATION Q6H PRN #1 each PRN Reason: Shortness Of Breath Is patient prescribed a controlled substance at d/c from ED?: No Referrals: None,Stated [Primary Care Provider] - 1-2 days Time of Disposition: 15:45
[2023-02-03 16:13] VITALS: RESP 18
== END 2023-02-03 16:13 | disposition home or self-care (01) ==
LOC: EC 13:06
DX: J45.901 Unspecified asthma with (acute) exacerbation (principal); F17.200 Nicotine dependence, unspecified, uncomplicated; F12.90 Cannabis use, unspecified, uncomplicated; Z79.899 Other long term (current) drug therapy; Z91.030 Bee allergy status
CPT/HCPCS: 94640; 71046; 99285; 96372; J2930

== ENCOUNTER 2023-09-20 11:24 | Emergency (ER) | payer OTHER ==
[2023-09-20] MEDS ORDERED: IPRATROPIUM-ALBUTEROL 3 ML NEB INHALATION STA ×2 (11:35→12:03)
[2023-09-20 11:49] VITALS: BP 115/66
[2023-09-20] MEDS ORDERED: methylPREDNISolone SOD SUCCI 125 MG/2 ML VIAL IM ONE (12:06)
--- NOTE | 2023-09-20 12:06 | ED ---
SOB HPI - General Chief Complaint: Shortness of Breath Stated Complaint: SHRUTI Time Seen by Provider: 09/20/23 11:51 Source: patient, RN notes reviewed Mode of arrival: ambulatory Limitations: no limitations - History of Present Illness Initial Comments: This is a 33-year-old female who presents to the emergency department for shortness of breath. Reports increasing shortness of breath over the last week. States that she has asthma and has been without her Symbicort for one week. She has to wait for her primary care provider to get insurance authorization again before they will send this in, however she states that this typically goes through pretty quickly. She is also almost out of her albuterol inhaler and breathing treatments. She has associated coughing. Denies any chest pain. States that this feels like an asthma exacerbation as opposed to something else. Denies any fever/chills or sick contacts. She does also note going through a lot of anxiety this week, which she believes is a contributing factor. MD Complaint: shortness of breath, cough - Related Data Home Medications Medication Instructions Recorded Confirmed Albuterol Inhaler [Ventolin Hfa 2 puff INHALATION RT-Q6H PRN 06/04/22 06/04/22 Inhaler] Ipratropium-Albuterol Nebulize 3 ml INHALATION RT-DAILY 06/04/22 06/04/22 [Duoneb 0.5 mg-3 mg/3 ml Soln] Montelukast Sodium [Singulair] 10 mg PO DAILY 06/04/22 06/04/22 Previous Rx's Medication Instructions Recorded predniSONE 50 mg PO DAILY #4 tab 06/04/22 predniSONE 50 mg PO DAILY #5 tab 02/03/23 Albuterol Inhaler [Ventolin Hfa 1 - 2 puff INHALATION Q6H PRN #1 09/20/23 Inhaler] each Budesonide-Formot 160-4.5 Mcg 2 puff INHALATION BID #1 each 09/20/23 [Symbicort 160-4.5 Mcg Inhaler] Budesonide-Formot 160-4.5 Mcg 2 puff INHALATION RT-BID #1 each 09/20/23 [Symbicort 160-4.5 Mcg Inhaler] Ipratropium-Albuterol Nebulize 3 ml INHALATION Q4-6H PRN #90 ml 12/17/23 [Duoneb 0.5 mg-3 mg/3 ml Soln] predniSONE 50 mg PO DAILY 5 Days #5 tab 09/20/23 Allergies Allergy/AdvReac Type Severity Reaction Status Date / Time bee venom protein (honey bee) Allergy Anaphylaxis Verified 09/20/23 11:31 Review of Systems ROS Statement: Those systems with pertinent positive or pertinent negative responses have been documented in the HPI. ROS Other: All systems not noted in ROS Statement are negative. Past Medical History Past Medical History: Asthma, Pneumonia Additional Past Medical History / Comment(s): BRONCHITIS, anemia History of Any Multi-Drug Resistant Organisms: None Reported Past Surgical History: Section, Tubal Ligation Additional Past Surgical History / Comment(s): c-sect x 3 Past Anesthesia/Blood Transfusion Reactions: No Reported Reaction Past Psychological History: No Psychological Hx Reported Smoking Status: Current every day smoker Past Alcohol Use History: Rare Past Drug Use History: Marijuana - Past Family History Mother Family Medical History: Asthma, Thyroid Disorder Additional Family Medical History / Comment(s): cholecystitis Father Family Medical History: Unable to Obtain General Exam Limitations: no limitations General appearance: alert, in no apparent distress Head exam: Present: atraumatic, normocephalic, normal inspection Respiratory exam: Present: wheezes, decreased breath sounds, prolonged expiratory Cardiovascular Exam: Present: regular rate, normal rhythm, normal heart sounds. Absent: systolic murmur, diastolic murmur, rubs, gallop, clicks Neurological exam: Present: alert, oriented X3, CN II-XII intact Psychiatric exam: Present: normal affect, normal mood Skin exam: Present: warm, dry, intact, normal color. Absent: rash Course Vital Signs 09/20/23 09/20/23 09/20/23 11:29 11:41 11:50 Temperature 98.7 F Pulse Rate 60 105 H 110 H Respiratory 26 H Rate Blood Pressure 115/66 O2 Sat by Pulse 96 Oximetry 09/20/23 09/20/23 09/20/23 12:15 12:26 12:59 Temperature 98.9 F Pulse Rate 104 H 106 H 98 Respiratory 20 Rate Blood Pressure O2 Sat by Pulse 98 Oximetry Medical Decision Making - Medical Decision Making This is a 33-year-old female who presents to the emergency department for shortness of breath. Was pt. sent in by a medical professional or institution? @ -No Did you speak to anyone other than the patient for history? @ -No Did you review nursing and triage notes? @ -Yes, and I agree, it is accurate with regards to the patient's symptoms. Were old charts reviewed? @ -No Differential Diagnosis? @ -Differential Dyspnea: Coronary syndrome, arrhythmia, tamponade, asthma, COPD, pulmonary embolism, pneumonia, pneumothorax, pulmonary effusion, anaphylaxis, diabetic ketoacidosis, flailed chest, pulmonary contusion, diaphragmatic rupture, anemia, neuromuscular, this is not meant to be an all-inclusive list. EKG interpreted by me (3pts min.)? @ -EKG interpreted by me demonstrating the following: Sinus tachycardia. Ventricular rate 111 beats per minute, [place] interval 128 ms, QRS duration 85 ms, QTC 371 ms. X-rays interpreted by me (1pt min.)? @ -Not obtained CT interpreted by me (1pt min.)? @ -Not obtained U/S interpreted by me (1pt. min.)? @ -Not obtained What testing was considered but not performed? (CT, X-rays, U/S, labs)? Why? @ -We discussed a chest x-ray and cepheid 4-plex, however the patient declined because this felt like a typical asthma exacerbation and would not offer anymore information. What meds were considered but not given? Why? @ -None Did you discuss the management of the patient with other professionals? @ -No Did you reconcile home meds? @ -No Was smoking cessation discussed for >3mins.? @ -No Was critical care preformed (if so, how long)? @ -No Were there social determinants of health that impacted care today? How? (Homelessness, low income, unemployed, alcoholism, drug addiction, transportation, low edu. Level, literacy, decrease access to med. care, long-term, rehab)? @ -No Was there de-escalation of care discussed even if they declined? (Discuss DNR or withdrawal of care, Hospice)? @ -No What co-morbidities impacted this encounter? (DM, HTN, Smoking, COPD, CAD, Cancer, CVA, Hep., AIDS, mental health diagnosis, sleep apnea, morbid obesity)? @ -Asthma Was patient admitted / discharged? @ -Discharged. I did offer to obtain a chest x-ray and Cepheid 4-Plex testing for further evaluation, however the patient declined, saying that this feels like a typical asthma exacerbation for her and no further workup needs to be done at this time. She was given 2 DuoNeb breathing treatments in the emergency department which she felt were very helpful. She was also given a dose of IM Solu-Medrol. Prescription for 5 day course of prednisone provided with dosing instructions reviewed. She was also given refills on her Symbicort, albuterol inhaler, and DuoNeb breathing treatments. Patient otherwise discharged home in stable condition. Undiagnosed new problem with uncertain prognosis? @ -None Drug Therapy requiring intensive monitoring for toxicity (Heparin, Nitro, Insulin, Cardizem)? @ -None Were any procedures done? @ -None Diagnosis/symptom? @ -Asthma exacerbation Acute, or Chronic, or Acute on Chronic? @ -Acute on chronic Uncomplicated (without systemic symptoms) or Complicated (systemic symptoms)? @ -Uncomplicated Side effects of treatment? @ -None Exacerbation, Progression, or Severe Exacerbation] @ -Exacerbation Poses a threat to life or bodily function? @ -No Return precautions reviewed in depth, the patient is instructed to return to the emergency department with any new, worsening, or concerning symptoms. Patient verbalized understanding. This case was discussed in detail with the attending ED physician, Dr. Long. Presentation, findings, and treatment plan discussed in detail as well. Disposition Clinical Impression: Asthma exacerbation Disposition: HOME SELF-CARE Instructions (If sedation given, give patient instructions): Asthma (ED) Additional Instructions: Return to the emergency department with any new, worsening, or concerning symptoms. Take the prednisone daily for 5 days. Continue to use the DuoNeb breathing treatments, albuterol inhaler, and Symbicort as prescribed. Follow up with your primary care provider in 1-2 days. Prescriptions: Ipratropium-Albuterol Nebulize [Duoneb 0.5 mg-3 mg/3 ml Soln] 3 ml INHALATION Q4-6H PRN #90 ml PRN Reason: Shortness Of Breath predniSONE 50 mg PO DAILY 5 Days #5 tab Budesonide-Formot 160-4.5 Mcg [Symbicort 160-4.5 Mcg Inhaler] 2 puff INHALATION RT-BID #1 each Budesonide-Formot 160-4.5 Mcg [Symbicort 160-4.5 Mcg Inhaler] 2 puff INHALATION BID #1 each Albuterol Inhaler [Ventolin Hfa Inhaler] 1 - 2 puff INHALATION Q6H PRN #1 each PRN Reason: Shortness Of Breath Is patient prescribed a controlled substance at d/c from ED?: No Referrals: None,Stated [Primary Care Provider] - 1-2 days
[2023-09-20 13:26] VITALS: PULSE 98; RESP 20; TEMP 98.9
== END 2023-09-20 14:12 | disposition home or self-care (01) ==
LOC: EC 11:24
DX: J45.901 Unspecified asthma with (acute) exacerbation (principal); R00.0 Tachycardia, unspecified; F17.200 Nicotine dependence, unspecified, uncomplicated; F12.90 Cannabis use, unspecified, uncomplicated; Z91.030 Bee allergy status; Z79.899 Other long term (current) drug therapy
CPT/HCPCS: 94640 ×2; 99285; 96372; J2930

== ENCOUNTER 2024-08-09 06:40 | Observation (INO) | payer OTHER ==
--- NOTE | 2024-08-09 07:16 | ED ---
General Adult HPI - General Chief complaint: Shortness of Breath Stated complaint: asthma, SOB Time Seen by Provider: 08/09/24 07:02 Source: patient, RN notes reviewed Limitations: no limitations - History of Present Illness Initial comments: Patient is a 34-year-old female present to the emergency department with concerns for difficulty breathing. Symptoms have been present the past couple of days. Patient does have some congestion in her chest and upper airways. No fever. Patient has mild nonproductive cough. Patient does have history of similar symptoms previously associated with her asthma. Patient took a nebulizer a couple of times without improvement. - Related Data Home Medications Medication Instructions Recorded Confirmed Ipratropium-Albuterol Nebulize 3 ml INHALATION RT-QID PRN 06/04/22 08/09/24 [Duoneb 0.5 mg-3 mg/3 ml Soln] Albuterol Inhaler [Ventolin Hfa 2 puff INHALATION RT-QID PRN 08/09/24 08/09/24 Inhaler] Budesonide-Formot 160-4.5 Mcg 2 puff INHALATION RT-BID 08/09/24 08/09/24 [Symbicort 160-4.5 Mcg Inhaler] Allergies Allergy/AdvReac Type Severity Reaction Status Date / Time bee venom protein (honey bee) Allergy Anaphylaxis Verified 08/09/24 09:56 Review of Systems ROS Statement: Those systems with pertinent positive or pertinent negative responses have been documented in the HPI. ROS Other: All systems not noted in ROS Statement are negative. Constitutional: Denies: fever, chills Eyes: Denies: eye pain ENT: Reports: congestion. Denies: ear pain, throat pain Respiratory: Reports: as per HPI, cough, dyspnea, wheezes Cardiovascular: Denies: chest pain Endocrine: Denies: fatigue Gastrointestinal: Denies: abdominal pain Genitourinary: Denies: dysuria Musculoskeletal: Denies: back pain Skin: Denies: rash Neurological: Denies: weakness Past Medical History Past Medical History: Asthma, Pneumonia Additional Past Medical History / Comment(s): BRONCHITIS, anemia History of Any Multi-Drug Resistant Organisms: None Reported Past Surgical History: Section, Tubal Ligation Additional Past Surgical History / Comment(s): c-sect x 3 Past Anesthesia/Blood Transfusion Reactions: No Reported Reaction Past Psychological History: No Psychological Hx Reported Smoking Status: Current every day smoker Past Alcohol Use History: Rare Past Drug Use History: Marijuana - Past Family History Mother Family Medical History: Asthma, Thyroid Disorder Additional Family Medical History / Comment(s): cholecystitis Father Family Medical History: Unable to Obtain General Exam Limitations: no limitations General appearance: alert, in no apparent distress Head exam: Present: normocephalic Eye exam: Present: normal appearance Neck exam: Present: normal inspection Respiratory exam: Present: wheezes, decreased breath sounds Cardiovascular Exam: Present: normal rhythm, tachycardia GI/Abdominal exam: Present: soft. Absent: tenderness Extremities exam: Present: normal inspection Neurological exam: Present: alert Psychiatric exam: Present: normal affect, normal mood Skin exam: Present: normal color Course Vital Signs 08/09/24 08/09/24 08/09/24 06:43 07:27 07:32 Temperature 98 F Pulse Rate 122 H 108 H 108 H Respiratory 18 Rate Blood Pressure 110/70 O2 Sat by Pulse 99 Oximetry 08/09/24 08/09/24 08/09/24 07:45 09:59 10:11 Temperature Pulse Rate 112 H 90 92 Respiratory Rate Blood Pressure O2 Sat by Pulse Oximetry 08/09/24 10:16 Temperature Pulse Rate 107 H Respiratory 20 Rate Blood Pressure 126/81 O2 Sat by Pulse 98 Oximetry Medical Decision Making - Medical Decision Making Was pt. sent in by a medical professional or institution ([facility], [facility], urgent care, hospital, or senior living...) When possible be specific @ -No Did you speak to anyone other than the patient for history (EMS, parent, family, police, friend...)? What history was obtained from this source @ -No Did you review nursing and triage notes (agree or disagree)? Why? @ -I reviewed and agree with nursing and triage notes Were old charts reviewed (outside hosp., previous admission, EMS record, old EKG, old radiological studies, urgent care reports/EKG's, senior living records)? Report findings @ -No old charts were reviewed Differential Diagnosis (chest pain, altered mental status, abdominal pain women, abdominal pain men, vaginal bleeding, weakness, fever, dyspnea, syncope, headache, dizziness, GI bleed, back pain, seizure, CVA, palpatations, mental health, musculoskeletal)? @ -Differential Dyspnea: Coronary syndrome, arrhythmia, tamponade, asthma, COPD, pulmonary embolism, pneumonia, pneumothorax, pulmonary effusion, anaphylaxis, diabetic ketoacidosis, flailed chest, pulmonary contusion, diaphragmatic rupture, anemia, neur omuscular, this is not meant to be an all-inclusive list. EKG interpreted by me (3pts min.). @ -As above X-rays interpreted by me (1pt min.). @ -None done CT interpreted by me (1pt min.). @ -None done U/S interpreted by me (1pt. min.). @ -None done What testing was considered but not performed or refused? (CT, X-rays, U/S, labs)? Why? @ -None What meds were considered but not given or refused? Why? @ -None Did you discuss the management of the patient with other professionals (professionals i.e. , PA, [employer]HS TUTOR, lab, RT, psych nurse, social media sr strategy manager, service greeter, teacher, chief safety officer, pillowcase maker)? Give summary @ -Case discussed with Dr. Aaron who will admit covering hospital call Was smoking cessation discussed for >3mins.? @ -No Was critical care preformed (if so, how long)? @ -31 minutes critical care time Were there social determinants of health that impacted care today? How? (Homelessness, low income, unemployed, alcoholism, drug addiction, transportation, low edu. Level, literacy, decrease access to med. care, [facility], rehab)? @ -No Was there de-escalation of care discussed even if they declined (Discuss DNR or withdrawal of care, Hospice)? DNR status @ -No What co-morbidities impacted this encounter? (DM, HTN, Smoking, COPD, CAD, Cancer, CVA, ARF, Chemo, Hep., AIDS, mental health diagnosis, sleep apnea, morbid obesity)? @ -None Was patient admitted / discharged? Hospital course, mention meds given and route, prescriptions, significant lab abnormalities, going to OR and other pertinent info. @ -Patient presents with concerns for dyspnea with history of asthma and wheezing. Patient given 3 nebulizer treatments and still has symptoms. Heart rate elevated. Lung sounds remain somewhat diminished and some wheezing. Patient will be admitted. Admission orders written. Consult will be placed. Undiagnosed new problem with uncertain prognosis? @ -No Drug Therapy requiring intensive monitoring for toxicity (Heparin, Nitro, Insulin, Cardizem)? @ -No Were any procedures done? @ -No Diagnosis/symptom? @ -Status asthmaticus Acute, or Chronic, or Acute on Chronic? @ -Acute Uncomplicated (without systemic symptoms) or Complicated (systemic symptoms)? @ -Default Side effects of treatment? @ -No Exacerbation, Progression, or Severe Exacerbation? @ -Exacerbation of asthma Poses a threat to life or bodily function? How? (Chest pain, [place], [place], pneumonia, PE, COPD, DKA, ARF, appy, cholecystitis, CVA, Diverticulitis, Homicidal, Suicidal, threat to staff... and all critical care pts) @ -Threat to pulmonary function - Lab Data Lab Results 08/09/24 Range/Units 07:57 Influenza Type A (PCR) Not Detected (Not Detectd) Influenza Type B (PCR) Not Detected (Not Detectd) RSV (PCR) Not Detected (Not Detectd) SARS-CoV-2 (PCR) Not Detected (Not Detectd) Disposition Clinical Impression: Asthma with status asthmaticus Disposition: ADMITTED IP TO THIS HOSP Is patient prescribed a controlled substance at d/c from ED?: No Referrals: Ruy Coy DO [Primary Care Provider] - 1-2 days Time of Disposition: 12:14
[2024-08-09] MEDS: IPRATROPIUM-ALBUTEROL 3 ML NEB INHALATION STA ×3 (07:26→09:59)
--- NOTE | 2024-08-09 08:13 | XR ---
EXAMINATION TYPE: XR chest 2V DATE OF EXAM: 08/09/2024 COMPARISON: NONE CLINICAL INDICATION: Female, 34 years old with history of demetria; , TECHNIQUE: XR chest 2V views of the chest. FINDINGS: The lungs are clear and there is no pneumothorax, pleural effusion, or focal pneumonia. Heart size normal and no overt failure. Osseous structures intact.. IMPRESSION: 1. No acute process. [facility], , 08/09/2024 8:11 AM
[2024-08-09] MEDS ORDERED: IPRATROPIUM-ALBUTEROL 3 ML NEB INHALATION PRN (12:15)
[2024-08-09] MEDS ORDERED: NALOXONE 0.4 MG/ML 1 ML VIAL IVP PRN (12:15)
[2024-08-09] MEDS: methylPREDNISolone SOD SUCCI 125 MG/2 ML VIAL IV STA (12:27)
--- NOTE | 2024-08-09 14:03 | P.HPIM ---
History of Present Illness H&P Date: 08/09/24 History of Presenting Illness: Patient is a pleasant 34-year-old female with a past medical history of severe persistent bronchial asthma and continued nicotine dependence. Patient reports smoking anywhere from quarter pack to half a pack of cigarettes daily. She reports she follows with functional tester, Dr. Coy and last seen him in office a couple of months ago. She presented to the emergency department with a chief complaint of worsening shortness of breath and wheezing. Patient reports she has been using her inhalers at home with no improvement. She denies having any recent infections, fevers, chills, diaphoresis, nasal congestion or drainage, sore throat, or exposure to known ill contacts. On arrival to our facility, patient underwent evaluation in the emergency department. Vital signs upon arrival show blood pressure 110/70, heart rate 122, respiratory rate 18, temp 98.0 F, and SpO2 of 99% on room air. Chest x-ray completed negative for acute cardiopulmonary process. Labs completed and reviewed. CBC showing leukocytosis with WBC count of 13.3. BMP showing non-anion gap metabolic acidosis with chloride of 112, bicarb of 18, and anion gap of 8. Blood glucose 83. Magnesium 1.9. Liver profile unremarkable. Serum hCG was negative. Influenza A, influenza B, COVID, and RSV were negative. Patient admitted under services with consultation to pulmonology. Review of systems: Pertinent positives and negatives as discussed in HPI, a complete review of systems was performed and all other systems are negative. Physical exam: Vital signs reviewed and stable. General: Nontoxic, no distress and appears stated age. Derm: Skin warm and dry, normal coloration for ethnicity. Head: Atraumatic, normocephalic and symmetric. Eyes: EOM's intact, no lid lag, and anicteric sclera Mouth: no lip lesions, mucus membranes moist Cardiovascular: regular rate and rhythm with normal S1S2, no murmur, positive posterior tibial pulses bilaterally, and cap refill < 2 seconds. Lungs: Respirations even, regular, and unlabored on room air. Lungs tight and diminished with diffuse expiratory wheezing bilaterally.. Abdominal: soft, nontender to palpation, no guarding, no appreciable organomegaly Ext: ROM intact. No gross muscle atrophy, no edema, no contractures Neuro: Speech clear, face symmetrical and CN II-XII grossly intact with no noted focal neuro deficits Psych: Alert and oriented to person, place, time, and situation. Appropriate and pleasant affect. Assessment and Plan of Care: Severe persistent bronchial asthma with acute exacerbation Nicotine dependence Leukocytosis Non-anion gap metabolic acidosis -Consult to Pulmonology -Oxygenation to be administered and titrated as needed to maintain SPO2 equal to or greater than 92% -Telemetry monitoring. -Monitor pulse-oximetry -Duonebs scheduled 4 times daily and as needed for SOB and/or wheezing -Incentive Spirometry -Steroids: Solu-Medrol 60 mg IV every 6 hours -Continue Pulmicort 0.5 mg twice daily and formoterol 20 mcg twice daily -Recommend smoking cessation, order placed for nicotine patch per patient's request 14 mg every 24 hours. CODE STATUS: Full Code DVT prophylaxis: Heparin Anticipated discharge date: Pending clinical course Anticipated discharge place: Home Patient was seen independently by Nurse Practitioner. This document was prepared using [employer] dictation software. Please allow for errors in archeology professor while rare they do occur. Jimenez Soler NP rendered care for this patient independently, reviewed the findings and plan as documented in the note above. I did not physically speak with or examine the patient on this date. . Past Medical History Past Medical History: Asthma, Pneumonia Additional Past Medical History / Comment(s): BRONCHITIS, anemia History of Any Multi-Drug Resistant Organisms: None Reported Past Surgical History: Section, Tubal Ligation Additional Past Surgical History / Comment(s): c-sect x 3 Past Anesthesia/Blood Transfusion Reactions: No Reported Reaction Past Psychological History: No Psychological Hx Reported Smoking Status: Current every day smoker Past Alcohol Use History: Rare Past Drug Use History: Marijuana - Past Family History Mother Family Medical History: Asthma, Thyroid Disorder Additional Family Medical History / Comment(s): cholecystitis Father Family Medical History: Unable to Obtain Medications and Allergies Home Medications Medication Instructions Recorded Confirmed Type Ipratropium-Albuterol Nebulize 3 ml INHALATION RT-QID PRN 06/04/22 08/09/24 History [Duoneb 0.5 mg-3 mg/3 ml Soln] Albuterol Inhaler [Ventolin Hfa 2 puff INHALATION RT-QID PRN 08/09/24 08/09/24 History Inhaler] Budesonide-Formot 160-4.5 Mcg 2 puff INHALATION RT-BID 08/09/24 08/09/24 History [Symbicort 160-4.5 Mcg Inhaler] Allergies Allergy/AdvReac Type Severity Reaction Status Date / Time bee venom protein (honey bee) Allergy Anaphylaxis Verified 08/09/24 09:56 Physical Exam Vitals: Vital Signs Temp Pulse Resp BP Pulse Ox 08/09/24 12:23 96 19 123/78 96 08/09/24 10:16 107 H 20 126/81 98 08/09/24 10:11 92 08/09/24 09:59 90 08/09/24 07:45 112 H 08/09/24 07:32 108 H 08/09/24 07:27 108 H 08/09/24 06:43 98 F 122 H 18 110/70 99 Intake and Output 08/08/24 08/09/24 08/09/24 22:59 06:59 14:59 Other: Weight 58.967 kg Results CBC & Chem 7: 08/09/24 13:57 08/09/24 13:57
[2024-08-09 14:21] LABS: HCT 37.3 % (34.0-46.0); HGB 11.7 gm/dL (11.4-16.0); Hypochromasia Slight; MCH 25.1 pg (25.0-35.0); MCHC 31.3 g/dL (31.0-37.0); MCV 80.3 fL (80.0-100.0); Platelet Count 220 k/uL (150-450); RBC 4.64 m/uL (3.80-5.40); RDW 15.5 % (11.5-15.5); WBC 13.3 k/uL (3.8-10.6)
--- NOTE | 2024-08-09 14:22 | P.CNPUL ---
History of Present Illness Consult date: 08/09/24 Reason for consult: dyspnea, asthma History of present illness: This is a very pleasant 34-year-old female patient is coming in with worsening shortness of breath with asthma control. The patient is known to us in our office. The patient has followed up with us for severe persistent bronchial asthma and she has required frequent visitations to the office, and frequent steroid use to control her asthma. In fact, she received a Depo-Medrol shot in our office on 06/14/2024. She has required steroids around 2-3 times on a yearly basis to optimize her asthma. She is also maintained on Symbicort 2 puffs twice a day and albuterol rescue here on an as-needed basis. She has quit using Singulair. The patient has had also previous hospitalization for asthma exacerbation. Based on review of the record, she was hospitalized back in 2020 2021. Nevertheless, I do see multiple emergency positive and visitations back in 2022 and in 2021 for asthma exacerbations. More recently, the patient was exposed to smoke fumes and welding fumes. 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 This exacerbated her asthma and she has been short of breath over the past 48 hours and was very difficult for her to breathe and she was overutilizing albuterol rescue inhaler. To make matters worse, she ran out of her Symbicort. She ended up coming into the emergency. Her chest x-ray shows hyperinflation and there is no other acute abnormalities. Blood work has not been done. The viral screen has been negative. The patient is an ex- smoker. She is currently on room air oxygen with a pulse ox of 96%. She is actively bronchospastic and wheezy. Breathing is done labored at rest. She has occasional coughing episodes, no significant sputum production. No heartburn. No history of any environmental allergies. She has not utilize any form of Biologics in the past. She has 3 pet dogs at home Review of Systems Constitutional: Denies chills, Denies fever Eyes: denies as per HPI, denies blurred vision, denies bulging eye, denies decreased vision, denies diplopia, denies discharge, denies dry eye, denies irritation, denies itching, denies pain, denies photophobia, denies loss of peripheral vision, denies loss of vision, denies tunnel vision/blind spots Ears: deny: decreased hearing, ear discharge, earache, tinnitus Ears, nose, mouth and throat: Reports as per HPI Breasts: absent: as per HPI, change in shape, gynecomastia, masses, nipple discharge, pain, skin changes, swelling Cardiovascular: Reports decreased exercise tolerance, Reports dyspnea on exertion Respiratory: Reports cough, Reports dyspnea, Reports wheezing Gastrointestinal: Reports as per HPI Genitourinary: Reports as per HPI Menstruation: Reports as per HPI Musculoskeletal: Reports as per HPI Musculoskeletal: absent: ankle pain, ankle stiffness, ankle swelling, as per HPI, elbow pain, elbow stiffness, elbow swelling, foot pain, foot stiffness, foot swelling, hand pain, hand stiffness, hand swelling, hip pain, hip stiffness, hip swelling, knee pain, knee stiffness, knee swelling, shoulder pain, shoulder stiffness, shoulder swelling, wrist pain, wrist stiffness, wrist swelling Integumentary: Reports as per HPI Neurological: Reports as per HPI Psychiatric: Reports as per HPI Endocrine: Reports as per HPI Hematologic/Lymphatic: Reports as per HPI Allergic/Immunologic: Reports as per HPI Past Medical History Past Medical History: Asthma, Pneumonia Additional Past Medical History / Comment(s): BRONCHITIS, anemia History of Any Multi-Drug Resistant Organisms: None Reported Past Surgical History: Section, Tubal Ligation Additional Past Surgical History / Comment(s): c-sect x 3 Past Anesthesia/Blood Transfusion Reactions: No Reported Reaction Past Psychological History: No Psychological Hx Reported Smoking Status: Current every day smoker Past Alcohol Use History: Rare Past Drug Use History: Marijuana - Past Family History Mother Family Medical History: Asthma, Thyroid Disorder Additional Family Medical History / Comment(s): cholecystitis Father Family Medical History: Unable to Obtain Medications and Allergies Home Medications Medication Instructions Recorded Confirmed Type Ipratropium-Albuterol Nebulize 3 ml INHALATION RT-QID PRN 06/04/22 08/09/24 History [Duoneb 0.5 mg-3 mg/3 ml Soln] Albuterol Inhaler [Ventolin Hfa 2 puff INHALATION RT-QID PRN 08/09/24 08/09/24 History Inhaler] Budesonide-Formot 160-4.5 Mcg 2 puff INHALATION RT-BID 08/09/24 08/09/24 History [Symbicort 160-4.5 Mcg Inhaler] Allergies Allergy/AdvReac Type Severity Reaction Status Date / Time bee venom protein (honey bee) Allergy Anaphylaxis Verified 08/09/24 09:56 Physical Exam Vitals: Vital Signs Temp Pulse Pulse Resp BP BP Pulse Ox 08/09/24 14:10 98.2 F 86 16 124/82 96 08/09/24 13:57 98 18 140/83 95 08/09/24 12:23 96 19 123/78 96 08/09/24 10:16 107 H 20 126/81 98 08/09/24 10:11 92 08/09/24 09:59 90 08/09/24 07:45 112 H 08/09/24 07:32 108 H 08/09/24 07:27 108 H 08/09/24 06:43 98 F 122 H 18 110/70 99 Intake and Output 08/08/24 08/09/24 08/09/24 22:59 06:59 14:59 Other: Weight 58.967 kg The patient appeared well nourished and normally developed. Vital signs as documented. Head exam is unremarkable. No scleral icterus or corneal arcus noted. Neck is without jugular venous distension, thyromegaly, or carotid bruits. Carotid upstrokes are brisk bilaterally. Lungs are diminished bilaterally and the patient has prolongation of the escalation of breathing and diffuse expiratory wheezes heard throughout lung tubbs bilaterally. She is not using accessory muscles of breathing at this point in time. Cardiac exam reveals the PMI to be normally sized and situated. Rhythm is regular. First and second heart sounds normal. No murmurs, rubs or gallops. Abdominal exam reveals normal bowel sounds, no masses, no organomegaly and no aortic enlargement. Extremities are nonedematous and both femoral and pedal pulses are normal. Examination of the skin revealed no evidence of significant rashes, suspicious appearing nevi or other concerning lesions. Neurologically, the patient is awake and alert and the patient does not have any focal neurological deficit. Cranial nerves are essentially intact. Results - Laboratory Findings ABG Influenza Type A (PCR) Not Detected (Not Detectd) 08/09/24 07:57 Influenza Type B (PCR) Not Detected (Not Detectd) 08/09/24 07:57 RSV (PCR) Not Detected (Not Detectd) 08/09/24 07:57 SARS-CoV-2 (PCR) Not Detected (Not Detectd) 08/09/24 07:57 - Diagnostic Findings Chest x-ray: image reviewed Assessment and Plan Plan: Acute exacerbation of asthma with secondary shortness of breath. The patient has severe persistent bronchial asthma at baseline. 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 Her asthma is active as the patient is actively bronchospastic and wheezy Shortness of breath secondary to above Severe persistent bronchial asthma maintained on Symbicort and albuterol ON outpatient basis. Has required frequent emergency department visits. Has required frequent steroid use over the years. Ex-smoker Plan Will place the patient on DuoNeb nebulized treatments [id number] 4 times a day Stop the Symbicort for now and use a combination of Perforomist and Pulmicort updrafts twice a day IV Solu-Medrol 60 mg every 6 hours Labs to be ordered Viral screen is negative Will need to be considered for biologic agents to optimize her asthma on outpatient basis. No significant hypoxemia Chest x-ray is clear and it shows hyperinflation.
[2024-08-09 14:38] LABS: HCG,Qualitative Serum Not Detected
[2024-08-09 14:40] LABS: ALT 16 U/L (4-34); AST 27 U/L (14-36); African American GFR (CKD) >90 (>60 ml/min/1.73 sqM); Albumin 4.6 g/dL (3.5-5.0); Albumin/Globulin Ratio 1.4; Alkaline Phosphatase 73 U/L (38-126); Anion Gap 8 mmol/L; Blood Urea Nitrogen 13 mg/dL (7-17); Calcium 9.1 mg/dL (8.4-10.2); Carbon Dioxide 18 mmol/L (22-30); Chloride 112 mmol/L (98-107); Globulin 3.2 g/dL; Glucose 83 mg/dL (74-99); Magnesium 1.9 mg/dL (1.6-2.3); Non-African American GFR(CKD) >90 (>60 ml/min/1.73 sqM); Potassium 4.2 mmol/L (3.5-5.1); Sodium 138 mmol/L (137-145); Total Bilirubin 0.9 mg/dL (0.2-1.3); Total Protein 7.8 g/dL (6.3-8.2)
[2024-08-09] MEDS: IPRATROPIUM-ALBUTEROL 3 ML NEB INHALATION SCH (15:44)
[2024-08-09] MEDS: HEPARIN SODIUM,PORCINE 5,000 UNIT/ML 1 ML VIAL SQ SCH (16:18)
[2024-08-09] MEDS: NICOTINE 14MG/24HR PATCH TRANSDERM SCH (16:19)
[2024-08-09] MEDS: methylPREDNISolone SOD SUCCI 125 MG/2 ML VIAL IV SCH (18:48)
[2024-08-09] MEDS ORDERED: SYMBICORT 160-4.5 MCG INHALER INHALATION SCH (20:00)
[2024-08-09] MEDS: BUDESONIDE 0.5 MG/2 ML NEBU INHALATION SCH (20:32)
[2024-08-09] MEDS: FORMOTEROL FUMARATE 20 MCG/2 ML NEBU INHALATION SCH (20:32)
[2024-08-10] MEDS: ACETAMINOPHEN TAB 325 MG TAB PO PRN (05:15)
[2024-08-10 08:04] VITALS: TEMP 98.6
[2024-08-10 14:17] VITALS: BP 105/75; PULSE 84; RESP 16
--- NOTE | 2024-08-10 14:52 | P.PN ---
Subjective Progress Note Date: 08/10/24 This is a very pleasant 34-year-old female patient is coming in with worsening shortness of breath with asthma control. The patient is known to us in our office. The patient has followed up with us for severe persistent bronchial asthma and she has required frequent visitations to the office, and frequent steroid use to control her asthma. In fact, she received a Depo-Medrol shot in our office on 06/14/2024. She has required steroids around 2-3 times on a yearly basis to optimize her asthma. She is also maintained on Symbicort 2 puffs twice a day and albuterol rescue here on an as-needed basis. She has quit using Singulair. The patient has had also previous hospitalization for [facility]. Based on review of the record, she was hospitalized back in 2020 2021. Nevertheless, I do see multiple emergency positive and visitations back in 2022 and in 2021 for asthma exacerbations. More recently, the patient was exposed to smoke fumes and welding fumes. 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 This exacerbated her asthma and she has been short of breath over the past 48 hours and was very difficult for her to breathe and she was overutilizing albuterol rescue inhaler. To make matters worse, she ran out of her Symbicort. She ended up coming into the emergency. Her chest x-ray shows hyperinflation and there is no other acute abnormalities. Blood work has not been done. The viral screen has been negative. The patient is an ex-smoker. She is currently on room air oxygen with a pulse ox of 96%. She is actively bronchospastic and wheezy. Breathing is done labored at rest. She has occasional coughing episodes, no significant sputum production. No heartburn. No history of any environmental allergies. She has not utilize any form of Biologics in the past. She has 3 pet dogs at home On 08/10/2024, the patient is feeling significantly improved and she is being considered for discharge. No significant cough or sputum production. No chest tightness. Wheezing has subsided significantly since yesterday. Objective - Vital Signs Vital signs: Vital Signs Temp 98.6 F 08/10/24 14:16 Pulse 84 08/10/24 14:16 Resp 16 08/10/24 14:16 BP 105/75 08/10/24 14:16 Pulse Ox 98 08/10/24 14:16 FiO2 Intake & Output 08/09/24 08/10/24 08/10/24 18:59 06:59 18:59 Weight 58.967 kg Other: # Voids 3 6 - Exam The patient appeared well nourished and normally developed. Vital signs as documented. Head exam is unremarkable. No scleral icterus or corneal arcus noted. Neck is without jugular venous distension, thyromegaly, or carotid bruits. Carotid upstrokes are brisk bilaterally. Lungs are diminished bilaterally and limited wheezing she is not using accessory muscles of breathing at this point in time. Cardiac exam reveals the PMI to be normally sized and situated. Rhythm is regular. First and second heart sounds normal. No murmurs, rubs or gallops. Abdominal exam reveals normal bowel sounds, no masses, no organomegaly and no aortic enlargement. Extremities are nonedematous and both femoral and pedal pulses are normal. Examination of the skin revealed no evidence of significant rashes, suspicious appearing nevi or other concerning lesions. Neurologically, the patient is awake and alert and the patient does not have any focal neurological deficit. Cranial nerves are essentially intact. - Labs CBC & Chem 7: 08/09/24 13:57 08/09/24 13:57 Labs: Abnormal Lab Results - Last 24 Hours (Table) 08/09/24 Range/Units 13:57 Chloride 112 H (98-107) mmol/L Carbon Dioxide 18 L (22-30) mmol/L Assessment and Plan Plan: Acute exacerbation of asthma with secondary shortness of breath. The patient has severe persistent bronchial asthma at baseline. 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 Her asthma is active as the patient is actively bronchospastic and wheezy, clinically improved on today's evaluation Shortness of breath secondary to above, improved Severe persistent bronchial asthma maintained on Symbicort and albuterol ON o utpatient basis. Has required frequent emergency department visits. Has required frequent steroid use over the years. Ex-smoker Plan The patient is clinically improved. She should be able to go home on a prednisone burst taper starting with 40 mg of edema by 10 mg every 4 days. Important for this patient to go back on her Symbicort maintenance and use albuterol nebulized treatments on an as-needed basis. Follow-up with pulmonary on outpatient basis.
--- NOTE | 2024-08-10 16:11 | P.DS ---
Providers Date of admission: 08/09/24 12:16 Expected date of discharge: 08/10/24 Attending physician: Salvador Humphrey MD Consults: 08/09/24 12:15 Consult Physician Routine Consulting Provider: Juan A Corbin Consult Reason/Comments: Status asthmaticus Do you want consulting provider notified?: Yes Primary care physician: Ruy Coy Hospital Course: Discharge Diagnosis: Severe persistent bronchial asthma with acute exacerbation Nicotine dependence Leukocytosis Non-anion gap metabolic acidosis Hospital Course: Patient is a pleasant 34-year-old female with a past medical history of severe persistent bronchial asthma and continued nicotine dependence. Patient reports smoking anywhere from quarter pack to half a pack of cigarettes daily. She reports she follows with dog hair clipper, Dr. Coy and last seen him in office a couple of months ago. She presented to the emergency department with a chief complaint of worsening shortness of breath and wheezing. Patient reports she has been using her inhalers at home with no improvement. She denies having any recent infections, fevers, chills, diaphoresis, nasal congestion or drainage, sore throat, or exposure to known ill contacts. On arrival to our facility, patient underwent evaluation in the emergency department. Vital signs upon arrival show blood pressure 110/70, heart rate 122, respiratory rate 18, temp 98.0 F, and SpO2 of 99% on room air. Chest x-ray completed negative for acute cardiopulmonary process. Labs completed and reviewed. CBC showing leukocytosis with WBC count of 13.3. BMP showing non-anion gap metabolic acidosis with chloride of 112, bicarb of 18, and anion gap of 8. Blood glucose 83. Magnesium 1.9. Liver profile unremarkable. Serum hCG was negative. Influenza A, influenza B, COVID, and RSV were negative. Patient admitted under services with consultation to pulmonology. She received IV steroids and [id number] breathing treatments. Her condition improving and she is medically stable at this time. Patient cleared by dog hair clipper recommending discharge home with prednisone taper and to follow-up outpatient with dog hair clipper, Dr. Coy in 1 week. Physical exam: Vital signs reviewed and stable. General: Nontoxic, no distress and appears stated age. Derm: Skin warm and dry, normal coloration for ethnicity. Head: Atraumatic, normocephalic and symmetric. Eyes: EOM's intact, no lid lag, and anicteric sclera Mouth: no lip lesions, mucus membranes moist Cardiovascular: regular rate and rhythm with normal S1S2, no murmur, positive posterior tibial pulses bilaterally, and cap refill < 2 seconds. Lungs: Respirations even, regular, and unlabored on room air. Lungs with good and equal air movement, soft expiratory wheeze otherwise no rhonchi, rales, or crackles noted. Abdominal: soft, nontender to palpation, no guarding, no appreciable organomegaly Ext: ROM intact. No gross muscle atrophy, no edema, no contractures Neuro: Speech clear, face symmetrical and CN II-XII grossly intact with no noted focal neuro deficits Psych: Alert and oriented to person, place, time, and situation. Appropriate and pleasant affect. A total of 31 minutes of time were spent preparing this complex discharge summary. Pt was discharged on 08/10/2024 at 2:50 PM Patient was seen independently by Nurse Practitioner. This document was prepared using [employer] dictation software. Please allow for errors in correspondence specialist while rare they do occur. Jimenez Soler NP rendered care for this patient independently, reviewed the findings and plan as documented in the note above. I did not physically speak with or examine the patient on this date. Patient Condition at Discharge: Stable Plan - Discharge Summary Discharge Rx Participant: Yes New Discharge Prescriptions: New predniSONE See Taper PO DIRECTED 12 Days #30 tab Continue Ipratropium-Albuterol Nebulize [Duoneb 0.5 mg-3 mg/3 ml Soln] 3 ml INHALATION RT-QID PRN PRN Reason: Shortness Of Breath Changed Budesonide-Formot 160-4.5 Mcg [Symbicort 160-4.5 Mcg Inhaler] 2 puff INHALATION RT-BID #1 inh Albuterol Inhaler [Ventolin Hfa Inhaler] 2 puff INHALATION RT-QID PRN #1 inh PRN Reason: Shortness Of Breath Discharge Medication List Ipratropium-Albuterol Nebulize [Duoneb 0.5 mg-3 mg/3 ml Soln] 3 ml INHALATION RT-QID PRN 06/04/22 [History] Albuterol Inhaler [Ventolin Hfa Inhaler] 2 puff INHALATION RT-QID PRN #1 inh 08/10/24 [Rx] Budesonide-Formot 160-4.5 Mcg [Symbicort 160-4.5 Mcg Inhaler] 2 puff INHALATION RT-BID #1 inh 08/10/24 [Rx] predniSONE See Taper PO DIRECTED 12 Days #30 tab 08/10/24 [Rx] Follow up Appointment(s)/Referral(s): Ruy Coy DO [Primary Care Provider] - 1-2 days Cathy Mi MD [REFERRING] - 1 Week (PCP that you requested information on to call and establish care with for female exams and other general medical issues. ) Patient Instructions/Handouts: Moderate and Severe Persistent Asthma (DC) Activity/Diet/Wound Care/Special Instructions: Activity: As tolerated. Take breaks as needed. Diet: Heart healthy and carb consistent diet. Avoid salts, or foods with hidden salts such as canned or boxed foods and frozen dinners. Extra salt makes your heart work harder and traps the fluid in your body for longer. Special Instructions: Take all of your medications as directed and remember to keep all of your doctor's appointments and follow-up as needed. Strongly recommend stopping smoking as well as avoiding exposure to any secondhand smoke. Thank you for allowing us to participate in your care, it was truly a pleasure having you for our patient!!! Discharge Disposition: HOME SELF-CARE
== END 2024-08-10 15:27 | disposition home or self-care (01) ==
LOC: EC 06:40 → 6NMEDSUR 12:16
PROVIDERS: ADMIT Internal Medicine; ATTEND Internal Medicine
DX: J45.902 Unspecified asthma with status asthmaticus (principal); E87.20 Acidosis, unspecified; D72.829 Elevated white blood cell count, unspecified; F17.210 Nicotine dependence, cigarettes, uncomplicated; Z79.51 Long term (current) use of inhaled steroids; Z79.899 Other long term (current) drug therapy; Z91.030 Bee allergy status; Z82.5 Family history of asthma and other chronic lower respiratory diseases
CPT/HCPCS: 96376 ×2; 96372; 96374; 99285; 94640 ×4; 80053; 83735; 85027; 84703; 87636; 71046; G0378 ×2; S4990; J1644; J2919 ×2